=== PATIENT | female | born 1965 | race Caucasian/White ===

== ENCOUNTER 2020-11-23 13:46 | Outpatient (REF) | payer MEDICARE, MEDICAID, SELFPAY ==
--- NOTE | ~2020-11-23 | XR_ITS ---
EXAMINATION: XR CERVICAL SPINE CLINICAL INFORMATION: M54.2 - Cervicalgia COMPARISON: Radiographs cervical spine 03/29/2016 TECHNIQUE: Cervical spine is imaged in 4 views: AP, lateral, odontoid, and Fuchs. FINDINGS: The vertebral bodies are normal in height and there is normal cervical lordosis. There is no cervical vertebral compression, focal disc narrowing, erosive change, destructive process, or prevertebral soft tissue swelling. The odontoid is unremarkable. There is some mild anterior spurring mid and lower cervical vertebral bodies. XR/XR cervical spine 3V IMPRESSION: Mild anterior vertebral body spurring. No disc narrowing, vertebral compression, or spondylolisthesis.
--- NOTE | ~2020-11-23 | XR_ITS ---
EXAMINATION: XR SHOULDER, RIGHT CLINICAL INFORMATION: Right shoulder pain. COMPARISON: None. TECHNIQUE: 3 views of the right shoulder. FINDINGS: There is no evidence of acute fracture or dislocation of the right shoulder. Glenohumeral joint unremarkable. No significant degenerative change of the acromioclavicular joint is seen. No evidence of calcific tendinitis. No widening of the coracoclavicular space. XR/XR shoulder RT min 2V IMPRESSION: No significant right shoulder abnormality appreciated.
== END 2020-11-23 13:47 | disposition home or self-care (01) ==
LOC: HO.XRAY 13:46
PROVIDERS: PCP Internal Medicine; Visit Provider Nurse Practitioner Family
DX: M25.511 Pain in right shoulder (principal); M54.2 Cervicalgia; M79.641 Pain in right hand; M25.521 Pain in right elbow; M53.3 Sacrococcygeal disorders, not elsewhere classified; Z88.6 Allergy status to analgesic agent; Z88.0 Allergy status to penicillin; Z88.2 Allergy status to sulfonamides; Z88.8 Allergy status to other drugs, medicaments and biological substances; Z79.899 Other long term (current) drug therapy
CPT/HCPCS: 72040; 73030; 99212

== ENCOUNTER 2021-01-11 19:47 | Emergency (ER) | payer MEDICARE, MEDICAID, SELFPAY ==
[2021-01-11 20:08] VITALS: BP 183/93; PULSE 73; RESP 18; TEMP 36.7; O2SAT 100; BMI 26.6
--- NOTE | 2021-01-11 20:57 | ED_ITS ---
HPI - Eye Problem General Chief complaint: Eye Problems Stated complaint: eye swelling Time Seen by Provider: 01/11/21 20:50 Source: patient Mode of arrival: ambulatory Limitations: no limitations History of Present Illness HPI Narrative: Patient comes to emergency room complaining of left upper eyelid pain and swelling. Patient states it started today. Patient states she has a weird sensation in her eyelid, consisting of feeling cold air like sensation. Patient initially stated that she has a bit of blurry vision, but once with the patient she. Patient states it is mostly the discomfort of the swelling. patient denies eye discharge, no pain in the eye with eye movements Related Data Home Medications Medication Instructions Recorded Confirmed bupropion HCl 300 mg 24 hr tablet, 300 mg PO QAM 11/23/20 11/23/20 extended release (Wellbutrin XL) clonazepam 2 mg tablet 2 mg PO BID 11/23/20 11/23/20 dextroamphetamine-amphetamine 10 10 mg PO DAILY 11/23/20 11/23/20 mg tablet (Adderall) zolpidem 10 mg tablet (Ambien) 10 mg PO BEDTIME PRN 11/23/20 11/23/20 Previous Rx's Medication Instructions Recorded metoprolol succinate 50 mg capsule 50 mg PO DAILY 90 Days #90 ea 05/09/20 sprinkle, ext. release 24 hr erythromycin 5 mg/gram (0.5 %) eye 0.5 inch OPHTHALMIC (EYE) TID #3.5 01/11/21 ointment g Allergies Allergy/AdvReac Type Severity Reaction Status Date / Time penicillin G [Penicillin G] Allergy Mild RASH Verified 01/11/21 20:07 Sulfa (Sulfonamide Allergy Mild RASH Verified 01/11/21 20:07 Antibiotics) [Sulfa (Sulfonamides)] ciprofloxacin [From CIPRO] Allergy Unknown RASH Verified 01/11/21 20:07 aspirin [Aspirin] AdvReac Mild BLEEDING Verified 01/11/21 20:07 Review of Systems Review of Systems: Constitutional : No Weight loss, No Fever, No Chills, No Night Sweats, No Fatigue, No Malaise ENT/Mouth : No Hearing loss, No Ear Pain, No Nasal Congestion, No Sinus Pain, No Hoarseness, No sore throat, No Rhinorrhea, No Swallowing Difficulty Eyes: No Eye Pain, complaining of swelling and erythema in the upper eyelid on the left side, No Redness, No Foreign Body, No Discharge, No Vision Changes Cardiovascular : No Chest Pain, No SOB, No Dyspnea on Exertion, No Orthopnea, No Edema, No Palpitations Respiratory : No Cough, No Sputum, No Wheezing, No Smoke Exposure, No Dyspnea Gastrointestinal : No Nausea, No Vomiting, No Diarrhea, No Constipation, No abdominal Pain, No Hematochezia, No Melena Genitourinary : no irregular bleeding, No Dysuria, No Urinary Frequency, No Hematuria, No Urinary Incontinence, No Urgency, No Flank Pain, No Urinary Flow Changes, No Hesitancy Musculoskeletal : No joint pain, No Myalgias, No Joint Swelling Skin : No Skin Lesions, No rash Neuro : No Weakness, No Numbness, No Paresthesias, No Loss of Consciousness, No Dizziness, No Headache Psych : No Anxiety/Panic, No Depression, No SI/HI/AH/VH, No Social Issues, Heme/Lymph: No Bruising, No Bleeding,No Lymphadenopathy Endocrine : No Polyuria, No Polydipsia, No Temperature Intolerance PMFSH Past Medical History Medical History Anxiety Attention deficit Cholecystectomy planned Depression Hypertension Insomnia Lupus Surgical History H/O wrist surgery Hx of breast reduction, elective Social History Social History Advance Directives: No Advance Directives Information Provided: Yes Patient : No Physical Exam Vital Signs: Vital Signs: Last Vital Signs Temp 98.0 F 01/11/21 20:08 Pulse 73 01/11/21 20:08 Resp 18 01/11/21 20:08 BP 183/93 H 01/11/21 20:08 Pulse Ox 100 01/11/21 20:08 Body Mass Index 26.6 Course Course Course Narrative: I discussed with the patient she has blepharitis versus a melisa eolum. Patient instructed to use warm compresses and topical erythromycin ointment. Orbital cellulitis is not suspected. Discharge Plan Discharge Clinical Impression: Blepharitis of eyelid of left eye Qualifiers: Eyelid: upper Patient Disposition: Home, Self-Care Instructions: Blepharitis (ED) Prescriptions: New erythromycin 5 mg/gram (0.5 %) ointment 0.5 inch ophthalmic (eye) TID Qty: 3.5 RF: 0 No Action metoprolol succinate 50 mg capsule,sprinkle,ER 24hr 50 mg PO DAILY 90 Days Qty: 90 RF: 3 bupropion HCl [Wellbutrin XL] 300 mg tablet extended release 24 hr 300 mg PO QAM RF: 0 clonazepam 2 mg tablet 2 mg PO BID RF: 0 dextroamphetamine-amphetamine [Adderall] 10 mg tablet 10 mg PO DAILY RF: 0 zolpidem [Ambien] 10 mg tablet 10 mg PO BEDTIME PRNRF: 0
== END 2021-01-11 21:13 | disposition home or self-care (01) ==
PROVIDERS: Emergency Provider Emergency Medicine; PCP Internal Medicine
DX: H01.004 Unspecified blepharitis left upper eyelid (principal); H57.12 Ocular pain, left eye
CPT/HCPCS: 99283; 99284

== ENCOUNTER 2021-10-12 11:53 | Outpatient (REF) | payer MEDICARE, MEDICAID, SELFPAY ==
[2021-10-12 13:25] LABS: MANUAL DIFF FLAG NO
[2021-10-12 13:30] LABS: Basophils Absolute Auto 0.1 X10*3/uL (0.0-0.2); Basophils Percent Auto 1.1 % (0-2); Eosinophils Absolute Auto 0.3 X10*3/uL (0.0-0.4); Eosinophils Percent Auto 4.2 % (0-4); Hematocrit 42.8 % (37.0-47.0); Hemoglobin 13.7 g/dl (12.0-16.0); Imm Gran Abs Auto 0.02 X10*3/uL (0.00-0.03); Imm Gran Pct Auto 0.3 % (0.0-0.4); Lymphocytes Absolute Auto 2.7 X10*3/uL (1.2-4.9); Lymphocytes Percent Auto 42.3 % (20-40); Mean Corpuscular Hemoglobin 27.5 pg (27.0-33.0); Mean Corpuscular Volume 85.9 fL (80.0-98.0); Mean Platelet Volume 11.3 fL (9.4-12.3); Monocytes Absolute Auto 0.5 X10*3/uL (0.1-1.2); Monocytes Percent Auto 8.2 % (2-11); Neutrophils Absolute Auto 2.9 x10*3/uL (2.0-8.3); Neutrophils Percent Auto 43.9 % (45-73); Platelet Count 241 X10*3/uL (160-400); Red Blood Count 4.98 X10*6/uL (4.20-5.50); Red Cell Distribution Width 12.8 % (11.0-16.0); White Blood Count 6.5 X10*3/uL (4.8-10.8)
[2021-10-12 13:50] LABS: Alanine Aminotransferase 23 U/L (0-31); Alkaline Phosphatase 178 U/L (39-117); Anion Gap 12 (12-20); Aspartate Amino Transferase 25 U/L (5-31); Bilirubin Total 0.3 mg/dL (0.0-1.0); Blood Urea Nitrogen 17 mg/dL (9-16); Calcium 9.5 mg/dL (8.4-10.2); Carbon Dioxide 26 mmol/L (22-29); Chloride 108 mmol/L (96-108); Cholesterol 162 mg/dL; Estimated Glomerular Filt Rate 54; Glucose Fasting 95 mg/dL (60-99); HDL Cholesterol 33 mg/dL; LDL Cholesterol Calculated 91 mg/dl; Potassium 4.3 mmol/L (3.3-5.1); Sodium 142 mmol/L (135-145); Total Protein 7.5 g/dL (6.5-8.0); Triglycerides 193 mg/dL
[2021-10-12 14:02] LABS: Rheumatoid Factor < 15.0 IU/mL (<15.0)
[2021-10-14 12:52] LABS: Anti DNA DS Antibody <1 IU/mL; Antibody to SS-A Antigen <1.0 NEG AI (<1.0 NEG); Antibody to SS-B Antigen <1.0 NEG AI (<1.0 NEG)
[2021-10-18 14:31] LABS: Vitamin D 25-OH, D2 <4 ng/mL; Vitamin D 25-OH, D3 28 ng/mL; Vitamin D 25-OH, Total 28 ng/mL (30-100)
[2021-10-18 16:32] LABS: Cyclic Citrullinated Peptide <16 UNITS
[2021-10-19 14:41] LABS: Anti Nuclear Antibody Screen NEGATIVE (NEGATIVE)
== END 2021-10-12 11:54 | disposition home or self-care (01) ==
LOC: HO.10HDL 11:53
PROVIDERS: Visit Provider Internal Medicine
DX: Z00.00 Encounter for general adult medical examination without abnormal findings (principal); M25.50 Pain in unspecified joint; D64.9 Anemia, unspecified; E55.9 Vitamin D deficiency, unspecified; E78.5 Hyperlipidemia, unspecified
CPT/HCPCS: 36415; 80053; 80061; 82306; 85025; 86038; 86039; 86200; 86225; 86235; 86431

== ENCOUNTER → 2021-10-13 09:33 | Outpatient (BNVA) | payer MEDICARE, MEDICAID, SELFPAY | PROVIDERS: PCP Internal Medicine; Visit Provider Internal Medicine | DX: M47.816 Spondylosis without myelopathy or radiculopathy, lumbar region (principal); M54.2 Cervicalgia; M25.519 Pain in unspecified shoulder | CPT/HCPCS: 99212 ==

== ENCOUNTER 2021-11-08 09:31 | Outpatient (REF) | payer MEDICARE, MEDICAID, SELFPAY ==
--- NOTE | ~2021-11-08 | XR_ITS ---
EXAMINATION: XR THORACOLUMBAR SPINE CLINICAL INFORMATION: M54.6 - Pain in thoracic spine COMPARISON: Chest radiographs 02/03/2016, lumbar radiographs 02/12/2019. TECHNIQUE: Thoracic spine is imaged in frontal and 2 lateral views for a total of 3 views. FINDINGS: There is borderline levocurvature thoracolumbar spine with mild thoracic kyphosis. There is no interval thoracic vertebral compression, spondylolisthesis, destructive process, or paraspinal soft tissue swelling. Again, there are multilevel degenerative disc changes with mild thoracic disc narrowing and vertebral spurring. XR/XR thoracic spine 2V IMPRESSION: -Multilevel degenerative disc changes lower mid to lower thoracic spine. -No vertebral compression, spondylolisthesis, or destructive process.
--- NOTE | 2021-11-08 09:38 | ECG_ITS ---
Test Reason : HTN Blood Pressure : / mmHG Vent. Rate : 060 BPM Atrial Rate : 060 BPM P-R Int : 124 ms QRS Dur : 080 ms QT Int : 426 ms P-R-T Axes : 031 026 043 degrees QTc Int : 426 ms Normal sinus rhythm Normal ECG When compared with ECG of 11-DEC-2017 17:35, Minimal criteria for Inferior infarct are no longer Present Referred By: Adela Lopez Electronically Signed By:KESHA GARIBAY MD
[2021-11-08 10:47] LABS: C Reactive Protein 0.26 mg/dL (< or = 0.50)
[2021-11-08 10:58] LABS: Erythrocyte Sedimentation Rate 19 MM/HR (0-20)
== END 2021-11-08 09:32 | disposition home or self-care (01) ==
LOC: HO.LAB 09:31
PROVIDERS: Absent Provider Nurse Practitioner Family; PCP Internal Medicine; Visit Provider Internal Medicine
DX: I10 Essential (primary) hypertension (principal); M25.50 Pain in unspecified joint; M54.6 Pain in thoracic spine; L93.0 Discoid lupus erythematosus; M47.816 Spondylosis without myelopathy or radiculopathy, lumbar region
CPT/HCPCS: 36415; 72070; 85652; 86140; 93005; 99202

== ENCOUNTER 2022-02-08 14:38 | Outpatient (REF) | payer MEDICARE, MEDICAID, SELFPAY ==
[2022-02-08 16:06] LABS: Alanine Aminotransferase 20 U/L (0-31); Albumin Level 4.3 g/dL (3.5-5.0); Alkaline Phosphatase 180 U/L (39-117); Anion Gap 12 (12-20); Aspartate Amino Transferase 23 U/L (5-31); Bilirubin Total 0.7 mg/dL (0.0-1.0); Blood Urea Nitrogen 14 mg/dL (9-16); Calcium 9.6 mg/dL (8.4-10.2); Carbon Dioxide 28 mmol/L (22-29); Chloride 106 mmol/L (96-108); Cholesterol 198 mg/dL; Estimated Glomerular Filt Rate 51; Glucose Random 91 mg/dL (60-115); HDL Cholesterol 47 mg/dL; LDL Cholesterol Calculated 124 mg/dl; Potassium 4.4 mmol/L (3.3-5.1); Sodium 142 mmol/L (135-145); Total Protein 7.5 g/dL (6.5-8.0); Triglycerides 136 mg/dL
[2022-02-08 16:28] LABS: Thyroid Stimulating Hormone 1.22 uIU/mL (0.32-4.0)
== END 2022-02-08 14:39 | disposition home or self-care (01) ==
LOC: HO.LAB 14:38
PROVIDERS: PCP Internal Medicine; Visit Provider Internal Medicine
DX: I10 Essential (primary) hypertension (principal)
CPT/HCPCS: 36415; 80053; 80061; 83735; 84443

== ENCOUNTER 2022-02-22 12:40 | Day surgery (SDC) | payer MEDICARE, MEDICAID, SELFPAY ==
--- NOTE | 2022-02-21 10:32 | P.CONAN_ITS ---
Documented by User: Ivory Flores NP 02/21/22 10:37 HPI - Anesthesia Eval Consult details Narrative: 56yo F for Colonoscopy Von Willebrands requiring DDAVP 20mcg preop per heme PMFSH Active Problems Active Problems: All Active Problems (Updated 02/10/22 @ 17:12 by Jeni Hwang MD) Von Willebrand disease (Chronic) Diarrhea following gastrointestinal surgery (Acute) Discoid lupus (Acute) Foot callus (Acute) Essential hypertension (Acute) Lumbar spondylosis (Acute) Joint pain (Acute) Thoracic spine pain (Acute) Breast pain, left (Acute) Physical exam (Acute) Diarrhea (Acute) Screen for colon cancer (Acute) Mild recurrent major depression (Acute) Insomnia (Acute) DANII (generalized anxiety disorder) (Acute) IBS (irritable bowel syndrome) (Acute) Hordeolum externum left upper eyelid (Acute) Right elbow pain (Acute) Cervicalgia (Acute) Right shoulder pain (Acute) Right hand pain (Acute) Past Medical History Medical History Anxiety Attention deficit Breast pain, left Cholecystectomy planned Depression Diarrhea Diarrhea following gastrointestinal surgery Discoid lupus Essential hypertension Foot callus DANII (generalized anxiety disorder) Hordeolum externum left upper eyelid Hypertension IBS (irritable bowel syndrome) Insomnia Joint pain Mild recurrent major depression Physical exam Right elbow pain Screen for colon cancer Thoracic spine pain Family History Family History Father Depressed Family history of thyroid problem Stroke Mother High blood pressure Kidney problem Arthritis Surgical History Surgical History (Updated 02/08/22 @ 16:48 by Jeni Hwang MD) H/O wrist surgery History of episiotomy History of left salpingo-oophorectomy Hx laparoscopic cholecystectomy Hx of breast reduction, elective Tubal ligation status Social History Social History (Updated 02/08/22 @ 14:14 by Juana Kumar) Household Members: Family Housing: House Alcohol intake: current Alcohol intake frequency: does not drink Alcohol type: wine and hard liquor Patient Tobacco Use Status: Never used Tobacco e-Cigarette/Vaping Use: Never Used Second Hand Smoke Exposure: Yes Are you DNR?: No Advance Directives: No Advance Directives Information Provided: Yes Recently lost weight without trying: No Nutrition Risks: No Nutritional Risk Patient : No service: No Current occupational status: employed Current occupational exposures/hazards: No Cognitive needs: No Hearing needs: No Vision needs: No Meds Allergies Allergy/AdvReac Type Severity Reaction Status Date / Time ciprofloxacin [From CIPRO] Allergy Intermediate RASH Verified 11/08/21 10:38 penicillin G [Penicillin G] Allergy Mild RASH Verified 11/08/21 10:38 Sulfa (Sulfonamide Allergy Mild RASH Verified 11/08/21 10:38 Antibiotics) [Sulfa (Sulfonamides)] aspirin [Aspirin] AdvReac Mild BLEEDING Verified 11/08/21 10:38 Home Medications Medication Instructions Recorded Confirmed Last Taken Type bupropion HCl 300 mg 24 hr tablet, 300 mg PO QAM 11/23/20 02/22/22 02/21/22 History extended release (Wellbutrin XL) clonazepam 2 mg tablet 2 mg PO BID 11/23/20 02/22/22 02/21/22 History dextroamphetamine-amphetamine 10 10 mg PO DAILY 11/23/20 02/22/22 02/21/22 History mg tablet (Adderall) zolpidem 10 mg tablet (Ambien) 10 mg PO BEDTIME PRN Sleep 11/23/20 02/22/22 02/21/22 History duloxetine 30 mg capsule,delayed 30 mg PO DAILY 01/12/21 02/22/22 02/21/22 Histo ry release ascorbic acid (vitamin C) 500 mg 500 mg PO DAILY 02/08/22 02/22/22 02/08/22 History chewable tablet (Vitamin C) cholestyramine (with sugar) 4 gram 4 g PO BID 02/08/22 02/22/22 02/19/22 History powder for susp in a packet (Questran) dicyclomine 20 mg tablet 1 tab PO DAILY 02/08/22 02/22/22 02/19/22 History vitamin D3 250 mcg (10,000 1 tab PO DAILY 02/08/22 02/22/22 02/08/22 History unit)-folic acid 1 mg tablet zinc 50 mg capsule 50 mg PO DAILY 02/08/22 02/22/22 02/21/22 History Exam Exam Date and Time: February 21, 2022 1032 Pertinent Lab Results Pertinent Lab Results: Laboratory Tests 10/12/21 02/08/22 12:01 14:56 WBC 6.5 Hgb 13.7 Hct 42.8 Plt Count 241 Sodium 142 Potassium 4.4 Chloride 106 Carbon Dioxide 28 BUN 14 Creatinine 1.11 Narrative Narrative: EKG 10/2021 Vent. Rate : 060 BPM ? ? Atrial Rate : 060 BPM ?? P-R Int : 124 ms? QRS Dur : 080 ms ? ? QT Int : 426 ms ? ? ? P-R-T Axes : 031 026 043 degrees ?? QTc Int : 426 ms ? Normal sinus rhythm Normal ECG When compared with ECG of 11-DEC-2017 17:35, Minimal criteria for Inferior infarct are no longer Present Assessment and Plan Assessment Anesthesia Assessment: Chart Reviewed Documented by User: Rebecca Galindo MD 02/22/22 13:48 [facility] Past Medical History Medical History Anxiety Attention deficit Breast pain, left Cholecystectomy planned Depression Diarrhea Diarrhea following gastrointestinal surgery Discoid lupus Essential hypertension Foot callus DANII (generalized anxiety disorder) Hordeolum externum left upper eyelid Hypertension IBS (irritable bowel syndrome) Insomnia Joint pain Mild recurrent major depression Physical exam Right elbow pain Screen for colon cancer Thoracic spine pain Family History Family History Father Depressed Family history of thyroid problem Stroke Mother High blood pressure Kidney problem Arthritis Family history of problems with anesthesia: No Surgical History Surgical History (Updated 02/08/22 @ 16:48 by Jeni Hwang MD) H/O wrist surgery History of episiotomy History of left salpingo-oophorectomy Hx laparoscopic cholecystectomy Hx of breast reduction, elective Tubal ligation status History of Problems with Anesthesia: No Social History Social History (Updated 02/08/22 @ 14:14 by Juana Kumar) Household Members: Family Housing: House Alcohol intake: current Alcohol intake frequency: does not drink Alcohol type: wine and hard liquor Patient Tobacco Use Status: Never used Tobacco e-Cigarette/Vaping Use: Never Used Second Hand Smoke Exposure: Yes Are you DNR?: No Advance Directives: No Advance Directives Information Provided: Yes Recently lost weight without trying: No Nutrition Risks: No Nutritional Risk Patient : No service: No Current occupational status: employed Current occupational exposures/hazards: No Cognitive needs: No Hearing needs: No Vision needs: No Meds Allergies Allergy/AdvReac Type Severity Reaction Status Date / Time ciprofloxacin [From CIPRO] Allergy Intermediate RASH Verified 11/08/21 10:38 penicillin G [Penicillin G] Allergy Mild RASH Verified 11/08/21 10:38 Sulfa (Sulfonamide Allergy Mild RASH Verified 11/08/21 10:38 Antibiotics) [Sulfa (Sulfonamides)] aspirin [Aspirin] AdvReac Mild BLEEDING Verified 11/08/21 10:38 Home Medications Medication Instructions Recorded Confirmed Last Taken Type bupropion HCl 300 mg 24 hr tablet, 300 mg PO QAM 11/23/20 02/22/22 02/21/22 History extended release (Wellbutrin XL) clonazepam 2 mg tablet 2 mg PO BID 11/23/20 02/22/22 02/21/22 History dextroamphetamine-amphetamine 10 10 mg PO DAILY 11/23/20 02/22/22 02/21/22 History mg tablet (Adderall) zolpidem 10 mg tablet (Ambien) 10 mg PO BEDTIME PRN Sleep 11/23/20 02/22/22 02/21/22 History duloxetine 30 mg capsule,delayed 30 mg PO DAILY 01/12/21 02/22/22 02/21/22 History release ascorbic acid (vitamin C) 500 mg 500 mg PO DAILY 02/08/22 02/22/22 02/08/22 History chewable tablet (Vitamin C) cholestyramine (with sugar) 4 gram 4 g PO BID 02/08/22 02/22/22 02/19/22 History powder for susp in a packet (Questran) dicyclomine 20 mg tablet 1 tab PO DAILY 02/08/22 02/22/22 02/19/22 History vitamin D3 250 mcg (10,000 1 tab PO DAILY 02/08/22 02/22/22 02/08/22 History unit)-folic acid 1 mg tablet zinc 50 mg capsule 50 mg PO DAILY 02/08/22 02/22/22 02/21/22 History Exam Height,Weight and Vital Signs: Height 5 ft 4 in Weight 75.296 kg Vital Signs Temp Pulse Resp BP Pulse Ox O2 Del Method 02/22/22 13:35 89 18 127/70 97 Room Air 02/22/22 12:44 96.7 F L 93 16 117/76 99 Room Air Airway Mallampati Class: III TM Dist: >3cm Neck ROM: Limited Loose/Missing/Broken Teeth: No Heart: RRR Lungs: CTAB Assessment and Plan Assessment Anesthesia Assessment: Anesthesia Plan Discussed Final Anesthetic Review Family History of Problems with Anesthesia: No History of Problems with Anesthesia: No NPO: Yes ASA Class: III Final Preanesthetic Review: No Changes in Pt Med Stat, Meds/Allgs Chart Reviewed, Consent Obtained/Reviewed and Anes Risks/Benef Reviewed Patient Risk: Intermediate Procedure Risk: Low Assessment/Block/Sedation in SS: Assess/Block/Sedation-SS Anesthetic Plan Anesthetic Plan: MAC: Disposition: Standard PACU
[2022-02-22 08:14] VITALS: BMI 28.5
[2022-02-22] MEDS: Lactated Ringers 1,000 ML 100 ML IVCONT (12:40)
[2022-02-22 12:44] VITALS: BP 117/76; PULSE 93; RESP 16; TEMP 35.9; O2SAT 99
[2022-02-22] MEDS: Desmopressin Acetate 20 MCG in 0.9 % Sodium Chloride 50 ML 100 MCG IV (13:08)
--- NOTE | 2022-02-22 13:28 | PC.NURSE ---
PT STS FEELS ANXIOUS, TINGLING WHEN GETTING DDAVP. NO REDNESS NOTED NO RASH LS CLEAR PWD SPEAKING IN FULL SENTENCES DENIES PAIN ANESTHESIA AWARE
[2022-02-22 13:35] VITALS: BP 127/70; PULSE 89; RESP 18; O2SAT 97
--- NOTE | 2022-02-22 13:46 | MHC.SHP ---
Pre-Procedural Eval Section A Date of Service: 02/22/22 The patient is an INPATIENT: No Changes since office visit: No Cold of Flu in the past 2 weeks, No New Medical Problems, No Changes in Medication and No Patient answered all questions The History & Physical has been completed within 30 days and I have reviewed it.: Yes Section B Chief Complaint: Irritable bowel syndrome with diarrhea Allergies: Allergies Allergy/AdvReac Type Severity Reaction Status Date / Time ciprofloxacin [From CIPRO] Allergy Intermediate RASH Verified 11/08/21 10:38 penicillin G [Penicillin G] Allergy Mild RASH Verified 11/08/21 10:38 Sulfa (Sulfonamide Allergy Mild RASH Verified 11/08/21 10:38 Antibiotics) [Sulfa (Sulfonamides)] aspirin [Aspirin] AdvReac Mild BLEEDING Verified 11/08/21 10:38 Plan I have reviewed the history and physical and performed a pertinent physical examination on my patient. No changes have occurred unless specified.
[2022-02-22 14:13] VITALS: BP 95/57; PULSE 92; RESP 16; TEMP 37.3; O2SAT 98
--- NOTE | 2022-02-22 14:14 | PM.OP ---
Brief Operative Note Date of Service: 02/22/22 Pre-op diagnosis: rectal bleeding Post-op diagnosis: same Procedure: colonosocpy Surgeon: Shine Reveles Anesthesia: MAC Was an Rotary Saw Operator used for this Procedure?: No Estimated blood loss (mL): 0 Pathology: none sent Condition: stable Disposition: PACU
[2022-02-22 14:28] VITALS: BP 117/73; PULSE 83; RESP 18; TEMP 36.1; O2SAT 100
--- NOTE | 2022-02-23 02:10 | OP_ITS ---
SURGEON: Shine Reveles MD PREOPERATIVE DIAGNOSIS: POSTOPERATIVE DIAGNOSIS: PROCEDURE PERFORMED: ESTIMATED BLOOD LOSS: COMPLICATIONS: ANESTHESIA: ASSISTANTS: SPECIMENS: PROCEDURE: Colonoscopy to the terminal ileum. INDICATION: Rectal bleeding. MEDICATIONS: Monitored anesthesia care. PROCEDURE DESCRIPTION: The procedure was performed on 02/22/2022. History and physical were performed. The risks and benefits of the procedure were explained to the patient. Informed consent was obtained. The patient was placed in the left lateral decubitus position. A digital rectal exam was performed and was found to be normal. The Olympus pediatric video colonoscope was introduced into the rectum and advanced to the cecum without difficulty. The cecum was identified by transillumination, palpation, and identification of ileocecal valve. Examination was performed. The scope was removed. She tolerated the procedure well and was taken to recovery area in stable condition. FINDINGS: The terminal ileum was normal. The visualized colonic mucosa was normal. The quality of the prep was good. No polyps were identified. Small internal hemorrhoids were noted on retroflexed examination. IMPRESSION: Rectal bleeding, normal colonoscopy. RECOMMENDATIONS: 1. Follow up as needed. 2. Repeat colonoscopy is recommended in 10 years for average risk individuals. MD HARLAN Williamson/TATIANNA / [phone]
== END 2022-02-22 15:03 | disposition home or self-care (01) ==
PROVIDERS: PCP Internal Medicine; Visit Provider Internal Medicine Gastroenterology
PROC: 0DJD8ZZ Inspection of Lower Intestinal Tract, Via Natural or Artificial Opening Endoscopic (ICD-10-PCS; CPT 45378; principal; 2022-02-22 13:40)
DX: K58.0 Irritable bowel syndrome with diarrhea (principal); K62.5 Hemorrhage of anus and rectum; K64.8 Other hemorrhoids; D68.00 Von Willebrand disease, unspecified; I10 Essential (primary) hypertension; L93.0 Discoid lupus erythematosus; M79.7 Fibromyalgia; G43.909 Migraine, unspecified, not intractable, without status migrainosus; F32.A Depression, unspecified; F41.1 Generalized anxiety disorder; Z90.49 Acquired absence of other specified parts of digestive tract; Z79.899 Other long term (current) drug therapy; Z88.0 Allergy status to penicillin; Z88.2 Allergy status to sulfonamides
CPT/HCPCS: 45378; J2597

== ENCOUNTER 2022-04-11 16:22 | Outpatient (REF) | payer MEDICARE, MEDICAID, SELFPAY ==
--- NOTE | ~2022-04-11 | XR_ITS ---
EXAMINATION: XR LUMBOSACRAL SPINE CLINICAL INFORMATION: Low back pain. COMPARISON: Previous dated 02/12/2019. TECHNIQUE: Three views of the lumbosacral spine. FINDINGS: Degenerative changes are noted here. Loss of disc height and several areas of mild spurring. Degeneration of the posterior elements from L4-L5 and L5-S1 and also degeneration at L3-L4. There is no convincing evidence for an acute compression injury here. There is persistent mild scoliosis convex right apex at L2. Some degeneration of the SI joints is noted. No listhesis XR/XR lumbar spine 2-3V IMPRESSION: Once again degenerative changes are seen. These are mildly ongoing from 2019. These appear moderate. No acute finding. If further evaluation is warranted recommend .
[2022-04-11 17:26] LABS: Vitamin D 25-OH Total 22.8 ng/mL (>30)
[2022-04-11 17:39] LABS: Folate 10.2 ng/mL (> or = 4.0); Vitamin B12 1993 pg/mL (200-900)
== END 2022-04-11 16:23 | disposition home or self-care (01) ==
LOC: HO.LAB 16:22
PROVIDERS: PCP Internal Medicine; Visit Provider Nurse Practitioner Family
DX: R79.89 Other specified abnormal findings of blood chemistry (principal); I10 Essential (primary) hypertension; M54.50 Low back pain, unspecified
CPT/HCPCS: 36415; 72100; 82306; 82607; 82746

== ENCOUNTER 2022-10-30 14:45 | Outpatient (REF) | payer MEDICARE, MEDICAID, SELFPAY ==
--- NOTE | ~2022-10-30 | XR_ITS ---
EXAMINATION: XR ABDOMEN KUB CLINICAL INDICATION: Constipation. COMPARISON: None available. TECHNIQUE: AP view of the abdomen. FINDINGS: There is a large stool burden. There is no evidence of ileus or obstruction. No free intraperitoneal air is seen. No unusual soft tissue calcifications are noted. There are right upper quadrant surgical clips. There is no acute osseous abnormalities. XR/XR KUB IMPRESSION: There is a large stool burden, consistent with the clinical impression of constipation. No obstruction or ileus is seen.
== END 2022-10-30 14:46 | disposition home or self-care (01) ==
LOC: HO.XRAY 14:45
PROVIDERS: PCP Internal Medicine; Visit Provider Nurse Practitioner Family
DX: K59.00 Constipation, unspecified (principal)
CPT/HCPCS: 74018

== ENCOUNTER 2023-01-01 10:39 | Emergency (ER) | payer MEDICARE, MEDICAID, SELFPAY ==
[2023-01-01 10:55] VITALS: BP 152/81; PULSE 73; RESP 18; TEMP 36.7; O2SAT 98; BMI 27.5
--- NOTE | 2023-01-01 12:47 | ED.SKABFB ---
HPI - Skin/Abscess/Foreign Bdy General Chief complaint: Skin/Abscess/Foreign Body Stated complaint: rash Time Seen by Provider: 01/01/23 12:47 Source: patient, RN notes reviewed and old records reviewed Mode of arrival: ambulatory History of Present Illness HPI narrative: 57-year-old female with past medical history of lupus, HTN, Von Willebrand's, IBS, anxiety, presenting to the ED c/o intermittent erythematous patchy rash noted diffusely over body x 3 days. Admits rash is itchy. Admits to taking Benadryl at home with relief, took DISTRIBUTION ASSOCIATE with symptomatic improvement. Denies new exposures including soaps, lotions, detergents, medications, insect bites, throat closing sensation, cough, SOB. MD complaint: rash Related Data Home Medications Medication Instructions Recorded Confirmed bupropion HCl 300 mg 24 hr tablet, 300 mg PO QAM 11/23/20 06/05/22 extended release (Wellbutrin XL) clonazepam 2 mg tablet 2 mg PO BID 11/23/20 06/05/22 dextroamphetamine-amphetamine 10 10 mg PO DAILY 11/23/20 06/05/22 mg tablet (Adderall) zolpidem 10 mg tablet (Ambien) 10 mg PO BEDTIME PRN Sleep 11/23/20 06/05/22 duloxetine 30 mg capsule,delayed 30 mg PO DAILY 01/12/21 06/05/22 release ascorbic acid (vitamin C) 500 mg 500 mg PO DAILY 02/08/22 06/05/22 chewable tablet (Vitamin C) zinc 50 mg capsule 50 mg PO DAILY 02/08/22 06/05/22 betamethasone dipropionate 0.05 % topical 06/05/22 06/05/22 lotion Previous Rx's Medication Instructions Recorded amlodipine 2.5 mg tablet 2.5 mg PO DAILY 90 days #90 tabs 10/20/22 cholecalciferol (vitamin D3) 25 25 mcg PO DAILY #90 tabs 10/21/22 mcg (1,000 unit) tablet cholestyramine (with sugar) 4 gram 4 g PO BID PRN diarrhea 30 days 10/21/22 powder for susp in a packet #60 ea (Questran) metoprolol succinate 50 mg capsule 50 mg PO DAILY 90 days #90 ea 10/24/22 sprinkle, ext. release 24 hr polyethylene glycol 3350 17 17 g PO DAILY #119 grams 11/17/22 gram/dose oral powder (Miralax) cetirizine 10 mg capsule (Zyrtec) 10 mg PO DAILY PRN allergy 01/01/23 symptoms #14 caps diphenhydramine HCl 25 mg capsule 25 mg PO TID PRN allergic reaction 01/01/23 (Benadryl) #14 caps prednisone 20 mg tablet 40 mg PO DAILY 5 days #10 tabs 01/01/23 Allergies Allergy/AdvReac Type Severity Reaction Status Date / Time ciprofloxacin [From CIPRO] Allergy Intermediate RASH Verified 10/30/22 14:10 penicillin G [Penicillin G] Allergy Mild RASH Verified 10/30/22 14:10 Sulfa (Sulfonamide Allergy Mild RASH Verified 10/30/22 14:10 Antibiotics) [Sulfa (Sulfonamides)] aspirin [Aspirin] AdvReac Mild BLEEDING Verified 10/30/22 14:10 Review of Systems Review of Systems: Constitutional: No Fever, No Chills ENT/Mouth: No Ear Pain, No Nasal Congestion, No Sinus Pain, No sore throat, No Rhinorrhea, No Swallowing Difficulty Cardiovascular: No Chest Pain, No SOB Respiratory: No Cough, No Sputum, No Wheezing Gastrointestinal: No Nausea, No Vomiting, No Abdominal pain Genitourinary: No Dysuria,No Hematuria, NNo Flank Pain Musculoskeletal: No joint pain, No Myalgias, No Joint Swelling Skin: No Skin Lesions, +rod Neuro: No Weakness, No Numbness Yes all other systems are reviewed and are negative Constitutional: Constitutional: Reports as per [facility] Past Medical History Attestation statement: The following information was validated with the patient. Source: old records reviewed Medical History Anxiety Attention deficit Breast pain, left Cholecystectomy planned Depression Diarrhea Diarrhea following gastrointestinal surgery Discoid lupus Essential hypertension Foot callus ADNII (generalized anxiety disorder) Hordeolum externum left upper eyelid Hypertension IBS (irritable bowel syndrome) Insomnia Joint pain Mild recurrent major depression Physical exam Right elbow pain Screen for colon cancer Thoracic spine pain Surgical History H/O wrist surgery History of episiotomy History of left salpingo-oophorectomy Hx laparoscopic cholecystectomy Hx of breast reduction, elective Tubal ligation status Family History Family History Father Depressed Family history of thyroid problem Stroke Mother High blood pressure Kidney problem Arthritis Social History Social History Household Members: Family Housing: House Alcohol intake: current Alcohol intake frequency: holidays/special occasions only Alcohol type: wine and hard liquor Patient Tobacco Use Status: Never used Tobacco e-Cigarette/Vaping Use: Never Used Second Hand Smoke Exposure: Yes service: No Current occupational status: employed Current occupational exposures/hazards: No Cognitive needs: No Hearing needs: No Vision needs: Yes Physical Exam Vital Signs: Vital Signs: Last Vital Signs Temp 98.1 F 01/01/23 10:55 Pulse 73 01/01/23 10:55 Resp 18 01/01/23 10:55 BP 152/81 H 01/01/23 10:55 Pulse Ox 98 01/01/23 10:55 O2 Del Method Room Air 01/01/23 10:55 BMI result Body Mass Index 27.5 Const: General: cooperative, healthy appearing and no acute distress Orientation/consciousness: patient oriented x3 Limitations: no limitations HEENT: Head: Yes normal to inspection and Yes atraumatic Ears: hearing grossly normal bilaterally General nose exam: Normal external nose present Face and sinus: Yes normal facial exam Mouth: Normal oral and palatal mucosa present Throat: Yes posterior oropharynx normal, Yes tonsils normal, Yes uvula midline, No peritonsillar mass, No uvula laterally displaced and No uvular edema Eyes: General: appearance normal, both eyes and all related structures EOM: EOMs intact bilaterally Neck: Neck: Yes normal visual inspection and Yes no meningeal signs Resp: Effort & Inspection: normal respiratory effort, no respiratory distress and no stridor Auscultation: clear to auscultation bilaterally and no wheezes Cardio: Rate: regular rate Heart sounds: S1 normal heart sound present and S2 normal heart sound present Skin: Other: no appreciable rash at present. No palm/sole involvement or MM involvement Wounds: no wounds Neuro: General: patient oriented x3, tone normal and no meningeal signs Cranial nerves: Yes CN's II-XII intact bilaterally Gait exam (Neuro): Normal gait present Extrem: General: Yes normal to inspection Medical Decision Making Medical Decision Making MDM Narrative: 57-year-old female with past medical history of lupus, HTN, Von Willebrand's, IBS, anxiety, presenting to the ED c/o intermittent erythematous patchy rash noted diffusely over body x 3 days. On exam VSS, NAD, nontoxic appearing, no appreciable at present, no palm/stool or mucous membrane involvement. Patient admits symptoms resolved after taking Benadryl however recur when Benadryl wears off. Patient showed this senior mortgage underwriter multiple pictures on phone of diffuse patchy urticarial rash over body. No sloughing/satellite lesions Concern for contact dermatitis vs allergic reaction. No evidence of anaphylaxis. No evidence of cellulitis Plan: Benadryl/Zyrtec, p.o. prednisone, family court counsellor follow-up Differential Diagnosis Differential Diagnoses: The differential diagnosis associated with the presentation includes As above External Record Review External record reviewed: Inpatient record, Office record, Outpatient record, Prior outpatient labs, Prior outpatient radiology, Primary care record and Outside ED record Tests considered The following testing was considered but not selected: As above Discharge Plan Discharge Clinical Impression: Rash Patient Disposition: Home, Self-Care Instructions: Acute Rash (ED) Additional Instructions: Continue taking Benadryl as needed. In the mornings take Zyrtec this will not make you drowsy Prednisone as a steroid, take for the next 5 days You may also apply [id number] topical hydrocortisone to rash only when this recurs Follow-up with an family court counsellor If symptoms persist or worsening of shortness of breath, wheezing or throat closing sensation return to the ED Prescriptions: New prednisone 20 mg tablet 40 mg PO DAILY 5 Days Qty: 10 0RF diphenhydramine HCl [Benadryl] 25 mg capsule 25 mg PO TID PRN (Reason: allergic reaction) Qty: 14 0RF Zyrtec 10 mg capsule 10 mg PO DAILY PRN (Reason: allergy symptoms) Qty: 14 0RF No Action amlodipine 2.5 mg tablet 2.5 mg PO DAILY 90 Days Qty: 90 1RF cholecalciferol (vitamin D3) 25 mcg (1,000 unit) tablet 25 mcg PO DAILY Qty: 90 0RF cholestyramine (with sugar) [Questran] 4 gram powder in packet 4 g PO BID PRN (Reason: diarrhea) 30 Days Qty: 60 3RF Rx Instructions: administer w/meal; avoid other meds within 1hr before or 4-6hr after dose metoprolol succinate 50 mg capsule,sprinkle,ER 24hr 50 mg PO DAILY 90 Days Qty: 90 3RF polyethylene glycol 3350 [Miralax] 17 gram/dose powder 17 g PO DAILY Qty: 119 0RF ascorbic acid (vitamin C) [Vitamin C] 500 mg Tablet,Chewable 500 mg PO DAILY zinc 50 mg Capsule 50 mg PO DAILY duloxetine 30 mg capsule,delayed release(DR/EC) 30 mg PO DAILY betamethasone dipropionate 0.05 % lotion topical bupropion HCl [Wellbutrin XL] 300 mg tablet extended release 24 hr 300 mg PO QAM clonazepam 2 mg tablet 2 mg PO BID dextroamphetamine-amphetamine [Adderall] 10 mg tablet 10 mg PO DAILY zolpidem [Ambien] 10 mg tablet 10 mg PO BEDTIME PRN (Reason: Sleep) Referrals: Stewart Ray MD [Physician] - Justen Michel DO [Physician] - Ashlyn Dong MD [Physician] - Steven Escobedo MD [Physician] - Adela Kwan MD [Primary Care Provider] - Interventions: ED Discharge Assessment Last Done: 01/01/23 12:50
--- NOTE | 2023-01-01 12:49 | PC.NURSE ---
eval and dc by pit
== END 2023-01-01 13:12 | disposition home or self-care (01) ==
PROVIDERS: Emergency Provider Emergency Medicine; PCP Internal Medicine
DX: R21 Rash and other nonspecific skin eruption (principal)
CPT/HCPCS: 99282; 99283

== ENCOUNTER 2023-03-06 13:15 | Outpatient (AMB) | payer MEDICARE, MEDICAID, SELFPAY ==
[2023-03-06 13:18] VITALS: BP 140/90; PULSE 63; O2SAT 99; BMI 27.3
--- NOTE | 2023-03-06 13:18 | A.OFFPC_ITS ---
Vital Signs 03/06/23 13:18 Height 5 ft 4 in Weight 159 lb BMI 27.3 BP 140/90 H Blood Pressure Location Lt brachial Position Sitting Pulse 63 Pulse Source Pulse Oximeter Pulse Oximetry (%) 99 Oxygen Delivery Method Room Air Intake Visit Reasons: HTN, Lymbar spodylosis Intake Note: Patient here for a follow up HTN,Lumbar spondylosis Catering Attendant Required: No Accompanied by: Self / Same As Patient Allergies ciprofloxacin [From CIPRO] Allergy (Intermediate, Verified 03/06/23 13:27) RASH penicillin G [Penicillin G] Allergy (Mild, Verified 03/06/23 13:27) RASH Sulfa (Sulfonamide Antibiotics) [Sulfa (Sulfonamides)] Allergy (Mild, Verified 03/06/23 13:27) RASH aspirin [Aspirin] Adverse Reaction (Mild, Verified 03/06/23 13:27) BLEEDING Medication List - Last Reconciled 03/06/23 by Adela Lopez MD amlodipine 2.5 mg PO DAILY 90 days ascorbic acid (vitamin C) (Vitamin C) 500 mg PO DAILY betamethasone dipropionate 0.05% topical bupropion HCl (Wellbutrin XL) 300 mg PO QAM cetirizine (Zyrtec) 10 mg PO DAILY PRN cholecalciferol (vitamin D3) 25 mcg PO DAILY cholestyramine (with sugar) 4 gram (Questran) 4 grams PO BID PRN 30 days clonazepam 2 mg PO BID dextroamphetamine-amphetamine 10 mg (Adderall) 10 mg PO DAILY diphenhydramine HCl (Benadryl) 25 mg PO TID PRN duloxetine 30 mg PO DAILY metoprolol succinate ER 50 mg PO DAILY 90 days polyethylene glycol 3350 (Miralax) 17 grams PO DAILY zinc 50 mg PO DAILY zolpidem (Ambien) 10 mg PO BEDTIME PRN Tobacco use date assessed: 10/30/22 Dental Screening Dental Screen Date: 03/06/23 Did you have a dental visit in the last 12 months?: Yes Did you have a dental problem in the last 6 months where you did not have access to dental care?: No Was dental information given to patient?: Patient has dentist HPI HPI Comments History of Present Illness Details This is a 57-year-old female with hypertension, vonWillebrand's disease, and mild recurrent major depression that complains of right ring finger pain due to crush injury that happened while she was getting out of the shower and the finger got stuck between shower door and metal to days ago. Swelling has improved on its own. Blood pressure borderline normal to elevated and will be recheck in 3 weeks by nurse navigator. Denies any active bleeding and avoids aspirin due to her von Willebrand's disease. Depression stable with bupropion. Still complains of back pain and will be referred to pain management. [facility] Medical History Diarrhea following gastrointestinal surgery Discoid lupus Foot callus Essential hypertension Joint pain Thoracic spine pain Breast pain, left Physical exam Diarrhea Screen for colon cancer Mild recurrent major depression DANII (generalized anxiety disorder) IBS (irritable bowel syndrome) Hordeolum externum left upper eyelid Right elbow pain Cholecystectomy planned Insomnia Depression Attention deficit Anxiety Hypertension Surgical History Tubal ligation status History of left salpingo-oophorectomy History of episiotomy Hx laparoscopic cholecystectomy H/O wrist surgery Hx of breast reduction, elective Family History Father Depressed Family history of thyroid problem Stroke Mother High blood pressure Kidney problem Arthritis Social History Household Members: Family Housing: House Alcohol intake: current Alcohol intake frequency: holidays/special occasions only Alcohol type: wine and hard liquor Patient Tobacco Use Status: Never used Tobacco e-Cigarette/Vaping Use: Never Used Second Hand Smoke Exposure: Yes service: No Current occupational status: employed Current occupational exposures/hazards: No Cognitive needs: No Hearing needs: No Vision needs: Yes Questionnaire Thrive Questionnaire Date Thrive assessed: 06/05/22 DANII-7 AMB Questionnaire DANII-7 Date DANII - 7 assessed: 10/30/22 Source: Developed by Drs. Tray Sood, Safia Sy, Pardeep Egan and colleagues, with an educational elsie from [employer] Review of Systems Const All systems reviewed & are unremarkable except as noted in HPI and below Eyes Reports no additional complaints, Denies change in vision and Denies other visual disturbances Card Denies chest pain at rest, Denies chest pain with activity, Denies edema, Denies irregular heart rhythm, Denies claudication, Denies dyspnea, Denies dyspnea on exertion, Denies orthopnea, Denies paroxysmal nocturnal dyspnea and Denies slow heart rate Resp Denies cough, Denies dyspnea and Denies dyspnea on exertion GI Denies abdominal pain, Denies change in bowel habits, Denies excessive flatus, Denies nausea and Denies vomiting Denies urinary incontinence, Denies urinary hesitancy and Denies urinary urgency Musc Denies abnormal gait, Denies atrophy, Denies deformity and Denies limited range of motion Skin/Breast Denies bleeding lesions, Denies changing lesions and Denies rash Neuro Denies abnormal gait and Denies lack of coordination Physical exam (Primary Care) Vital Signs: Last Vital Signs Pulse 63 03/06/23 13:18 BP 140/90 H 03/06/23 13:18 Pulse Ox 99 03/06/23 13:18 Oxygen Delivery Method Room Air 03/06/23 13:18 BMI result Body Mass Index 27.3 Tobacco/Smoking Status: Tobacco use Status Tobacco use date assessed 10/30/22 03/06/23 13:20 Patient Tobacco Use Status Never used Tobacco 03/06/23 13:20 e-Cigarette/Vaping Use Never Used 03/06/23 13:20 Thrive Assessment: Date of Thrive Assessment Date Thrive assessed 06/05/22 03/06/23 13:20 Eyes General: appearance normal, both eyes and all related structures Eyelids: Yes eyelids normal Conjunctivae: conjunctivae normal Neck Neck: Yes normal visual inspection and Yes supple Resp Effort & Inspection: normal respiratory effort Auscultation: clear to auscultation bilaterally Cardio Jugular venous distension: no JVD Rate: regular rate Rhythm: regular rhythm Heart sounds: S1 normal heart sound present and S2 normal heart sound present Extrem General: Yes full ROM Office Procedures Flu Questionnaire Does the patient have a severe egg allergy?: No Does the patient have severe life threatening allergies?: No Does the patient have a fever or illness today?: No Has the patient ever had Guillain-Sayner Syndrome?: No Has the patient ever had any past reaction to a flu shot?: Yes Immunizations flu vacc [id number] 6mos up(PF) 60 mcg(15 mcgx4)/0.5 mL IM syringe Performing Provider: Adela Lopez MD [facility] [place] [facility] Documented (not given) by: BRITTANY Irving on 03/06/23 13:26 Reason Not Given: Patient Refused Assessment and Plan Assessment & Plan (1) Mild recurrent major depression: Code(s): F33.0 - Major depressive disorder, recurrent, mild Plan: Continue bupropion. (2) Von Willebrand disease: Code(s): D68.0 - Von Willebrand disease Plan: Avoid aspirin. (3) Crushing injury of right ring finger: Code(s): S67.194A - Crushing injury of right ring finger, initial encounter Plan: X-ray ordered. (4) Essential hypertension: Code(s): I10 - Essential (primary) hypertension Plan: Continue amlodipine. Blood pressure goal is equal or less than 130/80. Recheck blood pressure with nurse navigator in 3 weeks. Orders: Orders Influenza [id number] Immunization Today Z23 - Encounter for immunization XR hand RT 2V Today M79.641 - Pain in right hand Referrals Pain Management Referral M54.50 - Low back pain, unspecified Coding Level of Care Code Est Pt Level 4 (94377) Diagnoses Mild recurrent major depression F33.0 Von Willebrand disease D68.0 Crushing injury of right ring finger S67.194A Essential hypertension I10 Time Spent (min) 22
== END 2023-03-06 13:39 | disposition home or self-care (01) ==
PROVIDERS: PCP Internal Medicine; Visit Provider Internal Medicine
DX: F33.0 Major depressive disorder, recurrent, mild (principal); D68.00 Von Willebrand disease, unspecified; S67.194A Crushing injury of right ring finger, initial encounter; I10 Essential (primary) hypertension
CPT/HCPCS: 99214

== ENCOUNTER 2023-03-06 13:47 | Outpatient (REF) | payer MEDICARE, MEDICAID, SELFPAY ==
--- NOTE | ~2023-03-06 | XR_ITS ---
EXAMINATION: XR HAND, RIGHT CLINICAL INFORMATION: Pain in the right hand, attention to fourth finger COMPARISON: None available. TECHNIQUE: PA, lateral, and oblique views of the right hand. FINDINGS: The bones and soft tissues are normal. No fracture. Alignment is anatomic. Joint spaces are maintained. No erosions or soft tissue calcifications. XR/XR hand RT 2V IMPRESSION: Normal right hand.
== END 2023-03-06 13:48 | disposition home or self-care (01) ==
LOC: HO.XRAY 13:47
PROVIDERS: PCP Internal Medicine; Visit Provider Internal Medicine
DX: M79.641 Pain in right hand (principal)
CPT/HCPCS: 73120

== ENCOUNTER 2023-04-16 14:56 | Outpatient (AMB) | payer MEDICARE, MEDICAID, SELFPAY ==
--- NOTE | 2023-04-16 14:58 | MHC.OFFVIS ---
Intake Vital Signs 04/16/23 14:59 Height 5 ft 4 in Weight 161 lb BMI 27.6 Blood Pressure Location Lt brachial Position Sitting Respiration 12 Pulse 73 Pulse Source Pulse Oximeter Pulse Oximetry (%) 99 Oxygen Delivery Method Room Air Intake Visit Reasons: Low Back Pain, Unspecified/Confirmed Allergies ciprofloxacin [From CIPRO] Allergy (Intermediate, Verified 04/16/23 15:01) RASH penicillin G [Penicillin G] Allergy (Mild, Verified 04/16/23 15:01) RASH Sulfa (Sulfonamide Antibiotics) [Sulfa (Sulfonamides)] Allergy (Mild, Verified 04/16/23 15:01) RASH aspirin [Aspirin] Adverse Reaction (Mild, Verified 04/16/23 15:01) BLEEDING Medication List - Last Reconciled 04/16/23 by Carmita Oropeza LPN amlodipine 2.5 mg PO DAILY 90 days ascorbic acid (vitamin C) (Vitamin C) 500 mg PO DAILY betamethasone dipropionate 0.05% topical bupropion HCl (Wellbutrin XL) 300 mg PO QAM cetirizine (Zyrtec) 10 mg PO DAILY PRN cholecalciferol (vitamin D3) 25 mcg PO DAILY cholestyramine (with sugar) 4 gram (Questran) 4 grams PO BID PRN 30 days clonazepam 2 mg PO BID dextroamphetamine-amphetamine 10 mg (Adderall) 10 mg PO DAILY diphenhydramine HCl (Benadryl) 25 mg PO TID PRN duloxetine 30 mg PO DAILY metoprolol succinate ER 50 mg PO DAILY 90 days polyethylene glycol 3350 (Miralax) 17 grams PO DAILY zinc 50 mg PO DAILY zolpidem (Ambien) 10 mg PO BEDTIME PRN HPI Low Back Pain, Unspecified/Confirmed HPI Details 57-year-old female who presents today to the office for an evaluation of low back pain. A certified tour driver was present during the visit. She reports lower back pain that radiates down to the right leg. She has not done any physical therapy in the past for back pain. She denies any recent injury or trauma. She declined going to the physical therapy as it aggravated her pain in the past. She has difficulty getting up from sitting position. She also reports right upper back pain that radiates around her upper torso. She denies any history of a dermatomal rash or eruption. She did have an episode of generalized eruption earlier this year some of which was located on her torso. She visited the ER and the rash resolved after a dose of Benadryl. [facility] Medical History Diarrhea following gastrointestinal surgery Discoid lupus Foot callus Essential hypertension Joint pain Thoracic spine pain Breast pain, left Physical exam Diarrhea Screen for colon cancer Mild recurrent major depression DANII (generalized anxiety disorder) IBS (irritable bowel syndrome) Hordeolum externum left upper eyelid Right elbow pain Cholecystectomy planned Insomnia Depression Attention deficit Anxiety Hypertension Surgical History Tubal ligation status History of left salpingo-oophorectomy History of episiotomy Hx laparoscopic cholecystectomy H/O wrist surgery Hx of breast reduction, elective Family History Father Depressed Family history of thyroid problem Stroke Mother High blood pressure Kidney problem Arthritis Social History Household Members: Family Housing: House Alcohol intake: current Alcohol intake frequency: holidays/special occasions only Alcohol type: wine and hard liquor Patient Tobacco Use Status: Never used Tobacco e-Cigarette/Vaping Use: Never Used Second Hand Smoke Exposure: Yes service: No Current occupational status: employed Current occupational exposures/hazards: No Cognitive needs: No Hearing needs: No Vision needs: Yes Review of Systems Const All systems reviewed & are unremarkable except as noted in HPI and below Physical Exam Vital Signs: Last Vital Signs Pulse 73 04/16/23 14:59 Resp 12 04/16/23 14:59 Pulse Ox 99 04/16/23 14:59 Oxygen Delivery Method Room Air 04/16/23 14:59 BMI result Body Mass Index 27.6 General: Appears afebrile. Alert and oriented. Mood and affect appropriate. Follows and participates in conversation appropriately. Respiratory effort is unlabored. Able to transition from sit to stand unassisted. Ambulates with bilaterally normal heel strike and toe off. Tenderness in the distribution of right T8-9 intercostal nerves. No visible skin lesions or rashes. Results Reviewed Results Reviewed: No imaging is available for review. Assessment & Plan Assessment & Plan (1) Intercostal neuralgia: Code(s): G58.8 - Other specified mononeuropathies (2) Low back pain: Code(s): M54.50 - Low back pain, unspecified Plan Will schedule her for a right T8-T9-T10 intercostal nerve blocks. Discussed the risks and benefits of the procedure with the patient in detail. All questions were answered. The patient is on board with the plan. Justification for interventional therapy: ? Patient with average pain > 6/10 ? Patient has exhausted conservative therapy I ordered an MRI of the lumbar spine for low back pain radiating into the right lower extremity. She has previously done physical therapy without any benefit. She is not interested in physical therapy because it exacerbates her pain. Scribed for Dr. Braxton by Chad Andrade, medical field representative, on 04/16/2023. I, Dr. Braxton, have personally reviewed and agree with the information entered by the scribe. Orders: Orders MR lumbar spine wo con 04/16/23 M54.41 - Lumbago with sciatica, right side Coding Level of Care Code New Pt Level 4 (05269) Diagnoses Intercostal neuralgia G58.8 Low back pain M54.50
[2023-04-16 14:59] VITALS: PULSE 73; RESP 12; O2SAT 99; BMI 27.6
== END 2023-04-16 15:22 | disposition home or self-care (01) ==
PROVIDERS: PCP Internal Medicine; Visit Provider Internal Medicine
DX: G58.8 Other specified mononeuropathies (principal); M54.50 Low back pain, unspecified
CPT/HCPCS: 99214

== ENCOUNTER → 2023-04-16 14:56 | Outpatient (BNVA) | payer MEDICARE, MEDICAID, SELFPAY | PROVIDERS: PCP Internal Medicine; Visit Provider Internal Medicine | DX: M54.41 Lumbago with sciatica, right side (principal); G58.8 Other specified mononeuropathies | CPT/HCPCS: 99212 ==

== ENCOUNTER 2023-04-20 10:35 | Outpatient (AMB) | payer MEDICARE, MEDICAID, SELFPAY ==
[2023-04-20 10:44] VITALS: BP 138/73; PULSE 73; RESP 12; O2SAT 100
--- NOTE | 2023-04-20 10:44 | MHC.OFFVIS ---
Intake Vital Signs 04/20/23 10:44 Height 5 ft 4 in BP 138/73 Blood Pressure Location Lt brachial Position Sitting Respiration 12 Pulse 73 Pulse Source Pulse Oximeter Pulse Oximetry (%) 100 Oxygen Delivery Method Room Air Intake Visit Reasons: Right intercostal nerve block Allergies ciprofloxacin [From CIPRO] Allergy (Intermediate, Verified 04/24/23 12:46) RASH penicillin G [Penicillin G] Allergy (Mild, Verified 04/24/23 12:46) RASH Sulfa (Sulfonamide Antibiotics) [Sulfa (Sulfonamides)] Allergy (Mild, Verified 04/24/23 12:46) RASH aspirin [Aspirin] Adverse Reaction (Mild, Verified 04/24/23 12:46) BLEEDING Medication List - Last Reconciled 04/20/23 by Carmita Oropeza LPN amlodipine 2.5 mg PO DAILY 90 days ascorbic acid (vitamin C) (Vitamin C) 500 mg PO DAILY betamethasone dipropionate 0.05% topical bupropion HCl (Wellbutrin XL) 300 mg PO QAM cetirizine (Zyrtec) 10 mg PO DAILY PRN cholecalciferol (vitamin D3) 25 mcg PO DAILY cholestyramine (with sugar) 4 gram (Questran) 4 grams PO BID PRN 30 days clonazepam 2 mg PO BID dextroamphetamine-amphetamine 10 mg (Adderall) 10 mg PO DAILY diphenhydramine HCl (Benadryl) 25 mg PO TID PRN duloxetine 30 mg PO DAILY metoprolol succinate ER 50 mg PO DAILY 90 days polyethylene glycol 3350 (Miralax) 17 grams PO DAILY zinc 50 mg PO DAILY zolpidem (Ambien) 10 mg PO BEDTIME PRN HPI Right intercostal nerve block HPI Details Patient presents for scheduled procedure. Denies any recent cough, cold, infection, fever or other significant changes in medical history since last office visit. [facility] Medical History (Updated 04/24/23 @ 14:54 by GARCIA Quevedo) Trochanteric bursitis, right hip Elbow pain, left Polyarthralgia Diarrhea following gastrointestinal surgery Discoid lupus Foot callus Essential hypertension Joint pain Thoracic spine pain Breast pain, left Physical exam Diarrhea Screen for colon cancer Mild recurrent major depression DANII (generalized anxiety disorder) IBS (irritable bowel syndrome) Hordeolum externum left upper eyelid Right elbow pain Cholecystectomy planned Insomnia Depression Attention deficit Anxiety Hypertension Surgical History Tubal ligation status History of left salpingo-oophorectomy History of episiotomy Hx laparoscopic cholecystectomy H/O wrist surgery Hx of breast reduction, elective Family History Father Depressed Family history of thyroid problem Stroke Mother High blood pressure Kidney problem Arthritis Social History Household Members: Family Housing: House Alcohol intake: current Alcohol intake frequency: holidays/special occasions only Alcohol type: wine and hard liquor Patient Tobacco Use Status: Never used Tobacco e-Cigarette/Vaping Use: Never Used Second Hand Smoke Exposure: Yes service: No Current occupational status: employed Current occupational exposures/hazards: No Cognitive needs: No Hearing needs: No Vision needs: Yes Review of Systems Const All systems reviewed & are unremarkable except as noted in HPI and below Physical Exam Vital Signs: Last Vital Signs Pulse 73 04/20/23 10:44 Resp 12 04/20/23 10:44 BP 138/73 04/20/23 10:44 Pulse Ox 100 04/20/23 10:44 Oxygen Delivery Method Room Air 04/20/23 10:44 General: Appears afebrile. Alert and oriented. Mood and affect appropriate. Follows and participates in conversation appropriately. Respiratory effort is unlabored. Able to transition from sit to stand unassisted. Ambulates with bilaterally normal heel strike and toe off. Office Procedures Nerve Block Details: Right intercostal nerve block T9-T10, ultrasound guided After obtaining written consent, pre-procedure time-out was completed. The patient was placed in a left lateral position. The relevant levels of the intercostal nerves were physically palpated corresponding to the patient's pain and marked. Using ultrasound, the appropriate landmarks including the rib, intercostal muscles and pleura were identified. The skin was anesthetized with 1% lidocaine. A 21-gauge 80 mm echostim needle was advanced under sonographic guidance in proximity to each of the intercostal nerves. Aspiration was negative for heme and air. 2 cc of ropivacaine 0.5% mixed with 10 mg Kenalog was injected around each of the targeted nerves. The needle was removed, skin cleansed and a sterile bandage was applied. The patient tolerated the procedure well and no complications were encountered. Following the procedure, the patient's vital signs and respiration were stable. The patient was discharged home in good condition with post-procedural instructions. Time Out: Immediately prior to the procedure, the following was verbally confirmed that there is a signed consent form and that the correct patient, planned procedure, site and side are consistent with documentation and that necessary equipment and/or blood products are available prior to the start of the case. Complications: none EBL: <1 cc Note: An ultrasound image of the injection was taken and stored in the permanent record. Procedure code (CPT) selection complete Results Reviewed Results Reviewed: No imaging is available for review. Assessment & Plan Assessment & Plan (1) Intercostal neuralgia: Code(s): G58.8 - Other specified mononeuropathies Plan Patient is status post right intercostal nerve block, ultrasound guided. Patient tolerated procedure well and was discharged home in stable condition with discharge instructions. All questions were answered. We will via telephone or in clinic to assess response to therapy. A follow-up appointment was made during today's visit. Scribed for Dr. Braxton by Chad Andrade, ophthalmic medical assistant, on 04/20/2023. I, Dr. Braxton, have personally reviewed and agree with the information entered by the scribe. Coding Level of Care Code Procedure Only Diagnoses Intercostal neuralgia G58.8
== END 2023-04-20 11:06 | disposition home or self-care (01) ==
PROVIDERS: PCP Internal Medicine; Visit Provider Internal Medicine
DX: G58.8 Other specified mononeuropathies (principal)
CPT/HCPCS: 64420; 76942

== ENCOUNTER → 2023-04-20 10:35 | Outpatient (BNVA) | payer MEDICARE, MEDICAID, SELFPAY | PROVIDERS: PCP Internal Medicine; Visit Provider Internal Medicine | DX: G58.8 Other specified mononeuropathies (principal) | CPT/HCPCS: 64420; J0665; J3301 ==

== ENCOUNTER 2023-04-24 12:23 | Outpatient (AMB) | payer MEDICARE, MEDICAID, SELFPAY ==
--- NOTE | 2023-04-24 12:39 | MHC.OFFVIS ---
Intake Vital Signs 04/24/23 12:42 Height 5 ft 4 in Weight 157 lb 10.088 oz BMI 27.1 BP 120/60 Blood Pressure Location Rt brachial Position Sitting Pulse 66 Pulse Source Pulse Oximeter Temp 97.5 F Temp Source Skin Pulse Oximetry (%) 98 Oxygen Delivery Method Room Air Intake Visit Reasons: Hand pain Intake Note: Patient referred back to us for hand pain. Last seen by Jeis October,. c/o left elbow pain. Seen by Pain Management on Sunday. Event Designer Required: No Accompanied by: Self / Same As Patient Allergies ciprofloxacin [From CIPRO] Allergy (Intermediate, Verified 04/24/23 12:46) RASH penicillin G [Penicillin G] Allergy (Mild, Verified 04/24/23 12:46) RASH Sulfa (Sulfonamide Antibiotics) [Sulfa (Sulfonamides)] Allergy (Mild, Verified 04/24/23 12:46) RASH aspirin [Aspirin] Adverse Reaction (Mild, Verified 04/24/23 12:46) BLEEDING HPI HPI Comments History of Present Illness Details Mrs. Cooney, a 56-year-old female presents for follow-up for polyarthralgia, last seen in October 2021. The patient has discoid lupus erythematous, followed by [facility] dermatology and receives (Intralesional Kenalog) ILK injection as recent as 1 month ago. Today she has complaints of right hand pain, right hip/buttockc pain and left elbow tenderness. She reports that the right hand has been hurting since she reached for a cup, jammed the finger on the cup and and hyperflexed the right index finger finger backwards. She states that the swelling has since gone down but it bothers her to grasp and hold items. The hip pain starts at her right SI joint and radiates across and down the right buttocks to the proximal quadriceps. She has had injections to her right SI joint some years ago. She also recently developed pain to her right flank area that radiates across her right abdomen down to the groin. Pain management administered a steroid injection to the right flank midthoracic region. The left elbow pain is about 2 months and she uses topical Aspercreme without half-way effectiveness. She states she cannot use NSAIDs and aspirin because she has a history of von Willebrand's. Prior Visit Patient follows with [facility] dermatology (last visit 10/03/2021) for discoid lupus erythematous, biopsy proven in 2016,now with reported progressing arthralgias. She is prescribed betamethasone lotion to use on areas of itch on her scalp twice a day. She also receives ILK injections of the scalp. Consult was made to rheumatology given patient's worsening arthralgias. Dermatology has discussed option of oral medication Plaquenil, patient remains uninterested in trying systemic treatments. She reports itching over the left and right auricular scalp and occipital scalp with some hair loss in these areas. Patient reports that she has fibromyalgia. She feels that her depression is not well controlled on her current medications. She reports that her sleep is disrupted and that she takes her daily medications at 2am. She states that she tries to exercise but has difficulty due to her pain. Pain is head to toe, she has skin sensitivity as well. She admits to swelling and stiffness in her hands. She reports that stiffness is worse in the morning and lasts about an hour. Swelling is worse in the morning and resolves throughout the day. Her pain is worse with use. She admits to swelling in her lower extremities and feet. She follows with Pain Management for low back and right buttock pain. Per pain management notes the plan is to start the process of diagnostic injections to identify her pain source better with most likely source being lumbar spondylosis on the right, they will start with lumbar L3, L4, L5 medial branch blocks. Patient reports she plans on moving forward with this procedure. She admits to blurred vision and follows with the shuttle hand, she states she was diagnosed with cataracts. She admits to dryness of her eyes for which she uses [id number] drops, and eye itching due to seasonal allergies. She admits to nosebleeds, bleeding gums, and easy bruising due to von Willebrand's hemophilia. She admits to intermittent headaches and balance issues. She reports being able to feel a rapid heartbeat usually accompanied by anxiety. She has an EKG she will complete today ordered by her PCP. She also states that her blood pressure has been elevated recently. She is taking her beta-joselyn as prescribed. BP stable in clinic today. She follows with GI for irritable bowel syndrome, consisting of persistent diarrhea and constipation. She denies skin sensitivity other then getting burn like rash on her arms and neck in strong sun. She admits to excessive worries, anxiety, easily losing temper, depression, anxiety, agitation, sleep disruption and trouble falling asleep. 10/2021 Visit: Assessment: Patient with history of discoid lupus lesions on her scalp followed by Dermatology, referred to rheumatology for increasing polyarthralgia. Recent serology with negative LUIS DANIEL, rheumatoid factor, CCP, anti DNA, anti LEENA. No oral ulcers noted. No inflammatory skin lesions noted. Afebrile. Patient with increased depression that she does not feel is well controlled with her duloxetine and bupropion. Also with sleep disturbance. Based on patient's history/ physical and negative serology, it appears that patient's fibromyalgia and possibly osteoarthritis are likely contributing to her pain symptoms. No signs of systemic involvement of lupus other than skin disease on her scalp at this time. Overall her discoid lupus on her scalp appears to be well controlled. Her graphic arts instructor had talked to her about starting Plaquenil, this was reviewed again in the visit today. Patient expressed that she is not interested in oral medication treat her symptoms. Will check inflammatory markers, as no recent values are available. Recommend patient follow-up with rheumatology as needed. Continue follow-up with Dermatology, and with PCP and mental health team to address depression and further management of fibromyalgia. Note:Most recent serology for immunology 09/2021 [facility] Medical History (Updated 04/24/23 @ 14:54 by ALLEGRA Quevedo) Trochanteric bursitis, right hip Elbow pain, left Polyarthralgia Diarrhea following gastrointestinal surgery Discoid lupus Foot callus Essential hypertension Joint pain Thoracic spine pain Breast pain, left Physical exam Diarrhea Screen for colon cancer Mild recurrent major depression DANII (generalized anxiety disorder) IBS (irritable bowel syndrome) Hordeolum externum left upper eyelid Right elbow pain Cholecystectomy planned Insomnia Depression Attention deficit Anxiety Hypertension Surgical History Tubal ligation status History of left salpingo-oophorectomy History of episiotomy Hx laparoscopic cholecystectomy H/O wrist surgery Hx of breast reduction, elective Family History Father Depressed Family history of thyroid problem Stroke Mother High blood pressure Kidney problem Arthritis Social History Household Members: Family Housing: House Alcohol intake: current Alcohol intake frequency: holidays/special occasions only Alcohol type: wine and hard liquor Patient Tobacco Use Status: Never used Tobacco e-Cigarette/Vaping Use: Never Used Second Hand Smoke Exposure: Yes service: No Current occupational status: employed Current occupational exposures/hazards: No Cognitive needs: No Hearing needs: No Vision needs: Yes Physical Exam Vital Signs: Last Vital Signs Temp 97.5 F 04/24/23 12:42 Pulse 66 04/24/23 12:42 BP 120/60 04/24/23 12:42 Pulse Ox 98 04/24/23 12:42 Oxygen Delivery Method Room Air 04/24/23 12:42 BMI result Body Mass Index 27.1 APPEARANCE: Patient in no acute distress EYES no redness, pupils equal and reactive to light, eyelids normal EARS:? External ear normal, canal clear and tympanic membrane normal. NOSE/SINUS:? Airflow through both nares, no nasal discharge, no bleeding THROAT:? Oral mucosa moist, no ulcerations NECK:? No thyromegaly or masses, no adenopathy, trachea midline. HEART:? Regulrar rhythm, S1-S2 heard, no murmurs, rubs or gallops. LUNG:? Clear to percussion and auscultation ABD:? Normal bowel sounds, no organomegaly, masses or tenderness. EXTREMITIES:? No edema, no calf tenderness, normal peripheral pulses. NEURO:? Oriented and alert x3.? No focal weakness.? Reflexes symmetric.? Walks with a mild limp SKIN:? There are no skin lesions evident. No objective signs of Raynaud's phenomenon. JOINT EXAM: Cervical Spine:.? Full range of motion without pain; no tenderness. Thoracic Spine:.? levocurvature per 03/2022 x-ray.? Mild paraspinal tenderness on palpation more to right flank region /injection site. Lumbar Spine/SI:.?Per 03/2022 Xray mild scoliosis convex right apex at L2.? Decreased range of motion with pain, marked tenderness right SI joint, buttocks Hands:.? Normal pain-free range of motion without tenderness, swelling, increased warmth or erythema. Able to make a full fist and has a good signs and displays salesperson strength with mild discomfort to right hand Wrists:.? Normal pain-free range of motion without tenderness, swelling, increased warmth or erythema. Elbows:. Normal range of motion with pain to left. No increased warmth or erythema. Mild swelling and tenderness to left lateral elbow. Shoulders:.?? Full range of motion without pain. No tenderness, weakness, swelling, increased warmth or erythema. Hips:.? Full range of motion without pain. Hip bursa:.? Right tenderness. Knees:.?? Normal pain-free range of motion without tenderness, swelling, increased warmth or erythema.? There is no effusion or crepitation Ankles:.? Normal pain-free range of motion without tenderness, swelling, increased warmth or erythema. Feet:.? Normal pain-free range of motion without tenderness, swelling, increased warmth or erythema. Tender points:? No tenderness to digital palpation at the occiput, trapezius, second rib, right lateral epicondyle, knees, and left gluteal area. ? Office Procedures Joint Injection/Drain Joint Injection/Drain Primary Site: other Prep: site was prepped using aseptic technique and injection warnings given Injected: 80 mg of, Kenalog, with 1 mL of and 1% plain lidocaine Approach Used: posterolateral Procedure: The patient tolerated the procedure well Coding - Glenohumeral/Tronchanteric Bursa/Intraarticular Procedure code (CPT) selection complete Results Reviewed Results Reviewed: 03/06/2023 right hand x-ray FINDINGS: The bones and soft tissues are normal. No fracture. Alignment is anatomic. Joint spaces are maintained. No erosions or soft tissue calcifications. XR/XR hand RT 2V IMPRESSION: Normal right hand. 04/11/2022 lumbar x-ray FINDINGS: Degenerative changes are noted here. Loss of disc height and several areas of mild spurring. Degeneration of the posterior elements from L4-L5 and L5-S1 and also degeneration at L3-L4. There is no convincing evidence for an acute compression injury here. There is persistent mild scoliosis convex right apex at L2. Some degeneration of the SI joints is noted. No listhesis XR/XR lumbar spine 2-3V IMPRESSION: Once again degenerative changes are seen. These are mildly ongoing from 2019. These appear moderate. No acute finding. If further evaluation is warranted recommend MR. 11/08/2021 thoracic spine x-ray FINDINGS: There is borderline levocurvature thoracolumbar spine with mild thoracic kyphosis. There is no interval thoracic vertebral compression, spondylolisthesis, destructive process, or paraspinal soft tissue swelling. Again, there are multilevel degenerative disc changes with mild thoracic disc narrowing and vertebral spurring. XR/XR thoracic spine 2V IMPRESSION: -Multilevel degenerative disc changes lower mid to lower thoracic spine. -No vertebral compression, spondylolisthesis, or destructive process. Laboratory Tests 10/12/21 12:01 Rheumatoid Factor < 15.0 Cycl Citrul Peptide IgG <16 LUIS DANIEL Screen NEGATIVE SS-A/Ro Antibody <1.0 NEG SS-B/La Antibody <1.0 NEG Double Strand DNA Ab <1 Assessment & Plan Assessment & Plan (1) Trochanteric bursitis, right hip: Code(s): M70.61 - Trochanteric bursitis, right hip (2) Elbow pain, left: Code(s): M25.522 - Pain in left elbow (3) Lumbar spondylosis: Code(s): M47.816 - Spondylosis without myelopathy or radiculopathy, lumbar region (4) Elevated alkaline phosphatase level: Code(s): R74.8 - Abnormal levels of other serum enzymes Plan Miss Cooney returned for evaluation of polyarthralgia. She was first seen in October 2021 and recommended to follow-up as needed. Today she presents with: #Right trochanteric bursitis: There is tenderness to palpation of right SI joint, right hip, right glute. The right hip area seem to be more impacting so I think it is reasonable to give her a cortisone injection for the bursitis. #Left elbow pain/Tendinitis: There is to her left lateral elbow with mild swelling. She is able to move it with full range of motion, except to fully extend her hands over her head. That is more a restriction related to right thoracic/flank pain for which she received an intercostal injection from pain management. Patient denies overuse and cannot relate any event that may account for her elbow pain. This seemed to me as elbow tendinitis. I will obtain x-ray to rule out fractures. I recommend patient continue to use Aspercreme and I also demonstrated elbow exercises that may help. She refused physical therapy stating that it will make it worse and physical therapy never helped before whenever she has done it in the past. I recommend to patient that if it is not improved at next visit, we can consider steroid injection. 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 Patient has received right SI joint injections a few years ago. She said that was therapeutic for few months. She should continue to follow-up with pain management. Tendinitis, lumbar/lower back pain and sacroiliitis can be features of spondyloarthropathy. She denies other features of AxSpA to include but not limited to uveitis, dactylitis, Achilles tendonitis and plantar fasciitis. The patient has a diagnosis of IBS. I will obtain updated ESR, CRP, and continue to monitor #elevated alkaline phosphatase: I reviewed available lab results dating back to 2019. The alk-phos has been trending upwards with earliest value 163 in 2019 to 180 in 2021. I will obtain updated CMP (last 03/2022). If it continues to trend up or remains elevated, I will do additional workup for bone alkaline phosphatase. I suspect bone metabolism may be the underlying cause given that her liver enzymes has been routinely within normal limits. Return to clinic 2 months Orders: Orders Erythrocyte Sedimentation Rate Today M25.50 - Pain in unspecified joint C Reactive Protein Today M25.50 - Pain in unspecified joint Complete Blood Count Auto Diff Today M25.50 - Pain in unspecified joint XR elbow LT min 3V Today M25.522 - Pain in left elbow Comprehensive Met. Panel Today M25.50 - Pain in unspecified joint HLA B27 Today M25.50 - Pain in unspecified joint AMB Joint Injection/Aspiration Today M70.61 - Trochanteric bursitis, right hip Coding Level of Care Code Est Pt Level 4 (08816) Diagnoses Trochanteric bursitis, right hip M70.61 Elbow pain, left M25.522 Lumbar spondylosis M47.816 Elevated alkaline phosphatase level R74.8 CPT Codes Coding - Joint 7: 12526 - Glenohumeral/Tronchanteric Bursa/Intraarticular ([id number])
[2023-04-24 12:42] VITALS: BP 120/60; PULSE 66; TEMP 36.4; O2SAT 98; BMI 27.1
== END 2023-04-24 13:52 | disposition home or self-care (01) ==
PROVIDERS: PCP Internal Medicine; Visit Provider Nurse Practitioner Family
DX: M70.61 Trochanteric bursitis, right hip (principal); M25.522 Pain in left elbow; M47.816 Spondylosis without myelopathy or radiculopathy, lumbar region; R74.8 Abnormal levels of other serum enzymes
CPT/HCPCS: 20610; 99214

== ENCOUNTER → 2023-04-24 12:23 | Outpatient (BNVA) | payer MEDICARE, MEDICAID, SELFPAY | PROVIDERS: PCP Internal Medicine; Visit Provider Nurse Practitioner Family | DX: M70.61 Trochanteric bursitis, right hip (principal); M25.522 Pain in left elbow; M47.816 Spondylosis without myelopathy or radiculopathy, lumbar region; R74.8 Abnormal levels of other serum enzymes | CPT/HCPCS: 20610; 99212 ==

== ENCOUNTER → 2023-05-04 10:52 | Outpatient (BNVA) | payer MEDICARE, MEDICAID, SELFPAY | PROVIDERS: PCP Internal Medicine; Visit Provider Internal Medicine | DX: M70.61 Trochanteric bursitis, right hip (principal); M54.16 Radiculopathy, lumbar region; M53.3 Sacrococcygeal disorders, not elsewhere classified; G58.8 Other specified mononeuropathies | CPT/HCPCS: 99212 ==

== ENCOUNTER 2023-05-04 10:53 | Outpatient (AMB) | payer MEDICARE, MEDICAID, SELFPAY ==
[2023-05-04 10:56] VITALS: BP 128/63; PULSE 69; RESP 12; O2SAT 99; BMI 26.9
--- NOTE | 2023-05-04 10:56 | A.OFFVIS_ITS ---
Intake Vital Signs 05/04/23 10:56 Height 5 ft 4 in Weight 157 lb BMI 26.9 BP 128/63 Blood Pressure Location Lt brachial Position Sitting Respiration 12 Pulse 69 Pulse Source Pulse Oximeter Pulse Oximetry (%) 99 Oxygen Delivery Method Room Air Intake Visit Reasons: FOLLOW UP AFTER INJ/SIJ DISCUSSION/LVM Allergies ciprofloxacin [From CIPRO] Allergy (Intermediate, Verified 05/04/23 10:57) RASH penicillin G [Penicillin G] Allergy (Mild, Verified 05/04/23 10:57) RASH Sulfa (Sulfonamide Antibiotics) [Sulfa (Sulfonamides)] Allergy (Mild, Verified 05/04/23 10:57) RASH aspirin [Aspirin] Adverse Reaction (Mild, Verified 05/04/23 10:57) BLEEDING Medication List - Last Reconciled 05/04/23 by Carmita Oropeza LPN aluminum chloride 20% (Drysol) topical BEDTIME amlodipine 2.5 mg PO DAILY 90 days ascorbic acid (vitamin C) (Vitamin C) 500 mg PO DAILY betamethasone dipropionate 0.05% topical bupropion HCl 150 mg PO QAM 90 days bupropion HCl (Wellbutrin XL) 300 mg PO QAM cetirizine (Zyrtec) 10 mg PO DAILY PRN cholecalciferol (vitamin D3) 25 mcg PO DAILY cholestyramine (with sugar) 4 gram (Questran) 4 grams PO BID PRN 30 days clonazepam 2 mg PO BID dextroamphetamine-amphetamine 10 mg (Adderall) 10 mg PO DAILY dicyclomine 20 mg PO QID diphenhydramine HCl (Benadryl) 25 mg PO TID PRN duloxetine 60 mg PO DAILY metoprolol succinate ER 50 mg PO DAILY 90 days polyethylene glycol 3350 (Miralax) 17 grams PO DAILY zinc 50 mg PO DAILY zolpidem (Ambien) 10 mg PO BEDTIME PRN HPI FOLLOW UP AFTER INJ/SIJ DISCUSSION/LVM HPI Details 57-year-old female who presents today to the office for a follow-up after injection. The patient reports 50% relief following the procedure. The patient currently reports worsening of the lower back pain radiating down her right leg as compared to the upper right back pain that she had prior to the injection. She still experiences right upper back pain when she lies down, and the area is tender when it is in touch with her bed, but otherwise she is able to do more, bend down, and raise her arm without many symptoms. She reports pain and burning sensations in her buttock region. She was previously diagnosed with bursitis. She has had sciatica-related pain for many years. She has tried physical therapy multiple times in the past, with minimal to no benefit. Past Procedures: 04/20/23: Right intercostal nerve block T9-T10, ultrasound guided: 50% relief. [facility] Medical History (Updated 05/08/23 @ 08:20 by Roman Braxton MD) Trochanteric bursitis, right hip Elbow pain, left Polyarthralgia Diarrhea following gastrointestinal surgery Discoid lupus Foot callus Essential hypertension Joint pain Thoracic spine pain Breast pain, left Physical exam Diarrhea Screen for colon cancer Mild recurrent major depression DANII (generalized anxiety disorder) IBS (irritable bowel syndrome) Hordeolum externum left upper eyelid Right elbow pain Cholecystectomy planned Insomnia Depression Attention deficit Anxiety Hypertension Surgical History Tubal ligation status History of left salpingo-oophorectomy History of episiotomy Hx laparoscopic cholecystectomy H/O wrist surgery Hx of breast reduction, elective Family History Father Depressed Family history of thyroid problem Stroke Mother High blood pressure Kidney problem Arthritis Social History Household Members: Family Housing: House Alcohol intake: current Alcohol intake frequency: holidays/special occasions only Alcohol type: wine and hard liquor Patient Tobacco Use Status: Never used Tobacco e-Cigarette/Vaping Use: Never Used Second Hand Smoke Exposure: Yes service: No Current occupational status: employed Current occupational exposures/hazards: No Cognitive needs: No Hearing needs: No Vision needs: Yes Review of Systems Const All systems reviewed & are unremarkable except as noted in HPI and below Physical Exam Vital Signs: Last Vital Signs Pulse 69 05/04/23 10:56 Resp 12 05/04/23 10:56 BP 128/63 05/04/23 10:56 Pulse Ox 99 05/04/23 10:56 Oxygen Delivery Method Room Air 05/04/23 10:56 BMI result Body Mass Index 26.9 General: Appears afebrile. Alert and oriented. Mood and affect appropriate. Follows and participates in conversation appropriately. Respiratory effort is unlabored. Able to transition from sit to stand unassisted. Ambulates with bilaterally normal heel strike and toe off. Straight leg raise is positive on the right. MICHAEL test is positive on right side. Thigh thrust is positive on the right. SIJ compression on the right is positive. Results Reviewed Results Reviewed: No imaging is available for review. Assessment & Plan Assessment & Plan (1) Trochanteric bursitis, right hip: Code(s): M70.61 - Trochanteric bursitis, right hip (2) Intercostal neuralgia: Code(s): G58.8 - Other specified mononeuropathies (3) Lumbar radiculopathy: Code(s): M54.16 - Radiculopathy, lumbar region (4) Sacroiliac joint dysfunction: Code(s): M53.3 - Sacrococcygeal disorders, not elsewhere classified Plan I ordered an MRI scan of the lumbar spine for further evaluation. The patient will follow up one week after the completion of the MRI scan for review. Once I have reviewed the MRI images and report, we can plan for potential interventional therapy in combination with physical therapy for longer-term relief. Her symptoms may be secondary to either lumbar radiculopathy or sacroiliac joint dysfunction. We will choose for further course of action following review of the MRI. Scribed for Dr. Braxton by Chad Andrade, clinical specialist medical device, on 05/04/2023. I, Dr. Braxton, have personally reviewed and agree with the information entered by the scribe. Coding Level of Care Code Est Pt Level 4 (40937) Diagnoses Trochanteric bursitis, right hip M70.61 Intercostal neuralgia G58.8 Lumbar radiculopathy M54.16 Sacroiliac joint dysfunction M53.3
== END 2023-05-04 11:09 | disposition home or self-care (01) ==
PROVIDERS: PCP Internal Medicine; Visit Provider Internal Medicine
DX: M70.61 Trochanteric bursitis, right hip (principal); M54.16 Radiculopathy, lumbar region; M53.3 Sacrococcygeal disorders, not elsewhere classified
CPT/HCPCS: 99213

== ENCOUNTER 2023-07-10 10:53 | Outpatient (REF) | payer MEDICARE, MEDICAID, SELFPAY ==
[2023-07-10 11:14] LABS: MANUAL DIFF FLAG NO
[2023-07-10 11:45] LABS: Basophils Absolute Auto 0.1 X10*3/uL (0.0-0.2); Basophils Percent Auto 1.4 % (0-2); Eosinophils Absolute Auto 0.2 X10*3/uL (0.0-0.4); Eosinophils Percent Auto 2.8 % (0-4); Hematocrit 44.1 % (37.0-47.0); Hemoglobin 14.2 g/dl (12.0-16.0); Imm Gran Abs Auto 0.04 X10*3/uL (0.00-0.03); Imm Gran Pct Auto 0.5 % (0.0-0.4); Lymphocytes Absolute Auto 2.9 X10*3/uL (1.2-4.9); Lymphocytes Percent Auto 33.1 % (20-40); Mean Corpuscular HGB Conc 32.2 g/dl (31.0-35.0); Mean Corpuscular Hemoglobin 28.1 pg (27.0-33.0); Mean Corpuscular Volume 87.2 fL (80.0-98.0); Mean Platelet Volume 11.7 fL (9.4-12.3); Monocytes Absolute Auto 0.7 X10*3/uL (0.1-1.2); Monocytes Percent Auto 7.6 % (2-11); Neutrophils Absolute Auto 4.8 x10*3/uL (2.0-8.3); Neutrophils Percent Auto 54.6 % (45-73); Platelet Count 256 X10*3/uL (160-400); Red Blood Count 5.06 X10*6/uL (4.20-5.50); Red Cell Distribution Width 13.4 % (11.0-16.0); White Blood Count 8.7 X10*3/uL (4.8-10.8)
[2023-07-10 12:14] LABS: Alanine Aminotransferase 12 U/L (0-31); Albumin Level 4.1 g/dL (3.5-5.0); Alkaline Phosphatase 133 U/L (39-117); Anion Gap 11 (12-20); Aspartate Amino Transferase 16 U/L (5-31); Bilirubin Total 0.3 mg/dL (0.0-1.0); Blood Urea Nitrogen 18 mg/dL (9-16); C Reactive Protein 0.43 mg/dL (< or = 0.50); Calcium 9.6 mg/dL (8.4-10.2); Carbon Dioxide 29 mmol/L (22-29); Chloride 108 mmol/L (96-108); Estimated Glomerular Filt Rate 60; Glucose Random 94 mg/dL (60-115); Potassium 4.7 mmol/L (3.3-5.1); Sodium 143 mmol/L (135-145); Total Protein 7.7 g/dL (6.5-8.0)
[2023-07-10 13:23] LABS: Erythrocyte Sedimentation Rate 31 MM/HR (0-20)
[2023-07-13 23:39] LABS: HLA B27 Negative (Negative)
== END 2023-07-10 10:54 | disposition home or self-care (01) ==
LOC: HO.LAB 10:53
PROVIDERS: Visit Provider Nurse Practitioner Family
DX: M25.50 Pain in unspecified joint (principal)
CPT/HCPCS: 36415; 80053; 85025; 85652; 86140; 86812

== ENCOUNTER 2023-07-24 14:17 | Outpatient (AMB) | payer MEDICARE, MEDICAID, SELFPAY ==
[2023-07-24 14:28] VITALS: BP 150/82; BMI 27.6
--- NOTE | 2023-07-24 14:28 | A.OFFPC_ITS ---
Vital Signs 07/24/23 14:28 Height 5 ft 4 in Weight 161 lb BMI 27.6 BP 150/82 H Blood Pressure Location Lt brachial Position Sitting Intake Visit Reasons: pe Intake Note: Patient here for a physical exam, c/o blood in stool Police Artist Required: No Accompanied by: Self / Same As Patient Allergies ciprofloxacin [From CIPRO] Allergy (Intermediate, Verified 07/24/23 14:45) RASH penicillin G [Penicillin G] Allergy (Mild, Verified 07/24/23 14:45) RASH Sulfa (Sulfonamide Antibiotics) [Sulfa (Sulfonamides)] Allergy (Mild, Verified 07/24/23 14:45) RASH aspirin [Aspirin] Adverse Reaction (Mild, Verified 07/24/23 14:45) BLEEDING Medication List - Last Reconciled 07/24/23 by Adela Lopez MD aluminum chloride 20% (Drysol) topical BEDTIME amlodipine 2.5 mg PO DAILY 90 days ascorbic acid (vitamin C) (Vitamin C) 500 mg PO DAILY betamethasone dipropionate 0.05% topical bupropion HCl (Wellbutrin XL) 300 mg PO QAM cetirizine (Zyrtec) 10 mg PO DAILY PRN cholecalciferol (vitamin D3) 25 mcg PO DAILY cholestyramine (with sugar) 4 gram (Questran) 4 grams PO BID PRN 30 days clonazepam 2 mg PO BID dextroamphetamine-amphetamine 10 mg (Adderall) 10 mg PO DAILY dicyclomine 20 mg PO QID duloxetine 60 mg PO DAILY metoprolol succinate ER 50 mg PO DAILY 90 days polyethylene glycol 3350 (Miralax) 17 grams PO DAILY zinc 50 mg PO DAILY zolpidem (Ambien) 10 mg PO BEDTIME PRN Tobacco use date assessed: 07/24/23 Dental Screening Dental Screen Date: 07/24/23 Did you have a dental visit in the last 12 months?: No Did you have a dental problem in the last 6 months where you did not have access to dental care?: No Was dental information given to patient?: Patient has dentist HPI HPI Comments History of Present Illness Details This is a 57-year-old female with mild recurrent major depression that comes for her physical exam. She follows with counseling and psychiatry. Last colonoscopy was 2021 and she complains fresh blood in stools. Her hemoglobin is normal. Labs were discussed. Last mammogram was 2021. Blood pressure elevated today and will be recheck in 3 weeks by nurse navigator. [facility] Medical History (Updated 07/24/23 @ 15:04 by Adela Lopez MD) Von Willebrand disease Trochanteric bursitis, right hip Elbow pain, left Polyarthralgia Diarrhea following gastrointestinal surgery Discoid lupus Foot callus Essential hypertension Joint pain Thoracic spine pain Breast pain, left Physical exam Diarrhea Screen for colon cancer Mild recurrent major depression DANII (generalized anxiety disorder) IBS (irritable bowel syndrome) Hordeolum externum left upper eyelid Right elbow pain Cholecystectomy planned Insomnia Depression Attention deficit Anxiety Hypertension Surgical History Tubal ligation status History of left salpingo-oophorectomy History of episiotomy Hx laparoscopic cholecystectomy H/O wrist surgery Hx of breast reduction, elective Family History Father Depressed Family history of thyroid problem Stroke Mother High blood pressure Kidney problem Arthritis Social History Household Members: Family Housing: House Alcohol intake: current Alcohol intake frequency: holidays/special occasions only Alcohol type: wine and hard liquor Patient Tobacco Use Status: Never used Tobacco e-Cigarette/Vaping Use: Never Used Second Hand Smoke Exposure: Yes service: No Current occupational status: employed Current occupational exposures/hazards: No Cognitive needs: No Hearing needs: No Vision needs: Yes Questionnaire PHQ-9 Over the last 2 weeks, how often have you been bothered by any of the following problems? 1. Little interest or pleasure in doing things: more than half the days 2. Feeling down, depressed, or hopeless: nearly every day 3. Trouble falling or staying asleep, or sleeping too much: nearly every day 4. Feeling tired or having little energy: nearly every day 5. Poor appetite or overeating: several days 6. Feeling bad about yourself - or that you are a failure or have let yourself or your family down: more than half the days 7. Trouble concentrating on things, such as reading the newspaper or watching television: several days 8. Moving or speaking so slowly that other people could have noticed. Or the opposite - being so fidgety or restless that you have been moving around a lot more than usual: several days 9. Thoughts that you would be better off or of hurting yourself in some way : not at all Total score: 16 Depression Screening Interpretation: Positive (no suicidal thoughts) Depression Screening Follow-up: Existing condition, In treatment and Community Mental Health Worker F/U Depression Screening Done: Yes 28466 - PHQ-9 Billing: Yes Source: Developed by Drs. Tray Sood, Safia Sy, Pardeep Egan and colleagues, with an educational elsie from [employer]. Thrive Questionnaire Date Thrive assessed: 07/24/23 I am a: Patient What is your living situation today?: I have a steady place to live Within the past 12 months, did the food you bought not last and you didn't have the money to get more?: Never true Within the past 12 months, did you worry whether your food would run out before you got money to buy more?: Never true Do you have trouble paying for medicines?: No Do you have trouble getting transportation to medical appointments?: No Do you have trouble paying your heating and electricity bill?: No Do you have trouble taking care of your child, family member or friend?: No Do you have trouble with day-to-day activities such as bathing, preparing meals, shopping, managing finances, etc.?: No Are you currently unemployed and looking for a job?: No Are you interested in more education?: No Please select the resources that you would like help with: None Currently or been in a relationship where the following occur: no concerns reported THRIVE Score: 0 AUDIT C Alcohol Use Questionnaire (AUDIT-C) 1. How often do you have a drink containing alcohol?: Monthly or less 2. How many drinks containing alcohol do you have on a typical day when you are drinking?: 1 or 2 3. How often do you have six or more drinks on one occasion?: Never Total Score: 1 Score Reviewed/Action Taken: No DANII-7 AMB Questionnaire DANII-7 Date DANII - 7 assessed: 07/24/23 Feeling nervous, anxious, or on edge: 3 = Nearly every day Not being able to stop or control worryin = Several days Worrying too much about different things: 3 = Nearly every day Trouble relaxin = Several days Being so restless that it is hard to sit still: 0 = Not at all Becoming easily annoyed or irritable: 3 = Nearly every day Feeling afraid as if something awful might happen: 1 = Several days Total DANII-7 score (0-4 normal; 5-9 mild; 10-14 moderate; 15-21 severe): 12 Source: Developed by Drs. Tray Sood, Safia Sy, Pardeep Egan and colleagues, with an educational elsie from [employer]. DANII-7 Assessment Billing DANII-7 Assessment Tool: DANII-7 Assessment 91597 Review of Systems Const All systems reviewed & are unremarkable except as noted in HPI and below Eyes Reports no additional complaints, Denies change in vision and Denies other visual disturbances Card Denies chest pain at rest, Denies chest pain with activity, Denies edema, Denies irregular heart rhythm, Denies claudication, Denies dyspnea, Denies dyspnea on exertion, Denies orthopnea, Denies paroxysmal nocturnal dyspnea and Denies slow heart rate Resp Denies cough, Denies dyspnea and Denies dyspnea on exertion GI Denies abdominal pain, Denies change in bowel habits, Denies excessive flatus, Denies nausea and Denies vomiting Denies urinary incontinence, Denies urinary hesitancy and Denies urinary urgency Musc Denies abnormal gait, Denies atrophy, Denies deformity and Denies limited range of motion Skin/Breast Denies bleeding lesions, Denies changing lesions and Denies rash Neuro Denies abnormal gait, Denies behavioral changes, Denies confusion and Denies lack of coordination Psych Denies behavioral changes, Denies confusion and Reports depression Physical exam (Primary Care) Vital Signs: Last Vital Signs BP 150/82 H 07/24/23 14:28 BMI result Body Mass Index 27.6 Tobacco/Smoking Status: Tobacco use Status Tobacco use date assessed 07/24/23 07/24/23 14:42 Patient Tobacco Use Status Never used Tobacco 07/24/23 14:42 e-Cigarette/Vaping Use Never Used 07/24/23 14:42 PHQ-9: PHQ-9 Score PHQ-9: Total score 16 07/24/23 14:42 Depression Screening Interpretation: Positive (no suicidal thoughts) Depression Screening Follow-up: Existing condition, In treatment and Community Mental Health Worker F/U Thrive Assessment: Date of Thrive Assessment Date Thrive assessed 07/24/23 07/24/23 14:42 Currently or been in a relationship where the following occur: no concerns reported Const General: No confusion Orientation/consciousness: patient oriented x3 and No confusion HENMT Head: Yes normal to inspection, Yes normocephalic and Yes atraumatic Ears: external ears normal General nose exam: Normal external nose present and No nasal discharge present Face and sinus: Yes sinuses nontender Mouth: lip normal Eyes General: appearance normal, both eyes and all related structures Eyelids: Yes eyelids normal Conjunctivae: conjunctivae normal Neck Neck: Yes normal visual inspection and Yes supple Resp Effort & Inspection: normal respiratory effort Auscultation: clear to auscultation bilaterally Cardio Jugular venous distension: no JVD Rate: regular rate Rhythm: regular rhythm Heart sounds: S1 normal heart sound present and S2 normal heart sound present GI Inspection: Yes normal to inspection Palpation (GI): Soft to palpation and nontender Auscultation: normal bowel sounds Skin General skin exam: no rashes or lesions noted Neuro General: patient oriented x3, no focal motor deficits and No confusion Extrem General: Yes full ROM Psych Affect: Sad affect present Assessment and Plan Assessment & Plan (1) Physical exam: Code(s): Z00.00 - Encounter for general adult medical examination without abnormal findings Plan: Repeat in a year. (2) Mild recurrent major depression: Code(s): F33.0 - Major depressive disorder, recurrent, mild Plan: Continue bupropion. Follow-up with psychiatry. Orders: Orders MM screening mammo BI Today Z12.31 - Encounter for screening mammogram for malignant neoplasm of breast Referrals Gastroenterology Referral K92.1 - Melena Coding Level of Care Code Est Pt Prev Care 40-64y(38600) Diagnoses Physical exam Z00.00 Mild recurrent major depression F33.0 Additional Codes DANII-7 Assessment Billing - DANII-7 Assessment Tool: DANII-7 Assessment 49535 ([id number]) Time Spent (min) 31
== END 2023-07-24 15:00 | disposition home or self-care (01) ==
PROVIDERS: PCP Internal Medicine; Visit Provider Internal Medicine
DX: Z00.00 Encounter for general adult medical examination without abnormal findings (principal); F33.0 Major depressive disorder, recurrent, mild
CPT/HCPCS: 99396

== ENCOUNTER 2023-08-27 12:53 | Outpatient (REF) | payer MEDICARE, MEDICAID, SELFPAY ==
--- NOTE | ~2023-08-27 | MM_ITS ---
EXAMINATION: MM SCREENING DIGITAL BREAST TOMOSYNTHESIS, BILATERAL CLINICAL INFORMATION: Screening. Asymptomatic. COMPARISON: Mammography: This study is compared with prior outside exams dating back to 2019. TECHNIQUE: Digital breast tomosynthesis is performed in both the craniocaudal and mediolateral oblique views along with computer-aided detection (CAD). Synthesized 2D images are generated from the tomosynthesis. FINDINGS: There are scattered areas of fibroglandular density (ACR BI-RADS breast composition Category b). There are no significant masses, abnormal calcifications, or other abnormalities. MM/MM tomosynthesis screening BI IMPRESSION: No mammographic evidence of malignancy. ASSESSMENT: BI-RADS BI-RADS 1 - Negative RECOMMENDATION: Routine annual mammography screening. 1 year F/U This examination should not preclude the clinical evaluation of a suspicious palpable abnormality. This patient's information was entered into a reminder system with a target due date for their next mammogram.
== END 2023-08-27 12:54 | disposition home or self-care (01) ==
LOC: HO.MAMMO 12:53
PROVIDERS: PCP Internal Medicine; Visit Provider Internal Medicine
DX: Z12.31 Encounter for screening mammogram for malignant neoplasm of breast (principal)
CPT/HCPCS: 77063; 77067

== ENCOUNTER → 2023-08-27 13:15 | Outpatient (BNV) | payer MEDICARE, MEDICAID, SELFPAY | PROVIDERS: PCP Internal Medicine; Visit Provider Radiology Diagnostic Radiology | DX: Z12.31 Encounter for screening mammogram for malignant neoplasm of breast (principal) | CPT/HCPCS: 77063; 77067 ==

== ENCOUNTER 2023-08-27 13:57 | Outpatient (AMB) | payer MEDICARE, MEDICAID, SELFPAY ==
--- NOTE | 2023-08-27 14:09 | MHC.OFFWIV ---
Intake Vital Signs 08/27/23 14:10 Height 5 ft 4 in Weight 164 lb 6 oz BMI 28.2 BP 130/72 Blood Pressure Location Rt brachial Position Sitting Pulse 89 Pulse Source Pulse Oximeter Temp 99 F Temp Source Oral Pulse Oximetry (%) 98 Oxygen Delivery Method Room Air Intake Visit Reasons: EP cough sinus congestion (lobby) Intake Note: Pt presents to the office today for c/o cough and sinus congestion that started about 5 days ago and she states it is getting worse. Patient Tobacco Use Status: Never used Tobacco Allergies ciprofloxacin [From CIPRO] Allergy (Intermediate, Verified 09/02/23 12:01) RASH penicillin G [Penicillin G] Allergy (Mild, Verified 09/02/23 12:01) RASH Sulfa (Sulfonamide Antibiotics) [Sulfa (Sulfonamides)] Allergy (Mild, Verified 09/02/23 12:01) RASH aspirin [Aspirin] Adverse Reaction (Mild, Verified 09/02/23 12:01) BLEEDING Medication List - Last Reconciled 09/02/23 by New Ramos MD albuterol sulfate 90 mcg/actuation (Ventolin HFA) 1 inh inhalation QID PRN aluminum chloride 20% (Drysol) topical BEDTIME amlodipine 2.5 mg PO DAILY 90 days ascorbic acid (vitamin C) (Vitamin C) 500 mg PO DAILY azithromycin (Zithromax) take 500 mg today (day 1), then 250 mg for 4 days (days 2-5) PO betamethasone dipropionate 0.05% topical bupropion HCl XL (Wellbutrin XL) 300 mg PO QAM cetirizine (Zyrtec) 10 mg PO DAILY PRN cholecalciferol (vitamin D3) 25 mcg PO DAILY cholestyramine (with sugar) 4 gram (Questran) 4 grams PO BID PRN 30 days clonazepam 2 mg PO BID dextroamphetamine-amphetamine 10 mg (Adderall) 10 mg PO DAILY dicyclomine 20 mg PO QID duloxetine 60 mg PO DAILY metoprolol succinate ER 50 mg PO DAILY 90 days polyethylene glycol 3350 (Miralax) 17 grams PO DAILY zinc 50 mg PO DAILY zolpidem (Ambien) 10 mg PO BEDTIME PRN HPI EP cough sinus congestion (lobby) HPI Details Patient presents for a sick visit. Reporting symptoms of sinus congestion, sore throat and difficulty swallowing. Low-grade fever. No family member is sick. No recent travel. Patient reports symptoms of malaise and fatigue. [facility] Medical History Von Willebrand disease Trochanteric bursitis, right hip Elbow pain, left Polyarthralgia Diarrhea following gastrointestinal surgery Discoid lupus Foot callus Essential hypertension Joint pain Thoracic spine pain Breast pain, left Physical exam Diarrhea Screen for colon cancer Mild recurrent major depression DANII (generalized anxiety disorder) IBS (irritable bowel syndrome) Hordeolum externum left upper eyelid Right elbow pain Cholecystectomy planned Insomnia Depression Attention deficit Anxiety Hypertension Surgical History Tubal ligation status History of left salpingo-oophorectomy History of episiotomy Hx laparoscopic cholecystectomy H/O wrist surgery Hx of breast reduction, elective Family History Father Depressed Family history of thyroid problem Stroke Mother High blood pressure Kidney problem Arthritis Social History Household Members: Family Housing: House Alcohol intake: current Alcohol intake frequency: holidays/special occasions only Alcohol type: wine and hard liquor Patient Tobacco Use Status: Never used Tobacco e-Cigarette/Vaping Use: Never Used Second Hand Smoke Exposure: Yes service: No Current occupational status: employed Current occupational exposures/hazards: No Cognitive needs: No Hearing needs: No Vision needs: Yes Physical Exam Vital Signs: Last Vital Signs Temp 99 F 08/27/23 14:10 Pulse 89 08/27/23 14:10 BP 130/72 08/27/23 14:10 Pulse Ox 98 08/27/23 14:10 Oxygen Delivery Method Room Air 08/27/23 14:10 BMI result Body Mass Index 28.2 Const General: cooperative and healthy appearing Nutritional Appearance: well nourished Orientation/consciousness: patient oriented x3 Limitations: no limitations HEENT Head: Yes normal to inspection Eyes General: appearance normal, both eyes and all related structures Neck Neck: Yes normal visual inspection Chest Chest palpation & inspection: normal palpation of entire chest wall Resp Effort & Inspection: normal respiratory effort Neuro General: patient oriented x3 Assessment & Plan Assessment & Plan (1) Upper respiratory tract infection: Code(s): J06.9 - Acute upper respiratory infection, unspecified Plan: Antibiotics ordered. Increase fluid intake. Tylenol for aches and pains. If symptoms worsen, follow-up here for a recheck. Medications: New azithromycin (Zithromax) take 500 mg today (day 1), then 250 mg for 4 days (days 2-5) PO 6 tabs 0RF albuterol sulfate 90 mcg/actuation (Ventolin HFA) 1 inh inhalation QID PRN 8.5 grams 1RF shortness of breath or wheezing Coding Level of Care Code Est Pt Level 3 (18562) Diagnoses Upper respiratory tract infection J06.9
[2023-08-27 14:10] VITALS: BP 130/72; PULSE 89; TEMP 37.2; O2SAT 98; BMI 28.2
== END 2023-08-27 14:29 | disposition home or self-care (01) ==
PROVIDERS: PCP Internal Medicine; Visit Provider Internal Medicine
DX: J06.9 Acute upper respiratory infection, unspecified (principal)
CPT/HCPCS: 99213

== ENCOUNTER 2024-01-22 14:18 | Outpatient (AMB) | payer MEDICARE, MEDICAID, SELFPAY ==
[2024-01-22 14:21] VITALS: BP 140/80; BMI 28.0
--- NOTE | 2024-01-22 14:21 | MHC.PC.OV ---
Vital Signs 01/22/24 14:21 01/22/24 16:43 Height 5 ft 4 in Weight 163 lb BMI 28.0 BP 140/80 H 138/80 Blood Pressure Location Lt brachial Lt brachial Position Sitting Sitting Intake Visit Reasons: 6 Month F/U Intake Note: Patient here for a 6 month follow up Donkey Doctor Required: No Accompanied by: Self / Same As Patient Allergies ciprofloxacin [From CIPRO] Allergy (Intermediate, Verified 01/22/24 14:40) RASH penicillin G [Penicillin G] Allergy (Mild, Verified 01/22/24 14:40) RASH Sulfa (Sulfonamide Antibiotics) [Sulfa (Sulfonamides)] Allergy (Mild, Verified 01/22/24 14:40) RASH aspirin [Aspirin] Adverse Reaction (Mild, Verified 01/22/24 14:40) BLEEDING Medication List - Last Reconciled 01/22/24 by Adela Lopez MD albuterol sulfate 90 mcg/actuation (Ventolin HFA) 1 inh inhalation QID PRN amlodipine 2.5 mg PO DAILY 90 days ascorbic acid (vitamin C) (Vitamin C) 500 mg PO DAILY betamethasone dipropionate 0.05% 1 appl topical DAILY 30 days bupropion HCl XL (Wellbutrin XL) 300 mg PO QAM cetirizine (Zyrtec) 10 mg PO DAILY PRN cholecalciferol (vitamin D3) 25 mcg PO DAILY cholestyramine (with sugar) 4 gram (Questran) 4 grams PO BID PRN 30 days clonazepam 2 mg PO BID dextroamphetamine-amphetamine 10 mg (Adderall) 10 mg PO DAILY dicyclomine 20 mg PO QID duloxetine 60 mg PO DAILY metoprolol succinate ER 50 mg PO DAILY polyethylene glycol 3350 (Miralax) 17 grams PO DAILY zinc 50 mg PO DAILY zolpidem (Ambien) 10 mg PO BEDTIME PRN Tobacco use date assessed: 07/24/23 Dental Screening Dental Screen Date: 07/24/23 HPI HPI Comments History of Present Illness Details This is a 58-year-old female with hypertension, mild recurrent major depression, anxiety and low back pain that comes today for follow-up on her conditions. Blood pressure borderline normal to elevated. She takes her amlodipine at bedtime. She still has depression with anxiety and was crying in the office visit today intermittently. She does follows with counseling and psychiatry. She complains of low back pain that has been present for years and was seen pain management who order an MRI but she is claustrophobic and needs an open MRI. I recommend to contact them for this matter. She denies any fever, bowel or bladder incontinence. She does admits that the pain is relieved by smoking marijuana and she is looking to get a medical marijuana card which I told her I could not offer. [facility] Medical History (Updated 01/22/24 @ 16:47 by Adela Lopez MD) Von Willebrand disease Trochanteric bursitis, right hip Elbow pain, left Polyarthralgia Diarrhea following gastrointestinal surgery Discoid lupus Foot callus Essential hypertension Joint pain Thoracic spine pain Breast pain, left Physical exam Diarrhea Screen for colon cancer Mild recurrent major depression DANII (generalized anxiety disorder) IBS (irritable bowel syndrome) Hordeolum externum left upper eyelid Right elbow pain Cholecystectomy planned Insomnia Depression Attention deficit Anxiety Hypertension Surgical History Tubal ligation status History of left salpingo-oophorectomy History of episiotomy Hx laparoscopic cholecystectomy H/O wrist surgery Hx of breast reduction, elective Family History Father Depressed Family history of thyroid problem Stroke Mother High blood pressure Kidney problem Arthritis Social History Household Members: Family Housing: House Alcohol intake: current Alcohol intake frequency: holidays/special occasions only Alcohol type: wine and hard liquor Patient Tobacco Use Status: Never used Tobacco e-Cigarette/Vaping Use: Never Used Second Hand Smoke Exposure: Yes service: No Current occupational status: employed Current occupational exposures/hazards: No Cognitive needs: No Hearing needs: No Vision needs: Yes Questionnaire Thrive Questionnaire Date Thrive assessed: 07/24/23 DANII-7 AMB Questionnaire DANII-7 Date DANII - 7 assessed: 07/24/23 Source: Developed by Drs. Tray Sood, Safia Sy, Pardeep Egan and colleagues, with an educational elsie from [employer] Review of Systems Const All systems reviewed & are unremarkable except as noted in HPI and below Card Denies chest pain at rest, Denies chest pain with activity, Denies edema, Denies irregular heart rhythm, Denies claudication, Denies dyspnea, Denies dyspnea on exertion, Denies orthopnea, Denies paroxysmal nocturnal dyspnea and Denies slow heart rate Resp Denies cough, Denies dyspnea and Denies dyspnea on exertion GI Denies abdominal pain, Denies change in bowel habits, Denies excessive flatus, Denies nausea and Denies vomiting Denies urinary incontinence, Denies urinary hesitancy and Denies urinary urgency Musc Reports back pain, Denies atrophy, Denies deformity and Denies limited range of motion Skin/Breast Denies bleeding lesions, Denies changing lesions and Denies rash Psych Reports abnormal sleep pattern, Reports anxiety and Reports depression Physical exam (Primary Care) Vital Signs: Last Vital Signs BP 140/80 H 01/22/24 14:21 BMI result Body Mass Index 28.0 Tobacco/Smoking Status: Tobacco use Status Tobacco use date assessed 07/24/23 01/22/24 14:25 Patient Tobacco Use Status Never used Tobacco 01/22/24 14:25 e-Cigarette/Vaping Use Never Used 01/22/24 14:25 Thrive Assessment: Date of Thrive Assessment Date Thrive assessed 07/24/23 01/22/24 14:25 Resp Effort & Inspection: normal respiratory effort Auscultation: clear to auscultation bilaterally Cardio Jugular venous distension: no JVD Rate: regular rate Rhythm: regular rhythm Heart sounds: S1 normal heart sound present and S2 normal heart sound present Back/Spine/Pelvis Thoracic/Lumbar Spine: straight leg raise positive bilateral Extrem General: Yes full ROM Assessment and Plan Assessment & Plan (1) Low back pain: Code(s): M54.50 - Low back pain, unspecified Qualifiers: Chronicity: chronic Back pain laterality: bilateral Sciatica presence: with sciatica Sciatica laterality: bilateral sciatica Qualified Code(s): M54.42 - Lumbago with sciatica, left side; M54.41 - Lumbago with sciatica, right side; G89.29 - Other chronic pain Plan: Follow-up with pain management. (2) Essential hypertension: Code(s): I10 - Essential (primary) hypertension Plan: Continue amlodipine. Blood pressure goal is equal or less than 130/80. (3) Mild recurrent major depression: Code(s): F33.0 - Major depressive disorder, recurrent, mild Plan: Follow-up with psychiatry. (4) DANII (generalized anxiety disorder): Code(s): F41.1 - Generalized anxiety disorder Plan: Follow-up with psychiatry. Coding Level of Care Code Est Pt Level 4 (58652) Complex EM visit Add On G2211 Diagnoses Chronic bilateral low back pain with bilateral sciatica M54.42; M54.41; G89.29 Chronicity: chronic Back pain laterality: bilateral Sciatica presence: with sciatica Sciatica laterality: bilateral sciatica Essential hypertension I10 Mild recurrent major depression F33.0 DANII (generalized anxiety disorder) F41.1 Time Spent (min) 23
[2024-01-22 16:43] VITALS: BP 138/80
== END 2024-01-22 15:07 | disposition home or self-care (01) ==
PROVIDERS: PCP Internal Medicine; Visit Provider Internal Medicine
DX: M54.42 Lumbago with sciatica, left side (principal); M54.41 Lumbago with sciatica, right side; G89.29 Other chronic pain; F33.0 Major depressive disorder, recurrent, mild; I10 Essential (primary) hypertension; F41.1 Generalized anxiety disorder
CPT/HCPCS: 99214; G2211

== ENCOUNTER 2024-02-18 11:29 | Outpatient (AMB) | payer MEDICARE, MEDICAID, SELFPAY ==
--- NOTE | 2024-02-18 11:31 | A.OFFVIS_ITS ---
Vital Signs 3 02/18/24 11:32 Height 5 ft 4 in Weight 163 lb BMI 28.0 BP 140/72 H Blood Pressure Location Lt brachial Position Sitting Respiration 14 Pulse 66 Pulse Source Pulse Oximeter Pulse Oximetry (%) 98 Oxygen Delivery Method Room Air Intake Visit Reasons: Discuss MRI Results Allergies ciprofloxacin [From CIPRO] Allergy (Intermediate, Verified 03/12/24 12:42) RASH penicillin G [Penicillin G] Allergy (Mild, Verified 03/12/24 12:42) RASH Sulfa (Sulfonamide Antibiotics) [Sulfa (Sulfonamides)] Allergy (Mild, Verified 03/12/24 12:42) RASH aspirin [Aspirin] Adverse Reaction (Mild, Verified 03/12/24 12:42) BLEEDING Medication List - Last Reconciled 02/18/24 by Carmita Oropeza LPN albuterol sulfate 90 mcg/actuation (Ventolin HFA) 1 inh inhalation QID PRN amlodipine 2.5 mg PO DAILY 90 days ascorbic acid (vitamin C) (Vitamin C) 500 mg PO DAILY betamethasone dipropionate 0.05% 1 appl topical DAILY 30 days bupropion HCl XL (Wellbutrin XL) 300 mg PO QAM cetirizine (Zyrtec) 10 mg PO DAILY PRN cholecalciferol (vitamin D3) 25 mcg PO DAILY cholestyramine (with sugar) 4 gram (Questran) 4 grams PO BID PRN 30 days clonazepam 2 mg PO BID dextroamphetamine-amphetamine 10 mg (Adderall) 10 mg PO DAILY dicyclomine 20 mg PO QID duloxetine 60 mg PO DAILY metoprolol succinate ER 50 mg PO DAILY polyethylene glycol 3350 (Miralax) 17 grams PO DAILY zinc 50 mg PO DAILY zolpidem (Ambien) 10 mg PO BEDTIME PRN HPI HPI Discuss MRI Results: Details: 58-year-old female who presents today to the office for a review of MRI scan result. She reports pain in her lower back that radiates down to the right leg. She reports severe pain in her SIJ region since two years. She had received SIJ injections in the past with no significant relief. She has not done physical therapy since her last visit. Her last physical therapy was about two years ago. Past Procedures: 04/20/23: Right intercostal nerve block T9-T10, ultrasound guided: 50% relief. [facility] Medical History (Updated 03/12/24 @ 13:18 by Leana Hill MD) Osteoarthritis involving multiple joints on both sides of body Fibromyalgia Von Willebrand disease Trochanteric bursitis, right hip Elbow pain, left Polyarthralgia Diarrhea following gastrointestinal surgery Discoid lupus Foot callus Essential hypertension Joint pain Thoracic spine pain Breast pain, left Physical exam Diarrhea Screen for colon cancer Mild recurrent major depression DANII (generalized anxiety disorder) IBS (irritable bowel syndrome) Hordeolum externum left upper eyelid Right elbow pain Cholecystectomy planned Insomnia Depression Attention deficit Anxiety Hypertension Surgical History Tubal ligation status History of left salpingo-oophorectomy History of episiotomy Hx laparoscopic cholecystectomy H/O wrist surgery Hx of breast reduction, elective Family History Father Depressed Family history of thyroid problem Stroke Mother High blood pressure Kidney problem Arthritis Social History Household Members: Family Housing: House Alcohol intake: current Alcohol intake frequency: holidays/special occasions only Alcohol type: wine and hard liquor Patient Tobacco Use Status: Never used Tobacco e-Cigarette/Vaping Use: Never Used Second Hand Smoke Exposure: Yes service: No Current occupational status: employed Current occupational exposures/hazards: No Cognitive needs: No Hearing needs: No Vision needs: Yes Review of Systems Const All systems reviewed & are unremarkable except as noted in HPI and below Physical Exam Vital Signs: Last Vital Signs Pulse 66 02/18/24 11:32 Resp 14 02/18/24 11:32 BP 140/72 H 02/18/24 11:32 Pulse Ox 98 02/18/24 11:32 Oxygen Delivery Method Room Air 02/18/24 11:32 BMI result Body Mass Index 28.0 General: Appears afebrile. Alert and oriented. Mood and affect appropriate. Follows and participates in conversation appropriately. Respiratory effort is unlabored. Able to transition from sit to stand unassisted. Ambulates with bilaterally normal heel strike and toe off. Results Reviewed Results Reviewed: 01/28/2024: MR lumbar spine Assessment & Plan Assessment & Plan (1) Lumbar spondylosis: Code(s): M47.816 - Spondylosis without myelopathy or radiculopathy, lumbar region Category: Medical (2) Thoracic spondylosis: Code(s): M47.814 - Spondylosis without myelopathy or radiculopathy, thoracic region Category: Medical Plan Discussed temporary peripheral nerve stimulator and stretching and strengthening exercises at home as possible treatment options. She will initiate formal physical therapy and continue that for six weeks, after which we will plan on doing a right L3 medial branch nerve stimulator placement for intractable low back pain. Given her history of VWF, she will arrange for a DDAVP injection with hematology on the day of the procedure. So, we will schedule her procedure in the early afternoon to allow her time to accomplish that prior to the procedure. Discussed the risks and benefits of the procedure with the patient in detail. All questions were answered. The patient is on board with the plan. Justification for interventional therapy: ? Patient with average pain > 6/10 ? Patient has exhausted conservative therapy ? Actively performing physical therapy . Patient has a good understanding of their pain condition and has appropriate mental and social support Scribed for Dr. Braxton by Chad Andrade, medical assistant internal medicine, on 02/18/2024. I, Dr. Braxton, have personally reviewed and agree with the information entered by the scribe. Orders: Orders 2 PT Evaluation and Treatment 02/18/24 M47.814 - Spondylosis without myelopathy or radiculopathy, thoracic region, M47.816 - Spondylosis without myelopathy or radiculopathy, lumbar region Coding Level of Care Code Est Pt Level 4 (94530) Diagnoses Lumbar spondylosis M47.816 Thoracic spondylosis M47.814
[2024-02-18 11:32] VITALS: BP 140/72; PULSE 66; RESP 14; O2SAT 98; BMI 28.0
== END 2024-02-18 12:15 | disposition home or self-care (01) ==
LOC: HO.PMC 11:29
PROVIDERS: PCP Internal Medicine; Visit Provider Internal Medicine
DX: M47.816 Spondylosis without myelopathy or radiculopathy, lumbar region (principal); M47.814 Spondylosis without myelopathy or radiculopathy, thoracic region
CPT/HCPCS: 99214

== ENCOUNTER → 2024-02-18 11:29 | Outpatient (BNVA) | payer MEDICARE, MEDICAID, SELFPAY | PROVIDERS: PCP Internal Medicine; Visit Provider Internal Medicine | DX: M47.816 Spondylosis without myelopathy or radiculopathy, lumbar region (principal); M47.814 Spondylosis without myelopathy or radiculopathy, thoracic region; Z71.2 Person consulting for explanation of examination or test findings | CPT/HCPCS: 99212 ==

== ENCOUNTER 2024-02-21 13:04 | Outpatient (AMB) | payer MEDICARE, SELFPAY ==
[2024-02-21 13:06] VITALS: BP 132/82; PULSE 78; O2SAT 96; BMI 27.3
--- NOTE | 2024-02-21 13:06 | A.OFFVIS_ITS ---
Vital Signs 02/21/24 13:06 Height 5 ft 4 in Weight 159 lb BMI 27.3 BP 132/82 Blood Pressure Location Lt brachial Position Sitting Pulse 78 Pulse Source Pulse Oximeter Pulse Oximetry (%) 96 Oxygen Delivery Method Room Air Intake Visit Reasons: Right Hip Bursitis, Left Elbow Bursitis. Intake Note: Patient is a new patient, internally referred by her PCP for right hip bursitis, and left elbow bursitis. Allergies ciprofloxacin [From CIPRO] Allergy (Intermediate, Verified 02/21/24 13:10) RASH penicillin G [Penicillin G] Allergy (Mild, Verified 02/21/24 13:10) RASH Sulfa (Sulfonamide Antibiotics) [Sulfa (Sulfonamides)] Allergy (Mild, Verified 02/21/24 13:10) RASH aspirin [Aspirin] Adverse Reaction (Mild, Verified 02/21/24 13:10) BLEEDING Medication List - Last Reconciled 02/21/24 by Leana Hill MD albuterol sulfate 90 mcg/actuation (Ventolin HFA) 1 inh inhalation QID PRN amlodipine 2.5 mg PO DAILY 90 days ascorbic acid (vitamin C) (Vitamin C) 500 mg PO DAILY betamethasone dipropionate 0.05% 1 appl topical DAILY 30 days bupropion HCl XL (Wellbutrin XL) 300 mg PO QAM cetirizine (Zyrtec) 10 mg PO DAILY PRN cholecalciferol (vitamin D3) 25 mcg PO DAILY cholestyramine (with sugar) 4 gram (Questran) 4 grams PO BID PRN 30 days clonazepam 2 mg PO BID dextroamphetamine-amphetamine 10 mg (Adderall) 10 mg PO DAILY dicyclomine 20 mg PO QID duloxetine 60 mg PO DAILY metoprolol succinate ER 50 mg PO DAILY polyethylene glycol 3350 (Miralax) 17 grams PO DAILY zinc 50 mg PO DAILY zolpidem (Ambien) 10 mg PO BEDTIME PRN HPI Comments Details: Patient is a 58-year-old female with hypertension, biopsy-proven discoid lupus (2016) and fibromyalgia Interval History: Patient last seen 04/24/2023. During that time she was complaining of multiple issues. Right elbow pain which was managed conservatively, right trochanteric bursitis which was managed with a steroid injection, and hand pain which was managed conservatively. Today she states that the injection helped her right hip but that it wore off and that she continues to have pain. States she can not sleep on that side. She also notes pain in her sacrum. With respect to her discoid she denies any new lesions, prolonged morning stiffness, alopecia, oral/nasal ulcers. Rheumatologic History: Patient initially presented for evaluation 11/08/2021 with Jerrica Dennison. At that time she was referred for worsening polyarthralgia. Serologies done showed negative ADELA, rheumatoid factor, CCP, anti DNA and anti LEENA. She had widespread tenderness and multiple fibromyalgia tender points. There was no active synovitis noted. She then followed up 04/24/2023 with Lizzie Vaca complaining of hand pain, elbow pain, and right hip pain. She was given a right trochanteric bursa injection for right trochanteric bursitis. She was also found to have elbow tendonitis which was managed conservatively. With respect to her discoid lupus she was diagnosed 2016 after biopsy. Currently follows with dermatology and uses topical medications. No evidence of systemic involvement. ADELA negative. [facility] Medical History Von Willebrand disease Trochanteric bursitis, right hip Elbow pain, left Polyarthralgia Diarrhea following gastrointestinal surgery Discoid lupus Foot callus Essential hypertension Joint pain Thoracic spine pain Breast pain, left Physical exam Diarrhea Screen for colon cancer Mild recurrent major depression DANII (generalized anxiety disorder) IBS (irritable bowel syndrome) Hordeolum externum left upper eyelid Right elbow pain Cholecystectomy planned Insomnia Depression Attention deficit Anxiety Hypertension Surgical History Tubal ligation status History of left salpingo-oophorectomy History of episiotomy Hx laparoscopic cholecystectomy H/O wrist surgery Hx of breast reduction, elective Family History Father Depressed Family history of thyroid problem Stroke Mother High blood pressure Kidney problem Arthritis Social History Household Members: Family Housing: House Alcohol intake: current Alcohol intake frequency: holidays/special occasions only Alcohol type: wine and hard liquor Patient Tobacco Use Status: Never used Tobacco e-Cigarette/Vaping Use: Never Used Second Hand Smoke Exposure: Yes service: No Current occupational status: employed Current occupational exposures/hazards: No Cognitive needs: No Hearing needs: No Vision needs: Yes Review of Systems Const Details: Review of Systems Constitutional: Denies fever, chills, weight loss ENT: Denies vision changes, eye pain or eye redness, dental caries, dry mouth GI: Denies nausea, vomiting, diarrhea, abdominal pain, change in BM Pulm: Denies SOB, KIRBY, hemoptysis, wheezing Cards: Denies chest pain, palpitations Skin: Denies Raynaud's, rash, nail changes, photosensitivity, VACATION SALES ADVISOR: 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 Denies joint swelling, muscle weakness, bone pain All other systems reviewed and are unremarkable except noted above Physical Exam Vital Signs: Last Vital Signs Pulse 78 02/21/24 13:06 BP 132/82 02/21/24 13:06 Pulse Ox 96 02/21/24 13:06 Oxygen Delivery Method Room Air 02/21/24 13:06 BMI result Body Mass Index 27.3 Office Procedures Joint Injection/Aspiration Joint Injection/Aspiration Details: Procedure was explained to the patient and consent was obtained. The area of interest was identified and confirmed with patient. This was subsequently cleaned with chlorhexidine x3. The area was then anesthetized using ethyl chloride spray. 40 mg Kenalog with 1 cc 1% lidocaine was injected without issue. Minimal to no bleeding. Patient tolerated procedure. Primary Site: other (Right greater trochanter bursa) Prep: site was prepped using aseptic technique and ethochloride spray was applied Injected: 40 mg of, Kenalog, with 1 mL of and 1% plain lidocaine Approach Used: other (Lateral approach) Procedure: The patient tolerated the procedure well Coding 91916 - Glenohumeral/Tronchanteric Bursa/Intraarticular Procedure code (CPT) selection complete Results Reviewed Results Reviewed: Results reviewed Laboratory Tests 07/05/18 10/12/21 11/08/21 16:07 12:01 09:40 WBC 7.2 6.5 RBC 4.75 4.98 Hgb 13.3 13.7 Hct 41.2 42.8 Plt Count 227 241 ESR 19 Sodium Potassium Chloride Carbon Dioxide BUN Creatinine Total Bilirubin AST ALT Alkaline Phosphatase C-Reactive Protein 0.26 Total Protein Albumin 25-OH Vitamin D Total 28 L 02/08/22 04/11/22 07/10/23 14:56 16:33 11:11 WBC 8.7 RBC Hgb 14.2 Hct 44.1 Plt Count 256 ESR 31 H Sodium 142 143 Potassium 4.4 4.7 Chloride 106 108 Carbon Dioxide 28 29 BUN 14 18 H Creatinine 1.11 0.96 Total Bilirubin 0.7 0.3 AST 23 16 ALT 20 12 Alkaline Phosphatase 180 H 133 H C-Reactive Protein 0.43 Total Protein 7.5 7.7 Albumin 4.3 4.1 25-OH Vitamin D Total 22.8 Assessment & Plan Assessment & Plan (1) Discoid lupus: Comment: scalp involvement Code(s): L93.0 - Discoid lupus erythematosus Category: Medical Plan: #Discoid Lupus Patient with discoid lupus without evidence of systemic involvement. ADELA negative. Currently in remission. (2) Fibromyalgia: Code(s): M79.7 - Fibromyalgia Category: Medical Plan: #Fibromyalgia Patient having a mild flare of her fibromyalgia. We will prescribe 14 day course of Flexeril. To see if this will help (3) Trochanteric bursitis, right hip: Code(s): M70.61 - Trochanteric bursitis, right hip Category: Medical Plan: #Right greater trochanteric bursitis Status post steroid injection today. We will review in 2 weeks if there is any improvement. Plan I spent [45] minutes reviewing the record and labs, seeing the patient, performing procedures, discussing the treatment plan and documenting in the medical record Orders: Orders XR hip LT min 2V Today L93.0 - Discoid lupus erythematosus, M25.50 - Pain in unspecified joint, M53.3 - Sacrococcygeal disorders, not elsewhere classified, M79.7 - Fibromyalgia Erythrocyte Sedimentation Rate Today L93.0 - Discoid lupus erythematosus, M25.50 - Pain in unspecified joint, M53.3 - Sacrococcygeal disorders, not elsewhere classified, M79.7 - Fibromyalgia Complete Blood Count Auto Diff Today L93.0 - Discoid lupus erythematosus, M25.50 - Pain in unspecified joint, M53.3 - Sacrococcygeal disorders, not elsewhere classified, M79.7 - Fibromyalgia Comprehensive Met. Panel Today L93.0 - Discoid lupus erythematosus, M25.50 - Pain in unspecified joint, M53.3 - Sacrococcygeal disorders, not elsewhere classified, M79.7 - Fibromyalgia Complement C3 Today L93.0 - Discoid lupus erythematosus Complement C4 Today L93.0 - Discoid lupus erythematosus UA w Microscopic Today L93.0 - Discoid lupus erythematosus Protein Creatinine Ratio, Ur Today L93.0 - Discoid lupus erythematosus XR hip RT min 2V Today L93.0 - Discoid lupus erythematosus, M25.50 - Pain in unspecified joint, M53.3 - Sacrococcygeal disorders, not elsewhere classified, M79.7 - Fibromyalgia XR sacroiliac joint min 3V Today L93.0 - Discoid lupus erythematosus, M25.50 - Pain in unspecified joint, M53.3 - Sacrococcygeal disorders, not elsewhere classified, M79.7 - Fibromyalgia C Reactive Protein Today L93.0 - Discoid lupus erythematosus, M25.50 - Pain in unspecified joint, M53.3 - Sacrococcygeal disorders, not elsewhere classified, M79.7 - Fibromyalgia Anti DNA DS Antibody Today L93.0 - Discoid lupus erythematosus AMB Joint Injection/Aspiration Today M70.61 - Trochanteric bursitis, right hip Medications: New cyclobenzaprine 5 mg PO BEDTIME 14 tabs 0RF M70.61 - Trochanteric bursitis, right hip, M79.7 - Fibromyalgia Coding Level of Care Code Est Pt Level 3 (03678) Diagnoses Discoid lupus L93.0 Fibromyalgia M79.7 Trochanteric bursitis, right hip M70.61 CPT Codes Coding - Joint 7: - Glenohumeral/Tronchanteric Bursa/Intraarticular ([id number])
== END 2024-02-21 14:20 | disposition home or self-care (01) ==
PROVIDERS: PCP Internal Medicine; Visit Provider Student in an Organized Health Care Education/Training Program
DX: L93.0 Discoid lupus erythematosus (principal); M79.7 Fibromyalgia; M70.61 Trochanteric bursitis, right hip; M70.32 Other bursitis of elbow, left elbow
CPT/HCPCS: 20610; 99215

== ENCOUNTER 2024-02-21 13:04 | Outpatient (REF) | payer OTHER, SELFPAY ==
--- NOTE | ~2024-02-21 | XR_ITS ---
EXAMINATION: XR HIP LEFT 2 VIEWS CLINICAL INFORMATION: Sacrococcygeal disorders, not elsewhere classified M53.3. COMPARISON: Pelvis radiograph 01/13/2019 TECHNIQUE: Two views of the left hip. FINDINGS: No fracture. Alignment is anatomic. Hip joint space is maintained. Soft tissues are unremarkable. XR/XR hip LT min 2V IMPRESSION: Normal left hip. Electronically signed by: Eliel Rashid MD 04/30/2024 12:06 PM BARBY TRIANA
[2024-02-21 14:48] LABS: MANUAL DIFF FLAG NO
[2024-02-21 15:09] LABS: Basophils Absolute Auto 0.1 X10*3/uL (0.0-0.2); Basophils Percent Auto 1.5 % (0-2); Eosinophils Absolute Auto 0.2 X10*3/uL (0.0-0.4); Eosinophils Percent Auto 2.9 % (0-4); Hematocrit 43.5 % (37.0-47.0); Imm Gran Abs Auto 0.02 X10*3/uL (0.00-0.03); Imm Gran Pct Auto 0.3 % (0.0-0.4); Lymphocytes Absolute Auto 2.1 X10*3/uL (1.2-4.9); Lymphocytes Percent Auto 29.4 % (20-40); Mean Corpuscular HGB Conc 32.2 g/dl (31.0-35.0); Mean Corpuscular Hemoglobin 27.6 pg (27.0-33.0); Mean Corpuscular Volume 85.8 fL (80.0-98.0); Mean Platelet Volume 11.4 fL (9.4-12.3); Monocytes Absolute Auto 0.4 X10*3/uL (0.1-1.2); Monocytes Percent Auto 5.8 % (2-11); Neutrophils Absolute Auto 4.3 x10*3/uL (2.0-8.3); Neutrophils Percent Auto 60.1 % (45-73); Platelet Count 279 X10*3/uL (160-400); Red Blood Count 5.07 X10*6/uL (4.20-5.50); Red Cell Distribution Width 13.1 % (11.0-16.0); White Blood Count 7.2 X10*3/uL (4.8-10.8)
[2024-02-21 15:31] LABS: Appearance Urine Clear; Color Urine Yellow; Glucose Urine UA Negative (Negative); Leukocyte Esterase Urine Negative (Negative); Nitrite Urine Negative (Negative); PH 5.5 (5.0-9.0); Urine Blood Negative (Negative); Urine Ketones Negative (Negative); Urine Protein Negative (Neg-Trace)
[2024-02-21 15:42] LABS: Bacteria Urine None Seen (None Seen); Hyaline Casts Urine 0-2 /LPF (0-2); Other Crystals Urine Present; RBC Urine 0-2 /HPF (0-2); Squamous Epithelial Cell Urine 0-2 /HPF (0-2); WBC Urine 0-5 /HPF (0-5)
[2024-02-21 15:43] LABS: Alanine Aminotransferase 15 U/L (0-31); Albumin Level 4.2 g/dL (3.5-5.0); Alkaline Phosphatase 177 U/L (39-117); Anion Gap 11 (12-20); Aspartate Amino Transferase 19 U/L (5-31); Bilirubin Total 0.4 mg/dL (0.0-1.0); Blood Urea Nitrogen 16 mg/dL (9-16); C Reactive Protein 0.41 mg/dL (< or = 0.50); Calcium 10.5 mg/dL (8.4-10.2); Carbon Dioxide 28 mmol/L (22-29); Chloride 108 mmol/L (96-108); Estimated Glomerular Filt Rate 58; Glucose Random 103 mg/dL (60-115); Potassium 4.8 mmol/L (3.3-5.1); Sodium 142 mmol/L (135-145); Total Protein 7.9 g/dL (6.5-8.0)
[2024-02-21 15:52] LABS: Erythrocyte Sedimentation Rate 19 MM/HR (0-20)
[2024-02-21 16:22] LABS: Creatinine Urine 68.23 mg/dL; Total Protein Urine Random < 7 mg/dL (<12)
[2024-02-21 16:58] LABS: Vitamin D 25-OH Total 42.7 ng/mL (>30)
[2024-02-22 11:24] LABS: Complement C3 157 mg/dL (83-193)
[2024-02-26 07:14] LABS: Anti DNA DS Antibody 1 IU/mL
== END 2024-02-21 13:05 | disposition home or self-care (01) ==
LOC: HO.LAB 13:04
PROVIDERS: PCP Internal Medicine; Visit Provider Student in an Organized Health Care Education/Training Program
DX: M53.3 Sacrococcygeal disorders, not elsewhere classified (principal); M25.50 Pain in unspecified joint; M79.7 Fibromyalgia; L93.0 Discoid lupus erythematosus; M70.61 Trochanteric bursitis, right hip
CPT/HCPCS: 20610; 36415; 72202; 73502; 80053; 81001; 82306; 82570; 84156; 85025; 85652; 86140; 86160; 86225; 99212; J2003; J3301

== ENCOUNTER 2024-03-12 12:37 | Outpatient (AMB) | payer MEDICARE, SELFPAY ==
[2024-03-12 12:40] VITALS: BP 134/74; PULSE 67; O2SAT 99; BMI 27.3
--- NOTE | 2024-03-12 12:40 | A.OFFVIS_ITS ---
Vital Signs 03/12/24 12:40 Height 5 ft 4 in Weight 159 lb BMI 27.3 BP 134/74 Blood Pressure Location Lt brachial Position Sitting Pulse 67 Pulse Source Pulse Oximeter Pulse Oximetry (%) 99 Oxygen Delivery Method Room Air Intake Visit Reasons: follow up Intake Note: Patient presents today for follow up on discoid lupus and lab review. She was last seen in the office on 02/21/[address] Hill. Patient is in sciatica pain today in right side for 2 days. Allergies ciprofloxacin [From CIPRO] Allergy (Intermediate, Verified 03/12/24 12:42) RASH penicillin G [Penicillin G] Allergy (Mild, Verified 03/12/24 12:42) RASH Sulfa (Sulfonamide Antibiotics) [Sulfa (Sulfonamides)] Allergy (Mild, Verified 03/12/24 12:42) RASH aspirin [Aspirin] Adverse Reaction (Mild, Verified 03/12/24 12:42) BLEEDING Medication List - Last Reconciled 03/12/24 by Leana Hill MD albuterol sulfate 90 mcg/actuation (Ventolin HFA) 1 inh inhalation QID PRN amlodipine 2.5 mg PO DAILY 90 days ascorbic acid (vitamin C) (Vitamin C) 500 mg PO DAILY betamethasone dipropionate 0.05% 1 appl topical DAILY 30 days bupropion HCl XL (Wellbutrin XL) 300 mg PO QAM cetirizine (Zyrtec) 10 mg PO DAILY PRN cholecalciferol (vitamin D3) 25 mcg PO DAILY cholestyramine (with sugar) 4 gram (Questran) 4 grams PO BID PRN 30 days clonazepam 2 mg PO BID cyclobenzaprine 5 mg PO BEDTIME dextroamphetamine-amphetamine 10 mg (Adderall) 10 mg PO DAILY dicyclomine 20 mg PO QID duloxetine 60 mg PO DAILY gabapentin 100 mg PO BEDTIME 90 days metoprolol succinate ER 50 mg PO DAILY polyethylene glycol 3350 (Miralax) 17 grams PO DAILY zinc 50 mg PO DAILY zolpidem (Ambien) 10 mg PO BEDTIME PRN HPI Comments Details: Patient is a 58-year-old female with hypertension, biopsy-proven discoid lupus (2015), polyarticular OA and fibromyalgia presents today for follow up Interval History: Patient last seen 02/21/2024. At that time patient was complaining of right trochanteric bursitis as well as back pain extending from her mid back all the way down to her sacrum. She was given a right trochanteric bursal injection. And sent to do x-rays and lab work. Today patient states that she has improvement in her right hip however still has pain in her low back and the base of the thumb. Rheumatologic History: Patient initially presented for evaluation 11/08/2021 with Jerrica Dennison. At that time she was referred for worsening polyarthralgia. Serologies done showed negative ADELA, rheumatoid factor, CCP, anti DNA and anti LEENA. She had widespread tenderness and multiple fibromyalgia tender points. There was no active synovitis noted. She then followed up 04/24/2023 with Lizzie Vaca complaining of hand pain, elbow pain, and right hip pain. She was given a right trochanteric bursa injection for right trochanteric bursitis. She was also found to have elbow tendonitis which was managed conservatively. With respect to her discoid lupus she was diagnosed 2015 after biopsy. Currently follows with dermatology and uses topical medications. No evidence of systemic involvement. ADELA negative. [facility] Medical History (Updated 03/12/24 @ 13:18 by Leana Hill MD) Osteoarthritis involving multiple joints on both sides of body Fibromyalgia Von Willebrand disease Trochanteric bursitis, right hip Elbow pain, left Polyarthralgia Diarrhea following gastrointestinal surgery Discoid lupus Foot callus Essential hypertension Joint pain Thoracic spine pain Breast pain, left Physical exam Diarrhea Screen for colon cancer Mild recurrent major depression DANII (generalized anxiety disorder) IBS (irritable bowel syndrome) Hordeolum externum left upper eyelid Right elbow pain Cholecystectomy planned Insomnia Depression Attention deficit Anxiety Hypertension Surgical History Tubal ligation status History of left salpingo-oophorectomy History of episiotomy Hx laparoscopic cholecystectomy H/O wrist surgery Hx of breast reduction, elective Family History Father Depressed Family history of thyroid problem Stroke Mother High blood pressure Kidney problem Arthritis Social History Household Members: Family Housing: House Alcohol intake: current Alcohol intake frequency: holidays/special occasions only Alcohol type: wine and hard liquor Patient Tobacco Use Status: Never used Tobacco e-Cigarette/Vaping Use: Never Used Second Hand Smoke Exposure: Yes service: No Current occupational status: employed Current occupational exposures/hazards: No Cognitive needs: No Hearing needs: No Vision needs: Yes Review of Systems Const Details: Review of Systems Constitutional: Denies fever, chills, weight loss ENT: Denies vision changes, eye pain or eye redness, dental caries, dry mouth GI: Denies nausea, vomiting, diarrhea, abdominal pain, change in BM Pulm: Denies SOB, KIRBY, hemoptysis, wheezing Cards: Denies chest pain, palpitations Skin: Denies Raynaud's, rash, nail changes, photosensitivity, 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 Denies joint swelling, muscle weakness, bone pain All other systems reviewed and are unremarkable except noted above Physical Exam Vital Signs: Last Vital Signs Pulse 67 03/12/24 12:40 BP 134/74 03/12/24 12:40 Pulse Ox 99 03/12/24 12:40 Oxygen Delivery Method Room Air 03/12/24 12:40 BMI result Body Mass Index 27.3 Physical Examination Patient well appearing and in no apparent painful distress Able to rise from chair without support. ?Gait normal. Constitutional Mucous membranes pink and moist patient alert and cooperative HEENT Conjunctiva and sclera clear. ?Pupils equal round and reactive to light. ?No lymphadenopathy. ?Normal dentition. Respiratory System Normal respiratory effort and able to speak in complete sentences. ?Clear to auscultation bilaterally. ?No crackles, rales, rhonchi, wheezes heard. Cardiac System Regular rate and rhythm. ?S1 and S2 heard no murmurs. ?Radial pulses intact bilaterally MSK Hands:.??Normal pain-free range of motion without tenderness, swelling, incre ased warmth or erythema. 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 Heberden's nodes noted. Tenderness to palpation at the base of the thumb in bilateral hands. Positive CMC grind test. Wrists: Normal pain-free range of motion without tenderness, swelling, increased warmth or erythema. Elbows: Full range of motion without pain. No tenderness, weakness, swelling, increased warmth or erythema. Shoulders: Full range of motion without pain. No tenderness, weakness, swelling, increased warmth or erythema. Hips: Full range of motion without pain. Hip bursa:.??No tenderness. Knees:.???Normal pain-free range of motion without tenderness, swelling, increased warmth or erythema.? Crepitance is noted bilaterally Ankles:.??Normal pain-free range of motion without tenderness, swelling, increased warmth or erythema. Feet:.??Normal pain-free range of motion without tenderness, swelling, increased warmth or erythema. Tender points:??Tenderness to digital palpation of the occiput and trapezius. Results Reviewed Results Reviewed: XR Bilateral Hips 02/2024 Increase sclerotic margin of the upper pole of the acetabulum consistent with osteoarthritis bilateral hips. Osteophytes also seen. No erosions noted. (my read) XR SI joints 02/2024 SI joints patent. (My read) Laboratory Tests 02/21/24 14:46 WBC 7.2 RBC 5.07 Hgb 14.0 Hct 43.5 Plt Count 279 ESR 19 Sodium 142 Potassium 4.8 Chloride 108 Carbon Dioxide 28 BUN 16 Creatinine 0.98 C-Reactive Protein 0.41 25-OH Vitamin D Total 42.7 Assessment & Plan Assessment & Plan (1) Osteoarthritis involving multiple joints on both sides of body: Code(s): M15.9 - Polyosteoarthritis, unspecified Category: Medical Plan: #Polyarticular OA Patient with polyarticular OA involving the hips, back unlikely knees as well as 1st CMC joint. Discussed the diagnosis of osteoarthritis and that this is not curable. Gave patient prescription for gabapentin 100 mg at night as well as stretching exe rcises for her to do in the morning and in the evening. No suspicion for autoimmune disease such as rheumatoid arthritis, lupus or ankylosing spondylitis at this time. Normal ESR/CRP. Negative autoimmune serologies. (2) Fibromyalgia: Code(s): M79.7 - Fibromyalgia Category: Medical Plan: #Fibromyalgia Patient having a mild flare of her fibromyalgia. We will prescribe 14 day course of Flexeril. To see if this will help (3) Discoid lupus: Comment: scalp involvement Code(s): L93.0 - Discoid lupus erythematosus Category: Medical Plan: #Discoid Lupus Patient with discoid lupus without evidence of systemic involvement. ADELA negative. Currently in remission. (4) Trochanteric bursitis, right hip: Code(s): M70.61 - Trochanteric bursitis, right hip Category: Medical Plan: #Right greater trochanteric bursitis Improved status post injection. Plan I spent 20 minutes reviewing the record and labs, seeing the patient, discussing the treatment plan and documenting in the medical record ? For next visit: * Consider DEXA scan Medications: New gabapentin 100 mg PO BEDTIME 90 caps 1RF 90 days M79.7 - Fibromyalgia Coding Level of Care Code Est Pt Level 3 (16135) Diagnoses Osteoarthritis involving multiple joints on both sides of body M15.9 Fibromyalgia M79.7 Discoid lupus L93.0 Trochanteric bursitis, right hip M70.61
== END 2024-03-12 13:02 | disposition home or self-care (01) ==
PROVIDERS: PCP Internal Medicine; Visit Provider Student in an Organized Health Care Education/Training Program
DX: M15.9 Polyosteoarthritis, unspecified (principal); M79.7 Fibromyalgia; L93.0 Discoid lupus erythematosus; M70.61 Trochanteric bursitis, right hip
CPT/HCPCS: 99213

== ENCOUNTER → 2024-03-12 12:37 | Outpatient (BNVA) | payer MEDICARE, SELFPAY | PROVIDERS: PCP Internal Medicine; Visit Provider Student in an Organized Health Care Education/Training Program | DX: M15.9 Polyosteoarthritis, unspecified (principal); M79.7 Fibromyalgia; M70.61 Trochanteric bursitis, right hip; L93.0 Discoid lupus erythematosus | CPT/HCPCS: 99212 ==

== ENCOUNTER 2024-07-15 12:38 | Outpatient (AMB) | payer MEDICARE, SELFPAY ==
--- NOTE | 2024-07-15 12:41 | A.OFFVIS_ITS ---
Vital Signs 07/15/24 12:47 Height 5 ft 4 in Weight 150 lb 2.157 oz BMI 25.8 BP 130/74 Blood Pressure Location Lt brachial Position Sitting Pulse 68 Pulse Source Pulse Oximeter Pulse Oximetry (%) 99 Oxygen Delivery Method Room Air Intake Visit Reasons: follow up Intake Note: Patient presents for follow up. Allergies ciprofloxacin [From CIPRO] Allergy (Intermediate, Verified 07/15/24 12:43) RASH penicillin G [Penicillin G] Allergy (Mild, Verified 07/15/24 12:43) RASH Sulfa (Sulfonamide Antibiotics) [Sulfa (Sulfonamides)] Allergy (Mild, Verified 07/15/24 12:43) RASH aspirin [Aspirin] Adverse Reaction (Mild, Verified 07/15/24 12:43) BLEEDING Medication List - Last Reconciled 07/15/24 by Leana Hill MD albuterol sulfate 90 mcg/actuation (Ventolin HFA) 1 inh inhalation QID PRN amlodipine 2.5 mg PO DAILY 90 days ascorbic acid (vitamin C) (Vitamin C) 500 mg PO DAILY betamethasone dipropionate 0.05% 1 appl topical DAILY 30 days cetirizine (Zyrtec) 10 mg PO DAILY PRN cholecalciferol (vitamin D3) 25 mcg PO DAILY cholestyramine (with sugar) 4 gram (Questran) 4 grams PO BID PRN 30 days clonazepam 2 mg PO BID cyclobenzaprine 5 mg PO BEDTIME dextroamphetamine-amphetamine 10 mg (Adderall) 10 mg PO DAILY dicyclomine 20 mg PO QID duloxetine 60 mg PO DAILY gabapentin 100 mg PO BEDTIME 90 days incontinence pad, liner, disp Use 3 pads per day metoprolol succinate ER 50 mg PO DAILY polyethylene glycol 3350 (Miralax) 17 grams PO DAILY [wipes As directed] zinc 50 mg PO DAILY HPI Comments Details: Patient is a 58-year-old female with hypertension, biopsy-proven discoid lupus (2016), polyarticular OA and fibromyalgia presents today for follow up Interval History: Patient last seen 03/12/24. At that time patient was following up XR results. She had improvement in her trochanteric bursitis s/p steroid injection 02/21/24 Today, Trochanteric bursitis improved post injection. But starting to have return of pain Still complaining of whole body pain Gabapentin does not help and makes her sleepy Rheumatologic History: Patient initially presented for evaluation 11/08/2021 with Jerrica Dennison. At that time she was referred for worsening polyarthralgia in the setting of biopsy proven discoid lupus. Serologies done showed negative ADELA, rheumatoid factor, CCP, anti DNA and anti LEENA. She had widespread tenderness and multiple fibromyalgia tender points. There was no active synovitis noted. She then followed up 04/24/2023 with Lizzie Vaca complaining of hand pain, elbow pain, and right hip pain. She was given a right trochanteric bursa injection for right trochanteric bursitis. She was also found to have elbow tendonitis which was managed conservatively. With respect to her discoid lupus she was diagnosed 2016 after biopsy. Currently follows with dermatology and uses topical medications. No evidence of systemic involvement. ADELA negative. Current Rheumatology Meds: Gabapentin 100mg at night [facility] Medical History (Updated 03/25/24 @ 20:32 by Adela Lopez MD) Osteoarthritis involving multiple joints on both sides of body Fibromyalgia Von Willebrand disease Trochanteric bursitis, right hip Elbow pain, left Polyarthralgia Diarrhea following gastrointestinal surgery Discoid lupus Foot callus Essential hypertension Joint pain Thoracic spine pain Breast pain, left Physical exam Diarrhea Screen for colon cancer Mild recurrent major depression DANII (generalized anxiety disorder) IBS (irritable bowel syndrome) Hordeolum externum left upper eyelid Right elbow pain Cholecystectomy planned Insomnia Depression Attention deficit Anxiety Hypertension Surgical History Tubal ligation status History of left salpingo-oophorectomy History of episiotomy Hx laparoscopic cholecystectomy H/O wrist surgery Hx of breast reduction, elective Family History Father Depressed Family history of thyroid problem Stroke Mother High blood pressure Kidney problem Arthritis Social History Household Members: Family Housing: House Alcohol intake: current Alcohol intake frequency: holidays/special occasions only Alcohol type: wine and hard liquor Patient Tobacco Use Status: Never used Tobacco e-Cigarette/Vaping Use: Never Used Second Hand Smoke Exposure: Yes service: No Current occupational status: employed Current occupational exposures/hazards: No Cognitive needs: No Hearing needs: No Vision needs: Yes Review of Systems Const Details: Review of Systems Constitutional: Denies fever, chills, weight loss ENT: Denies vision changes, eye pain or eye redness, dental caries, dry mouth GI: Denies nausea, vomiting, diarrhea, abdominal pain, change in BM Pulm: Denies SOB, KIRBY, hemoptysis, wheezing Cards: Denies chest pain, palpitations Skin: Denies Raynaud's, rash, nail changes, photosensitivity, 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 Denies joint swelling, muscle weakness, bone pain All other systems reviewed and are unremarkable except noted above Physical Exam Vital signs reviewed Physical Examination Patient well appearing and in no apparent painful distress Able to rise from chair without support. ?Gait normal. Constitutional Mucous membranes pink and moist patient alert and cooperative HEENT Conjunctiva and sclera clear. ?Pupils equal round and reactive to light. ?No lymphadenopathy. ?Normal dentition. Respiratory System Normal respiratory effort and able to speak in complete sentences. ?Clear to auscultation bilaterally. ?No crackles, rales, rhonchi, wheezes heard. Cardiac System Regular rate and rhythm. ?S1 and S2 heard no murmurs. ?Radial pulses intact bilaterally MSK Hands:.??Normal pain-free range of motion without tenderness, swelling, increased warmth or erythema. 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 Heberden's nodes noted. Tenderness to palpation at the base of the thumb in bilateral hands. Positive CMC grind test. Wrists: Normal pain-free range of motion without tenderness, swelling, increased warmth or erythema. Elbows: Full range of motion without pain. No tenderness, weakness, swelling, increased warmth or erythema. Shoulders: Full range of motion without pain. No tenderness, weakness, swelling, increased warmth or erythema. Hips: Full range of motion without pain. Hip bursa:.??Bilateral TTP Knees:.???Normal pain-free range of motion without tenderness, swelling, increased warmth or erythema.? Crepitance is noted bilaterally Ankles:.??Normal pain-free range of motion without tenderness, swelling, increased warmth or erythema. Feet:.??Normal pain-free range of motion without tenderness, swelling, increased warmth or erythema. Tender points:??Tenderness to digital palpation of the occiput and trapezius. Results Reviewed Results Reviewed: XR Bilateral Hips 02/2024 FINDINGS: No fracture identified. Alignment is anatomic. Hip joint space appears maintained. Soft tissues appear unremarkable. FINDINGS: No fracture. Alignment is anatomic. Hip joint space is maintained. Soft tissues are unremarkable. Increase sclerotic margin of the upper pole of the acetabulum consistent with osteoarthritis bilateral hips. Osteophytes also seen. No erosions noted. (my read) XR SI joints 02/2024 FINDINGS: Bones and soft tissues appear unremarkable. No fracture identified. Alignment is anatomic. Sacroiliac joint spaces appear well-maintained, without erosions or surrounding sclerosis. Laboratory Tests 02/21/24 14:46 WBC 7.2 RBC 5.07 Hgb 14.0 Hct 43.5 Plt Count 279 ESR 19 Sodium 142 Potassium 4.8 Chloride 108 Carbon Dioxide 28 BUN 16 Creatinine 0.98 C-Reactive Protein 0.41 25-OH Vitamin D Total 42.7 Laboratory Tests 10/12/21 07/10/23 02/21/24 12:01 11:11 14:46 Rheumatoid Factor < 15.0 Cycl Citrul Peptide IgG <16 ADELA Screen NEGATIVE SS-A/Ro Antibody <1.0 NEG SS-B/La Antibody <1.0 NEG Double Strand DNA Ab <1 1 Complement C3 157 Complement C4 29 HLA-B27 Negative Assessment & Plan Assessment & Plan (1) Osteoarthritis involving multiple joints on both sides of body: Code(s): M15.9 - Polyosteoarthritis, unspecified Category: Medical Plan: #Polyarticular OA Patient with polyarticular OA involving the hips, back unlikely knees as well as 1st CMC joint. Discussed the diagnosis of osteoarthritis and that this is not curable. No suspicion for autoimmune disease such as rheumatoid arthritis, lupus or ankylosing spondylitis at this time. Normal ESR/CRP. Negative autoimmune serologies. Stop gabapentin as this has not been helpful Plan - Stop gabapentin - Continue flexeril 5mg at night - RTC 6 months or sooner (2) Fibromyalgia: Code(s): M79.7 - Fibromyalgia Category: Medical Plan: #Fibromyalgia Patient with fibromyalgia Pamphlet given Unable to take NSAIDs due to history of vWD Encourage light exercise as tolerated (3) Discoid lupus: Comment: scalp involvement Code(s): L93.0 - Discoid lupus erythematosus Category: Medical Plan: #Discoid Lupus Patient with discoid lupus without evidence of systemic involvement. ADELA negative. Currently in remission. (4) Trochanteric bursitis, right hip: Code(s): M70.61 - Trochanteric bursitis, right hip Category: Medical Plan: #Right greater trochanteric bursitis Improved status post injection. Stretches given Plan I spent 20 minutes reviewing the record and labs, seeing the patient, discussing the treatment plan and documenting in the medical record Coding Level of Care Code Est Pt Level 3 (23207) Diagnoses Osteoarthritis involving multiple joints on both sides of body M15.9 Fibromyalgia M79.7 Discoid lupus L93.0 Trochanteric bursitis, right hip M70.61
[2024-07-15 12:47] VITALS: BP 130/74; PULSE 68; O2SAT 99; BMI 25.8
--- OUTSIDE RECORDS SUMMARY | 2024-07-15 15:19 | XMS_ITS | Clinical Summary ---
Author Organization [facility] Address [address] [place] [address] Care Team Providers Care Liquor Blender Name Role Phone Adela Kwan Primary Care Provider [phone] Allergies Active Allergy Reactions Criticality Noted Date Comments Aspirin Unknown Ciprofloxacin Rash Penicillins Rash Sulfa (Sulfonamide Antibiotics) Rash Medications tretinoin (RETIN-A) 0.025 % cream APPLY SPARINGLY TO AFFECTED AREA(S) ONCE DAILY AT BEDTIME. 6 Active eletriptan (RELPAX) 40 mg tablet Relpax 40 MG Oral Tablet Refills: 0 Active Active acetaminophen 325 mg capsule Tylenol CAPS Refills: 0 Active Active buPROPion SR (WELLBUTRIN SR) 150 mg tablet Wellbutrin SR 150 MG Oral Tablet Extended Release 12 Hour Refills: 0 Active Active clonazePAM (KlonoPIN) 2 mg tablet KlonoPIN TABS Refills: 0 Active Active metoprolol succinate XL (TOPROL XL) 50 mg tablet Metoprolol Succinate ER 50 MG Oral Tablet Extended Release 24 Hour Refills: 0 Active Active dextroamphetamin e-amphetamine 20 mg tablet Take 20 mg by mouth daily. Active clindamycin (CLEOCIN T) 1 % lotionIndication s:Folliculitis Apply topically to the affected area daily. 60 mL 2 0 Active hydrocortisone 2.5% creamIndications :Discoid lupus Apply up to twice daily as needed for rash/itch on face or skin folds for up to two weeks. 30 g 2 1 Active lidocaine-priloc nilda (EMLA) creamIndications :Discoid lupus 1-2 hours before dermatology appointment apply a thick layer to patches on scalp and surrounding area. 30 g 1 1 Active ketoconazole (NIZORAL) 2% shampooIndicatio ns:Hair thinning APPLY TO SCALP 2-3 TIMES PER WEEK. LET SIT 3-5 MINUTES, THEN RINSE OFF. 120 mL 11 1 Active amLODIPine (NORVASC) 2.5 mg tablet 3 Active dicyclomine (BENTYL) 20 mg tablet 3 Active cholestyramine-s ucrose (QUESTRAN) 4 gram packet [address] (CYMBALTA) 60 mg capsule SMARTSI Capsule(s) By Mouth Every Morning 3 Active predniSONE (DELTASONE) 20 mg tablet 3 Active aluminum chloride (DRYSOL) 20 % external solutionIndicati ons:Bromhidrosis Apply topically to the affected area nightly. 37.5 mL 1 3 Active chlorhexidine (HIBICLENS) 4% external liquidIndication s:Bromhidrosis Apply daily in shower to armpits 960 mL 11 3 Active betamethasone dipropionate 0.05 % lotionIndication s:Discoid lupus Apply up to twice daily as needed for rash/itch on scalp. Do not apply to face/groin/skin folds. 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 Family History Medical History Relation Name Comments Other Brother 1 Family history of Anxiety and depression Other Brother 2 Family History of skin cancer Other Daughter Family history of Anxiety and depression Other Father Family History of thyroid disease Other Mother Family History of hypertension /Family history of Anxiety and depression /Family History of skin cancer Relation Name Status Comments Brother 1 Brother 2 Daughter Father Mother Social History Tobacco Use Types Packs/Day Years Used Date Smoking Tobacco: Never Smokeless Tobacco: Never Tobacco Cessation:Counseling Given: Not Answered Comments:: Alcohol Use Standard Drinks/Week Comments No 0 (1 standard drink = 0.6 oz pur e alcohol) Comments Unknown Sex and Gender Information Value Date Recorded Sex Assigned at Not on file Legal Sex Female 7:01 PM EDT Gender Identity Female Sexual Orientation Not on file Last Filed Vital Signs Vital Sign Reading Time Taken Comments Blood Pressure 117/82 06/26/2018 1:08 PM EST Pulse 64 05/31/2016 2:27 PM EST Temperature - - Respiratory Rate - - Oxygen Saturation - - Inhaled Oxygen Concentration - - Weight 72.6 kg (160 lb) 10/03/2021 2:28 PM EDT Height 162.6 cm (5' 4 ) 10/03/2021 2:28 PM EDT Body Mass Index 27.46 10/03/2021 2:28 PM EDT Plan of Treatment Health Maintenance Due Date Last Done Comments Cologuard 1965 FOBT / Fit Test 1965 HIV Screening 1965 HPV and Pap Smear 1965 Sigmoidoscopy 1965 Hepatitis B Vaccines (1 of 3 - 19+ 3-dose series) 1984 Pneumococcal Vaccine: 50+ Ye ars (1 of 1 - PCV) 09/09/2015 Zoster Vaccines (1 of 2) 09/09/2015 Mammogram 09/14/2018 09/14/2016, 08/19, 08/28/2014, Additional history exists Cervical Cancer Screening 09/30/2019 Pap Smear 09/30/2019 09/29/2016 DTaP,Tdap,and Td Vaccines (2 - Td or Tdap) 06/19/2021 06/19/2011 COVID-19 Vaccine (2 - 2023-2 5 season) 2024 12/29/2020 Influenza Vaccine (#1) 2024 Alcohol/Substance Use Screening 05/21/2024 Depression Screening and Follow-Up 05/21/2024 Social Drivers of Health Joann ual Screening 05/21/2024 Colon Cancer Screening 01/13/2026 Colonoscopy 01/13/2026 01/14/2016, 01/14/2016 RSV Vaccine (60+ years old a nd patients) (1 - 1-dose 75+ series) 2040 Hepatitis C Screening Completed 07/31/2016 Procedures * Due to [place] state law, this organization might not be sharing negative HIV tests. Procedure Name Priority Date/Time Associated Diagnosis Comments HEPATITIS PANEL, ACUTE Routine 07/31/2016 3:25 PM EDT from Last 3 Months or Most Recently Relevant to Health Maintenance Results * Due to [place] law, this organization might not be sharing negative HIV tests. * (ABNORMAL) Hepatitis Panel, Acute (07/31/2016 3:25 PM EDT) Hepatitis A IgM NON-REACT MARLEN NON-REACT MARLEN [facility] [place] Hepatitis B Surface Antigen NON-REACT MARLEN NON-REACT MAR[facility] [place] Hepatitis B Core Antibody NON-REACT MARLEN NON-REACT [facility] [place] Hepatitis C Antibody REACTIVE( H) NON-REACT MARLEN [facility] [place] Signal To Cut-Off 2.08(H) <1.00 QU EST [place] Comment: Following CDC recommendations (MMWR No. 62, 2013), this patient's HCV Antibody Reactive sample will be tested for the presence of HCV RNA by a Nucleic Acid Amplification Test (NAAT) to determine if the patient has an active HCV infection. 07/31/2016 3:25 PM EDT 07/31/2016 5:12 PM EDT Kelli Rojas MD LAB BLOOD ORDERABLES Final Re sult [facility] [address] [facility] [address] Floor, [place] [address], [place] [phone] from Last 3 Months or Most Recently Relevant to Health Maintenance [facility] Care Teams Liquor Blender Relationship Specialty Start Date End Date Adela Kwan [address] [place] [address] PCP - General 12/07/16
--- OUTSIDE RECORDS SUMMARY | 2024-07-15 15:19 | XMS_ITS | Referral Summary ---
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 Procedure Name Priority Date/Time Associated Diagnosis Comments HEPATITIS PANEL, ACUTE Routine 07/31/2016 3:25 PM EDT from Last 3 Months or Most Recently Relevant to Health Maintenance Results * Due to [place] [employer] law, this organization might not be sharing negative HIV tests. * (ABNORMAL) Hepatitis Panel, Acute (07/31/2016 3:25 PM EDT) Hepatitis A IgM NON-REACT MARLEN NON-REACT MARLEN [facility] [place] Hepatitis B Surface Antigen NON-REACT MARLEN NON-REACT MARLEN [facility] [place] Hepatitis B Core Antibody NON-REACT MARLEN NON-REACT MARLEN [facility] [place] Hepatitis C Antibody REACTIVE( H) NON-REACT MARLEN [facility] [place] Signal To Cut-Off 2.08(H) <1.00 QU EST [place] Comment: Following CDC recommendations (MMWR No. 62, 2013), this patient's HCV Antibody Reactive sample will be tested for the presence of HCV RNA by a Nucleic Acid Amplification Test (NAAT) to determine if the patient has an active HCV infection. 07/31/2016 3:25 PM EDT 07/31/2016 5:12 PM EDT Kelli Rojas MD LAB BLOOD ORDERABLES Final Re sult [facility] [address] [place] [address] [address] Floor, [place] [address], [place] [phone] from Last 3 Months or Most Recently Relevant to Health Maintenance Insurance MEDICARE [facility] Care Teams Liner Roll Changer Relationship Specialty Start Date End Date Adela Kwan [address] [place] [address] [place] [address] PCP - General 12/07/16
== END 2024-07-15 13:07 | disposition home or self-care (01) ==
LOC: HO.RHE 12:38
PROVIDERS: PCP Internal Medicine; Visit Provider Student in an Organized Health Care Education/Training Program
DX: M15.9 Polyosteoarthritis, unspecified (principal); M79.7 Fibromyalgia; L93.0 Discoid lupus erythematosus; M70.61 Trochanteric bursitis, right hip
CPT/HCPCS: 99213

== ENCOUNTER → 2024-07-15 12:38 | Outpatient (BNVA) | payer OTHER, SELFPAY | PROVIDERS: PCP Internal Medicine; Visit Provider Student in an Organized Health Care Education/Training Program | DX: M70.61 Trochanteric bursitis, right hip (principal); M15.9 Polyosteoarthritis, unspecified; M79.7 Fibromyalgia; I10 Essential (primary) hypertension; L93.0 Discoid lupus erythematosus | CPT/HCPCS: 99212 ==

== ENCOUNTER 2024-07-25 11:44 | Outpatient (AMB) | payer MEDICARE, SELFPAY ==
[2024-07-25 11:45] VITALS: BP 174/74; PULSE 71; RESP 16; O2SAT 99; BMI 25.8
--- NOTE | 2024-07-25 11:45 | MHC.OFFVIS ---
Vital Signs 07/25/24 11:45 Height 5 ft 4 in Weight 150 lb 6 oz BMI 25.8 BP 174/74 H Blood Pressure Location Lt brachial Position Sitting Respiration 16 Pulse 71 Pulse Source Pulse Oximeter Pulse Oximetry (%) 99 Oxygen Delivery Method Room Air Intake Visit Reasons: Follow Up After PT Spindle Carver Required: Yes Spindle Carver Services: Spindle Carver Offered & Declined Spindle Carver Name: Cousin Allergies ciprofloxacin [From CIPRO] Allergy (Intermediate, Verified 07/25/24 11:49) RASH penicillin G [Penicillin G] Allergy (Mild, Verified 07/25/24 11:49) RASH Sulfa (Sulfonamide Antibiotics) [Sulfa (Sulfonamides)] Allergy (Mild, Verified 07/25/24 11:49) RASH aspirin [Aspirin] Adverse Reaction (Mild, Verified 07/25/24 11:49) BLEEDING HPI HPI Follow Up After PT: Details: History of Present Illness The patient is a 58-year-old female presenting with low back pain. She has lumbar facet hypertrophy with associated arthritis, primarily affecting the right side at L4-5, leading to axial low back pain. Her previous trial of physical therapy provided limited relief. The patient continues to have significant pain, particularly affecting her mobility, especially in bed. Lidocaine patches provide some relief. Oral medications were largely ineffective in alleviating her symptoms. A potential temporary nerve stimulation procedure has been discussed to address her ongoing pain concerns. Pain Description - Onset and Timing: Chronic low back pain - Quality and Character: Localized pain near the lower back, especially pronounced when in bed - Primary Location: Right side of the lumbar spine, L4-5 level - Areas of Radiation: None specifically mentioned - Exacerbating Factors: Movement, particularly in bed - Relieving Factors: Lidocaine patches, limited relief - Interference with Activities: Difficulty with mobility, requires assistance for certain movements Physical Exam Results - Imaging: Significant lumbar facet hypertrophy and arthritis, more pronounced on the right side at L4-5. Pain Management - Affect: The pain significantly impacts her ability to perform daily activities, especially concerning mobility in bed. - Analgesia: Current use of lidocaine patches with partial relief. Oral medications (acetaminophen and NSAIDs) have been tried without significant relief. - Adverse Effects: None reported from current pain management strategies. - Activities of Daily Living: The pain limits her mobility, particularly in bed. - Aberrant Drug-Related Behaviors: None reported or observed. P [facility] Medical History (Updated 07/28/24 @ 12:28 by Roman Braxton MD) Osteoarthritis involving multiple joints on both sides of body Fibromyalgia Von Willebrand disease Trochanteric bursitis, right hip Elbow pain, left Polyarthralgia Diarrhea following gastrointestinal surgery Discoid lupus Foot callus Essential hypertension Joint pain Thoracic spine pain Breast pain, left Physical exam Diarrhea Screen for colon cancer Mild recurrent major depression DANII (generalized anxiety disorder) IBS (irritable bowel syndrome) Hordeolum externum left upper eyelid Right elbow pain Cholecystectomy planned Insomnia Depression Attention deficit Anxiety Hypertension Surgical History Tubal ligation status History of left salpingo-oophorectomy History of episiotomy Hx laparoscopic cholecystectomy H/O wrist surgery Hx of breast reduction, elective Family History Father Depressed Family history of thyroid problem Stroke Mother High blood pressure Kidney problem Arthritis Social History Household Members: Family Housing: House Alcohol intake: current Alcohol intake frequency: holidays/special occasions only Alcohol type: wine and hard liquor Patient Tobacco Use Status: Never used Tobacco e-Cigarette/Vaping Use: Never Used Second Hand Smoke Exposure: Yes service: No Current occupational status: employed Current occupational exposures/hazards: No Cognitive needs: No Hearing needs: No Vision needs: Yes Physical Exam Vital Signs: Last Vital Signs Pulse 71 07/25/24 11:45 Resp 16 07/25/24 11:45 BP 174/74 H 07/25/24 11:45 Pulse Ox 99 07/25/24 11:45 Oxygen Delivery Method Room Air 07/25/24 11:45 BMI result Body Mass Index 25.8 Assessment & Plan Assessment & Plan (1) Lumbar spondylosis: Code(s): M47.816 - Spondylosis without myelopathy or radiculopathy, lumbar region Category: Medical (2) Dysfunction of the multifidus muscle of lumbar region: Code(s): M62.85 - Dysfunction of the multifidus muscles, lumbar region Category: Medical Plan natacha To address lumbar facet hypertrophy with its resulting axial low back pain, we plan to perform a temporary nerve stimulation procedure targeting the L3 medial branch supplying the L4-5 facet joint. This was discussed with the patient as a therapeutic option following inadequate relief from physical therapy and topical/oral medications. The patient will receive DDAVP from her customer service professional before the procedure due to her hematological needs. We will secure insurance authorization and coordinate scheduling. Patient was informed and verbally consented to the use of an ambient scribe for clinic note documentation during this visit. Discussion Notes During this visit, I revisited the patient's lumbar facet hypertrophy with associated arthritis and axial low back pain, highlighting the significant pain she is experiencing. We explored a temporary nerve stimulation procedure that could potentially provide relief for 6 to 10 months. I assured the patient there are minimal risks concerning the procedure, emphasizing that it is a safe, non-permanent intervention with no reported adverse effects. The patient consented to proceed, and I outlined the necessity of receiving DDAVP due to her specific hematological requirements before the procedure. We discussed scheduling and agreed to coordinate with her customer service professional for the necessary pre-procedure medication. Patient Instructions - Coordinate with your customer service professional to receive DDAVP prior to the nerve stimulation procedure. - Continue using lidocaine patches as needed for pain relief. - We will contact you with the date for the procedure after obtaining insurance authorization. - Refrain from using a pool or bathtub while using the device once placed. Coding Level of Care Code Est Pt Level 4 (07824) Diagnoses Lumbar spondylosis M47.816 Dysfunction of the multifidus muscle of lumbar region M62.85
--- OUTSIDE RECORDS SUMMARY | 2024-07-25 13:39 | XMS_ITS | Referral Summary ---
Author Organization [facility] Address [address] [place] [address] Care Team Providers Care Scoop Operator Name Role Phone Adela Kwan Primary Care Provider [phone] Allergies Active Allergy Reactions Criticality Noted Date [...] Not on file Procedures * Due to [place] [employer] law, this organization might not be sharing negative HIV tests. Procedure Name Priority Date/Time Associated Diagnosis Comments HEPATITIS PANEL, ACUTE Routine 07/31/2016 3:25 PM EDT from Last 3 Months or Most Recently Relevant to Health Maintenance Results * Due to [place] [employer] law, this organization might not be sharing negative HIV tests. * (ABNORMAL) Hepatitis Panel, Acute (07/31/2016 3:25 PM EDT) Hepatitis A IgM NON-REACT MARLEN NON-REACT MARLEN [facility] Hepatitis B Surface Antigen NON-REACT MARLEN NON-REACT MARLEN [facility] Hepatitis B Core Antibody NON-REACT MARLEN NON-REACT MARLEN [facility] Hepatitis C Antibody REACTIVE( H) NON-REACT MARLEN [facility] Signal To Cut-Off 2.08(H) <1.00 QU EST [facility] Comment: Following CDC recommendations (MMWR No. 62, 2013), this patient's HCV Antibody Reactive sample will be tested for the presence of HCV RNA by a Nucleic Acid Amplification Test (NAAT) to determine if the patient has an active HCV infection. 07/31/2016 3:25 PM EDT 07/31/2016 5:12 PM EDT Kelli Rojas MD LAB BLOOD ORDERABLES Final Re sult [facility] [address] [place] [address] [address], [place] [address], [place] [phone] from Last 3 Months or Most Recently Relevant to Health Maintenance Insurance MEDICARE [facility] Care Teams Scoop Operator Relationship Specialty Start Date End Date Adela Kwan [address] [place] [address] [place] [address] PCP - General 12/07/16
--- OUTSIDE RECORDS SUMMARY | 2024-07-25 13:39 | XMS_ITS | Clinical Summary ---
Author Organization [facility] Address [address] [place] [address] Care Team Providers Care Fitting Room Supervisor Name Role Phone Adela Kwan Primary Care Provider [phone] Allergies Active Allergy Reactions Criticality Noted Date [...] HPV and Pap Smear 1965 Sigmoidoscopy 1965 Medicare AWV 1966 Hepatitis B Vaccines (1 of 3 - [...] Health Maintenance Results * Due to [place] [employer] law, this organization might not be sharing negative HIV tests. * (ABNORMAL) Hepatitis Panel, Acute (07/31/2016 3:25 PM EDT) Hepatitis A IgM NON-REACT MARLEN NON-REACT MARLEN [facility] [place] Hepatitis B Surface Antigen NON-REACT MARLEN NON-REACT [facility]LEN [facility] [place] Hepatitis B Core Antibody NON-REACT MARLEN NON-REACT MARLEN [facility] [place] Hepatitis C Antibody REACTIVE( H) NON-REACT MARLEN [facility] [place] Signal To Cut-Off 2.08(H) <1.00 QU EST [place] Comment: Following CDC recommendations (MMWR No. 62, 2013), this patient's HCV Antibody Reactive sample will be tested for the presence of HCV RNA by a Nucleic Acid Amplification Test (NAAT) to determine if the patient has an active HCV infection. 07/31/2016 3:25 PM EDT 07/31/2016 5:12 PM EDT Kelli Rojas MD LAB BLOOD ORDERABLES Final Re sult [facility] [address] [facility] [address]rd Floor, [place] [address], [place] [phone] from Last 3 Months or Most Recently Relevant to Health Maintenance [facility] Care Teams Fitting Room Supervisor Relationship Specialty Start Date End Date Adela Kwan [address] [facility] [place] [address] PCP - General 12/07/16
== END 2024-07-25 12:17 | disposition home or self-care (01) ==
PROVIDERS: PCP Internal Medicine; Visit Provider Internal Medicine
DX: M47.816 Spondylosis without myelopathy or radiculopathy, lumbar region (principal); M62.85 Dysfunction of the multifidus muscles, lumbar region
CPT/HCPCS: 99214

== ENCOUNTER → 2024-07-25 11:44 | Outpatient (BNVA) | payer MEDICARE, SELFPAY | PROVIDERS: PCP Internal Medicine; Visit Provider Internal Medicine | DX: M47.816 Spondylosis without myelopathy or radiculopathy, lumbar region (principal); M62.85 Dysfunction of the multifidus muscles, lumbar region | CPT/HCPCS: 99212 ==

== ENCOUNTER 2024-08-26 15:09 | Outpatient (AMB) | payer MEDICARE, SELFPAY ==
[2024-08-26 15:16] VITALS: BP 148/90; BMI 25.2
--- NOTE | 2024-08-26 15:16 | MHC.PC.OV ---
Vital Signs 08/26/24 15:16 Height 5 ft 4 in Weight 147 lb BMI 25.2 BP 148/90 H Blood Pressure Location Lt brachial Position Sitting Intake Visit Reasons: Annual Exam Intake Note: Patient here for an annual physical exam, c/o left foot toe pain, frequent headaches Bell Staff Required: No Accompanied by: Self / Same As Patient Allergies ciprofloxacin [From CIPRO] Allergy (Intermediate, Verified 08/26/24 15:48) RASH penicillin G [Penicillin G] Allergy (Mild, Verified 08/26/24 15:48) RASH Sulfa (Sulfonamide Antibiotics) [Sulfa (Sulfonamides)] Allergy (Mild, Verified 08/26/24 15:48) RASH aspirin [Aspirin] Adverse Reaction (Mild, Verified 08/26/24 15:48) BLEEDING Medication List - Last Reconciled 08/26/24 by Adela Lopez MD albuterol sulfate 90 mcg/actuation (Ventolin HFA) 1 inh inhalation QID PRN amlodipine 2.5 mg PO DAILY 90 days ascorbic acid (vitamin C) (Vitamin C) 500 mg PO DAILY betamethasone dipropionate 0.05% 1 appl topical DAILY 30 days cetirizine (Zyrtec) 10 mg PO DAILY PRN cholecalciferol (vitamin D3) 25 mcg PO DAILY cholestyramine (with sugar) 4 gram (Questran) 4 grams PO BID PRN 30 days clonazepam 2 mg PO BID cyclobenzaprine 5 mg PO BEDTIME dextroamphetamine-amphetamine 10 mg (Adderall) 10 mg PO DAILY dicyclomine 20 mg PO QID duloxetine 60 mg PO DAILY incontinence pad, liner, disp Use 3 pads per day metoprolol succinate ER 50 mg PO DAILY polyethylene glycol 3350 (Miralax) 17 grams PO DAILY vilazodone 10 mg PO DAILY [wipes As directed] zinc 50 mg PO DAILY Tobacco use date assessed: 08/26/24 Dental Screening Dental Screen Date: 08/26/24 Did you have a dental visit in the last 12 months?: No Did you have a dental problem in the last 6 months where you did not have access to dental care?: No Was dental information given to patient?: Patient has dentist HPI HPI Comments History of Present Illness Details The patient is a 58-year-old female presenting for a physical examination and vaccine check. She reports a history of essential hypertension controlled with medications, though today's reading was 142 mmHg. She experiences frequent headaches, possibly related to persisting back pain. She attributes part of her symptoms to her history of discoid lupus and is receiving rheumatological care. She has undergone a right oophorectomy and breast reduction. The patient uses cannabis to aid sleep and alleviate pain but notes dehydration and lethargy as side effects. She is allergic to penicillin, aspirin, and cephalosporins and follows a comprehensive medication regimen including amlodipine and clonazepam. Her recent colonoscopy was clear, and she plans a mammogram for later this month. - Tetanus vaccine is due and offered today. - Recent colonoscopy in 2021, with the next screening due in 2031. - Mammography scheduled for the of this month. - Advised on monitoring blood pressure given slight elevation today. - Discussed side effects of cannabis and cautioned on its use. [facility] Medical History Osteoarthritis involving multiple joints on both sides of body Fibromyalgia Von Willebrand disease Trochanteric bursitis, right hip Elbow pain, left Polyarthralgia Diarrhea following gastrointestinal surgery Discoid lupus Foot callus Essential hypertension Joint pain Thoracic spine pain Breast pain, left Physical exam Diarrhea Screen for colon cancer Mild recurrent major depression DANII (generalized anxiety disorder) IBS (irritable bowel syndrome) Hordeolum externum left upper eyelid Right elbow pain Cholecystectomy planned Insomnia Depression Attention deficit Anxiety Hypertension Surgical History Tubal ligation status History of left salpingo-oophorectomy History of episiotomy Hx laparoscopic cholecystectomy H/O wrist surgery Hx of breast reduction, elective Family History Father Depressed Family history of thyroid problem Stroke Mother High blood pressure Kidney problem Arthritis Social History Household Members: Family Housing: House Alcohol intake: current Alcohol intake frequency: holidays/special occasions only Alcohol type: wine and hard liquor Patient Tobacco Use Status: Never used Tobacco e-Cigarette/Vaping Use: Never Used Second Hand Smoke Exposure: Yes service: No Current occupational status: employed Current occupational exposures/hazards: No Cognitive needs: No Hearing needs: No Vision needs: Yes Questionnaire PHQ-9 Over the last 2 weeks, how often have you been bothered by any of the following problems? 1. Little interest or pleasure in doing things: several days 2. Feeling down, depressed, or hopeless: more than half the days 3. Trouble falling or staying asleep, or sleeping too much: not at all 4. Feeling tired or having little energy: several days 5. Poor appetite or overeating: several days 6. Feeling bad about yourself - or that you are a failure or have let yourself or your family down: several days 7. Trouble concentrating on things, such as reading the newspaper or watching television: several days 8. Moving or speaking so slowly that other people could have noticed. Or the opposite - being so fidgety or restless that you have been moving around a lot more than usual: several days 9. Thoughts that you would be better off or of hurting yourself in some way: not at all Total score: 8 Depression Screening Interpretation: Positive (no suicidal thoughts) Depression Screening Follow-up: Existing condition, In treatment, Community Mental Health Worker F/U and Follow-up Visit Requested Depression Screening Done: Yes 22603 - PHQ-9 Billing: Yes Source: Developed by Drs. Tray Sood, Safia Sy, Pardeep Egan and colleagues, with an educational elsie from [email or web address]. Thrive Questionnaire Date Thrive assessed: 08/26/24 I am a: Patient What is your living situation today?: I have a steady place to live Within the past 12 months, did the food you bought not last and you didn't have the money to get more?: Never true Within the past 12 months, did you worry whether your food would run out before you got money to buy more?: Never true Do you have trouble paying for medicines?: No Do you have trouble getting transportation to medical appointments?: No Do you have trouble paying your heating and electricity bill?: No Do you have trouble taking care of your child, family member or friend?: No Do you have trouble with day-to-day activities such as bathing, preparing meals, shopping, managing finances, etc.?: No Are you currently unemployed and looking for a job?: No Are you interested in more education?: No Please select the resources that you would like help with: None Currently or been in a relationship where the following occur: No concerns reported THRIVE Score: 0 DANII-7 AMB Questionnaire DANII-7 Date DANII - 7 assessed: 08/26/24 Feeling nervous, anxious, or on edge: 1 = Several days Not being able to stop or control worryin = Not at all Worrying too much about different things: 1 = Several days Trouble relaxin = Several days Being so restless that it is hard to sit still: 0 = Not at all Becoming easily annoyed or irritable: 0 = Not at all Feeling afraid as if something awful might happen: 0 = Not at all Total DANII-7 score (0-4 normal; 5-9 mild; 10-14 moderate; 15-21 severe): 3 Source: Developed by Drs. Tray Sood, Safia Sy, Pardeep Egan and colleagues, with an educational elsie from [email or web address]. Review of Systems Const All systems reviewed & are unremarkable except as noted in HPI and below Card Denies chest pain at rest, Denies chest pain with activity, Denies edema, Denies irregular heart rhythm, Denies claudication, Denies dyspnea, Denies dyspnea on exertion, Denies orthopnea, Denies paroxysmal nocturnal dyspnea and Denies slow heart rate Resp Denies cough, Denies dyspnea and Denies dyspnea on exertion GI Denies abdominal pain, Denies change in bowel habits, Denies excessive flatus, Denies nausea and Denies vomiting Denies urinary incontinence, Denies urinary hesitancy and Denies urinary urgency Musc Denies abnormal gait, Denies atrophy, Denies deformity and Denies limited range of motion Skin/Breast Denies bleeding lesions, Denies changing lesions and Denies rash Neuro Denies abnormal gait and Denies lack of coordination Physical exam (Primary Care) Vital Signs: Last Vital Signs BP 148/90 H 08/26/24 15:16 BMI result Body Mass Index 25.2 Tobacco/Smoking Status: Tobacco use Status Tobacco use date assessed 08/26/24 08/26/24 15:23 Patient Tobacco Use Status Never used Tobacco 08/26/24 15:23 e-Cigarette/Vaping Use Never Used 08/26/24 15:23 PHQ-9: PHQ-9 Score PHQ-9: Total score 8 08/26/24 15:59 Depression Screening Interpretation: Positive (no suicidal thoughts) Depression Screening Follow-up: Existing condition, In treatment, Community Mental Health Worker F/U and Follow-up Visit Requested Thrive Assessment: Date of Thrive Assessment Date Thrive assessed 08/26/24 08/26/24 15:23 Currently or been in a relationship where the following occur: No concerns reported HENMT Head: Yes normal to inspection, Yes normocephalic and Yes atraumatic Ears: external ears normal Eyes General: appearance normal, both eyes and all related structures Eyelids: Yes eyelids normal Conjunctivae: conjunctivae normal Neck Neck: Yes normal visual inspection and Yes supple Resp Effort & Inspection: normal respiratory effort Auscultation: clear to auscultation bilaterally Cardio Jugular venous distension: no JVD Rate: regular rate Rhythm: regular rhythm Heart sounds: S1 normal heart sound present and S2 normal heart sound present GI Inspection: Yes normal to inspection Palpation (GI): Soft to palpation and nontender Auscultation: normal bowel sounds Skin General skin exam: no rashes or lesions noted Neuro General: no focal motor deficits Extrem General: Yes full ROM Psych Appearance: grossly normal Immunizations Boostrix Tdap 2.5 Lf unit-8 mcg-5 Lf/0.5 mL intramuscular syringe Performing Provider: Adela Lopez MD [facility] Administered by: BRITTANY Irving on 08/26/24 16:06 Dose Route Admin Location Dispensed Lot Number Expiration Date NDC Customer Experience Analyst 0.5 mL IM Left Deltoid 0.5 mL [id number] 11/28/26 [id number] [facility] VIS Given Date VIS Provided VIS Publication Date 08/26/24 Single Vaccine 24 Eligibility Eligibility Date Funding Source Not [facility] Eligible 08/26/24 Private Coding Level of Care Code Est Pt Prev Care 40-64y(41408) Diagnoses Physical exam Z00.00 Mild recurrent major depression F33.0 Additional Codes PHQ-9 - 42122 - PHQ-9 Billing: Yes ([id number]) Time Spent (min) 33 Assessment & Plan Assessment & Plan (1) Physical exam: Code(s): Z00.00 - Encounter for general adult medical examination without abnormal findings Category: Medical (2) Mild recurrent major depression: Code(s): F33.0 - Major depressive disorder, recurrent, mild Category: Medical Plan I administered the tetanus vaccine to bring her up to date on immunizations. Her hypertension is managed with amlodipine, and current medication adherence is encouraged. The ingrown toenail requires antibiotics for which a prescription is given. She is aware of her cannabis-associated symptoms and is advised on limiting use during daytime. Scheduled fasting labs will contribute to monitoring her cholesterol and overall health status. She is advised to continue rheumatology follow-ups for lupus management. Patient was informed and verbally consented to the use of an ambient scribe for clinic note documentation during this visit. We discussed her current health status, including the necessity of a tetanus booster today. I emphasized the importance of blood pressure control and guided her on managing her cannabis use for pain and sleep issues. I advised the patient on the need for antibiotic treatment for her ingrown toenail. Reassured about the normal colonoscopy and anticipated her mammogram appointment. We talked about the side effects of cannabis and reinforced medication compliance for hypertension and rheumatology care. She acknowledged understanding and agreed to the plans we discussed for her ongoing care. Orders: Orders TDaP Immunization Today Z23 - Encounter for immunization Vitamin D 25-OH Total Today E55.9 - Vitamin D deficiency, unspecified Lipid Panel Today E78.5 - Hyperlipidemia, unspecified Comprehensive [place]. Panel Fast Today Z00.00 - Encounter for general adult medical examination without abnormal findings Medications: New doxycycline hyclate 100 mg PO BID 7 days 14 tabs 0RF Patient Instructions: - Receive the tetanus vaccine today. - Continue taking prescribed blood pressure medication as directed. - Follow the antibiotic regimen for the ingrown toenail. - Utilize cannabis cautiously and avoid using it during the daytime to prevent lethargy. - Attend the mammogram appointment on the . - Complete fasting laboratory tests as discussed. - Follow up with rheumatology as scheduled for lupus management.
--- OUTSIDE RECORDS SUMMARY | 2024-08-26 18:11 | XMS_ITS | Patient Health Record ---
Author Organization [facility] Address [address] [place] [address] Care Team Providers Care Post Manager Name Role Phone Adela Kwan Primary Care Provider Shine Abbott Jr Unavailable Allergies Allergen (clinical drug ingredient) Drug/Non Drug Allergy documented on EMR Reaction Allergy Type Onset Date Status Sulfa Unknown Drug Allergy Active Penicillin Unknown Drug Allergy Active ciprofloxacin Cipro Unknown Drug Allergy Act oleksandr aspirin Aspirin Unknown Drug Allergy Active Reason For Referral No Information Medications Medication SIG (Take, Route, Frequency, Duration) Notes Start Date End Date Status Vitamin C 500 MG as directed Orally Active Fluocinolone Oint & Emollient 0.025 % as directed Externally Active Adderall 10 MG 1 tablet in the morning Orally Once a day/as needed Active Zinc 50 MG 1 tablet Orally Once a day for 30 day(s) Active Wellbutrin SR 200 MG 1 tablet Orally Twice a day Active Ambien 10 MG 1 tablet at bedtime as needed Orally Once a day Active Golytely 236 GM as directed before colonoscopy Orally every 15 minutes for 1 day(s) 04/09/2019 Active Cymbalta 30 MG 1 capsule Orally Once a day for 30 day(s) Active Dicyclomine HCl 20 MG TAKE 1 TABLET BY MOUTH 2-4 TIMES DAILY for 90 Ivet needs to call and schedule a followup office visit. Active Betamethasone Dipropionate 0.05 % 1 application Externally Once a day Active Tranexamic Acid 650 MG 2 tablets Orally Three times a day/ as needed Active amLODIPine Besy-Benazepril HCl 2.5-10 MG as directed Orally Active Cholestyramine Activ e ZzzQuil 25 MG 1 capsule at bedtime as needed Orally Once a day for 30 day(s) Active Albuterol Sulfate (2.5 MG/3ML) 0.083% 3 ml Inhalation Three times a day/as needed Active tylenol 1 tab Oral for 14 days Active Stimate 1.5 MG/ML as directed Nasally as needed Active Vitamin D-3 125 MCG (5000 UT) as directed Orally Active clonazePAM 2 MG 1 tablet Orally Twice a day Active Vitamin B-1 250 MG as directed Orally Active Relpax 40 MG 1 tablet as needed one time Orally Once a day Active Metoprolol Succinate ER 50 MG 1 tablet Orally Once a day Active Immunizations Vaccine Route Administration Date Status Comme nts Influenza Unknown 02/02/2022 Refused Problems Problem Type SNOMED Code ICD Code Onset Dates Problem Status W/U Status Risk Notes Problem 103875261 Colon cancer screening (Z12.11) Active confirmed Problem 61065701 Rectal bleeding (K62.5) Active confirmed Problem 237883678 Irritable bowel syndrome with diarrhea (K58.0) Active confirmed Problem 06696879 Irritable bowel syndrome with both constipation and diarrhea (K58.2) Active confirmed Problem 569042154 Von Willebrands disease (D68.0) Active confirmed Plan Of Treatment Future Test Test Name Order Date COLONOSCOPY 10/07/2015 COLONOSCOPY 04/09/2019 Insurance Providers Payer Name Payer Address Payer Phone Subscriber Number Group Number Insured Name Patient Relationship to Insured Coverage Start Date Coverage End Date MEDICARE OF [place] [address] [place] [id number] [id number] IVET LAUREANO Self - patient is the insured MEDICAID OF [facility] [address] [place] [address] [id number] IVET LAUREANO Self - patient is the insured Medical (General) History Medical History History ICD Code allergic disease (SCIT) hypertension Anxiety/depression lupus von willebrands disease IBS, diarrhea predominant Fibromyalgia migraines Surgical History Surgery Date(Month/Year) breast reduction 2000 gallbladder right hand/ Two places cyst 2007 right ovary 2010
--- OUTSIDE RECORDS SUMMARY | 2024-08-26 18:11 | XMS_ITS ---
Author Organization [facility] Address [address] [place] [address] Care Team Providers Care Manager Of Application Development Name Role Phone Adela Kwan Primary Care Provider Unavailab Shine Villarreal Jr Encounters Encounter Location Date Provider Diagnosis [facility] [address] [place] [address] 08/09/2023 Shine Reveles Jr Plan Of Treatment No Information Progress Notes * ABIMAEL LAUREANO JDOB: (57 yo F)Acc No.[id number]:08/09/2023 Patient:?JOSUÉ LAUREANO :1965???Age:57 Y???Sex:Female Address:[address] [place] [address] * true * Date:? Generated for Printi ng/Fatayeg/eTransmitting on:?08/26/2024 06:10 PM EDT
--- OUTSIDE RECORDS SUMMARY | 2024-08-26 18:11 | XMS_ITS | Referral Summary ---
Author Organization [facility] Address [address] [place] [address] Care Team Providers Care Clay Miller Name Role Phone Adela Kwan Primary Care Provider Allergies Active Allergy Reactions Criticality Noted Date [...] Not on file Procedures * Due to [employer] law, this organization might not be sharing negative HIV tests. Procedure Name Priority Date/Time Associated Diagnosis Comments HEPATITIS PANEL, ACUTE Routine 07/31/2016 3:25 PM EDT from Last 3 Months or Most Recently Relevant to Health Maintenance Results * Due to [employer] law, this organization might not be sharing negative HIV tests. * (ABNORMAL) Hepatitis Panel, Acute (07/31/2016 3:25 PM EDT) Hepatitis A IgM NON-REACT MARELN NON-REACT MARLEN [facility] [place] Hepatitis B Surface Antigen NON-REACT MARLEN NON-REACT MARLEN [facility] [place] Hepatitis B Core Antibody NON-REACT MARLEN NON-REACT MARLEN [facility] [place] Hepatitis C Antibody REACTIVE( H) NON-REACT MARLEN [facility] [place] Signal To Cut-Off 2.08(H) <1.00 QU [facility] [place] Comment: Following CDC recommendations (MMWR No. 62, 2013), this patient's HCV Antibody Reactive sample will be tested for the presence of HCV RNA by a Nucleic Acid Amplification Test (NAAT) to determine if the patient has an active HCV infection. 07/31/2016 3:25 PM EDT 07/31/2016 5:12 PM EDT Kelli Rojas MD LAB BLOOD ORDERABLES Final Re sult [facility]ODRIG[facility] [address] [place] [address] [address] Floor, [place] [address], [place] [phone] from Last 3 Months or Most Recently Relevant to Health Maintenance Insurance MEDICARE [facility] Care Teams Clay Miller Relationship Specialty Start Date End Date Adela Kwan [address] [place] [address] [place] [address] PCP - General 12/07/16
--- OUTSIDE RECORDS SUMMARY | 2024-08-26 18:11 | XMS_ITS | Clinical Summary ---
Author Organization [facility] Address [address] [place] [address] Care Team Providers Care [employer] Director Name Role Phone Adela Kwan Primary Care Provider [phone] Allergies Active Allergy Reactions Criticality Noted Date [...] (2 - 2023-2 5 season) 2024 12/29/2020 Alcohol/Substance Use Screening 05/21/2024 Depression Screening and Follow-Up 05/21/2024 Social Drivers of Health Joann ual Screening 05/21/2024 Influenza Vaccine (Season Ended) 2025 Colon Cancer Screening 01/13/2026 Colonoscopy 01/13/2026 01/14/2016, 01/14/2016 RSV Vaccine (60+ years old a nd patients) (1 - 1-dose 75+ series) 2040 Hepatitis C Screening Completed 07/31/2016 Procedures * Due to [place] state law, this organization might not be sharing negative HIV tests. Procedure Name Priority Date/Time Associated Diagnosis Comments HEPATITIS PANEL, ACUTE Routine 07/31/2016 3:25 PM EDT from Last 3 Months or Most Recently Relevant to Health Maintenance Results * Due to [place] [employer] law, this organization might not be sharing negative HIV tests. * (ABNORMAL) Hepatitis Panel, Acute (07/31/2016 3:25 PM EDT) Hepatitis A IgM NON-REACT MARLEN NON-REACT MARLEN [facility] [place] Hepatitis B Surface Antigen NON-REACT MARLEN NON-REACT MARLEN [facility] [place] Hepatitis B Core Antibody NON-REACT MARLEN NON-REACT [facility]LEN [facility] [place] Hepatitis C Antibody REACTIVE( H) NON-REACT MARLEN [facility] [place] Signal To Cut-Off 2.08(H) <1.00 QU EST [place] Comment: Following CDC recommendations (MMWR No. 62, 2013), this patient's HCV Antibody Reactive sample will be tested for the presence of HCV RNA by a Nucleic Acid Amplification Test (NAAT) to determine if the patient has an active HCV infection. 07/31/2016 3:25 PM EDT 07/31/2016 5:12 PM EDT Kelli Rojas MD LAB BLOOD ORDERABLES Final Re sult [facility] [address] [facility] 3rd Floor, [place] [address], [place] [phone] from Last 3 Months or Most Recently Relevant to Health Maintenance Insurance [facility] Care Teams [employer] Director Relationship Specialty Start Date End Date Adela Kwan [address] [place] [address] PCP - General 12/07/16
== END 2024-08-26 16:11 | disposition home or self-care (01) ==
LOC: HO.HMCH 15:09
PROVIDERS: PCP Internal Medicine; Visit Provider Internal Medicine
DX: Z00.00 Encounter for general adult medical examination without abnormal findings (principal); F33.0 Major depressive disorder, recurrent, mild; Z23 Encounter for immunization

== ENCOUNTER → 2024-08-26 15:09 | Outpatient (BNVA) | payer OTHER, SELFPAY | PROVIDERS: PCP Internal Medicine; Visit Provider Internal Medicine | DX: Z00.00 Encounter for general adult medical examination without abnormal findings (principal); F33.0 Major depressive disorder, recurrent, mild; E78.5 Hyperlipidemia, unspecified; E55.9 Vitamin D deficiency, unspecified; R51.9 Headache, unspecified; M54.9 Dorsalgia, unspecified; Z23 Encounter for immunization | CPT/HCPCS: 90471; 90715; 96127; 99396 ==

== ENCOUNTER 2025-02-27 12:21 | Outpatient (REF) | payer OTHER, SELFPAY | END 2025-02-27 12:22 | disposition home or self-care (01) | LOC: HO.MAMMO 12:21 | PROVIDERS: PCP Internal Medicine; Visit Provider Internal Medicine | DX: Z12.31 Encounter for screening mammogram for malignant neoplasm of breast (principal) | CPT/HCPCS: 77063; 77067 ==

== ENCOUNTER → 2025-02-27 12:30 | Outpatient (BNV) | payer OTHER, SELFPAY | PROVIDERS: PCP Internal Medicine; Visit Provider Radiology Body Imaging | DX: Z12.31 Encounter for screening mammogram for malignant neoplasm of breast (principal) | CPT/HCPCS: 77063; 77067 ==

== ENCOUNTER 2025-04-19 23:23 | Emergency (ER) | payer OTHER, SELFPAY ==
[2025-04-19 23:28] VITALS: BP 185/85; PULSE 81; RESP 18; TEMP 36.8; O2SAT 98; BMI 27.0
--- OUTSIDE RECORDS SUMMARY | 2025-04-20 01:58 | XMS_ITS | Patient Health Record ---
Author Organization [facility] Address [address] [place] [address] Care Team Providers Care Data Specialist Name Role Phone Adela Kwan Primary Care Provider Shine Abbott Jr Unavailable Allergies Allergen (clinical drug ingredient) Drug/Non Drug Allergy documented on EMR Reaction Allergy Type Onset Date Status aspirin Aspirin Unknown Drug Allergy Active ciprofloxacin Cipro Unknown Drug Allergy Act oleksandr Penicillin Unknown Drug Allergy Active Sulfa Unknown Drug Allergy Active Reason For Referral No Information Medications Medication SIG (Take, Route, Frequency, Duration) Notes Start Date End Date Status Vitamin C 500 MG Capsule as directed Orally Active Fluocinolone Oint & Emollient 0.025 % Kit as directed Externally Active Adderall 10 MG Tablet 1 tablet in the morning Orally Once a day/as needed Active Zinc 50 MG Tablet 1 tablet Orally Once a day; Duration: 30 day(s) Active Wellbutrin SR 200 MG Tablet Extended Release 12 Hour 1 tablet Orally Twice a day Active Ambien 10 MG Tablet 1 tablet at bedtime as needed Orally Once a day Active Golytely 236 GM Solution Reconstituted as directed before colonoscopy Orally every 15 minutes; Duration: 1 day(s) 04/09/2019 Active Cymbalta 30 MG Capsule Delayed Release Particles 1 capsule Orally Once a day; Duration: 30 day(s) Active Dicyclomine HCl 20 MG Tablet TAKE 1 TABLET BY MOUTH 2-4 TIMES DAILY; Duration: 90 Ivet needs to call and schedule a followup office visit. Active Betamethasone Dipropionate 0.05 % Cream 1 application Externally Once a day Active Tranexamic Acid 650 MG Tablet 2 tablets Orally Three times a day/ as needed Active amLODIPine Besy-Benazepril HCl 2.5-10 MG Capsule as directed Orally Acti ve Cholestyramine Activ e ZzzQuil 25 MG Capsule 1 capsule at bedtime as needed Orally Once a day; Duration: 30 day(s) Active Albuterol Sulfate (2.5 MG/3ML) 0.083% Nebulization Solution 3 ml Inhalation Three times a day/as needed Active tylenol 1 tab Oral; Duration: 14 days Active Stimate 1.5 MG/ML Solution as directed Nasally as needed Active Vitamin D-3 125 MCG (5000 UT) Tablet as directed Orally Activ e clonazePAM 2 MG Tablet Disintegrating 1 tablet Orally Twice a day Active Vitamin B-1 250 MG Tablet as directed Orally Active Relpax 40 MG Tablet 1 tablet as needed one time Orally Once a day Active Metoprolol Succinate ER 50 MG Tablet Extended Release 24 Hour 1 tablet Orally Once a day Active Immunizations Vaccine Route Administration Date Status Comme nts Influenza Unknown 02/02/2022 Refused Social History Social History Additional Details Category Social Info Options Details Miscellaneous: Marital status: 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 Problems Problem Type SNOMED Code ICD Code Onset Dates Problem Status W/U Status Risk Notes Problem Colon cancer screening (716493952) Colon cancer screening (Z12.11) Active confirmed Problem Rectal bleeding (59718375) Rectal bleeding (K62.5) Active confirmed Problem Irritable bowel syndrome with diarrhea (364132166) Irritable bowel syndrome with diarrhea (K58.0) Active confirmed Problem Irritable bowel syndrome (49846090) Irritable bowel syndrome with both constipation and diarrhea (K58.2) Active confirmed Problem von Willebrand disorder (677585830) Von Willebrands disease (D68.0) Active confirmed Plan Of Treatment Future Test Test Name Order Date COLONOSCOPY 10/07/2015 COLONOSCOPY 04/09/2019 Insurance Providers Payer Name Payer Address Payer Phone Subscriber Number Group Number Insured Name Patient Relationship to Insured Coverage Start Date Coverage End Date MEDICARE OF [place] [address] [place] [id number] IVET LAUREANO Self - patient is the insured MEDICAID OF [facility] [address] [place] [address] [id number] IVET LAUREANO Self - patient is the insured Medical (General) History Medical History History ICD Code allergic disease (SCIT) hypertension Anxiety/depression lupus von willebrands disease IBS, diarrhea predominant Fibromyalgia migraines Surgical History Surgery Date(Month/Year) breast reduction 2000 gallbladder right hand/ Two places cyst 2007 right ovary 2009
--- OUTSIDE RECORDS SUMMARY | 2025-04-20 01:58 | XMS_ITS | Clinical Summary ---
Author Organization [facility] Address [address] [place] [address] Care Team Providers Care Superintendent Drilling And Production Name Role Phone Adela Kwan Primary Care Provider [phone] Allergies Active Allergy Reactions Criticality Noted Date [...] (2 - Td or Tdap) 06/19/2021 06/19/2011 Alcohol/Substance Use Screening 05/21/2024 Depression Screening and Follow-Up 05/21/2024 Social Drivers of Health Joann ual Screening 05/21/2024 Influenza Vaccine (#1) 2024 COVID-19 Vaccine (2 - 2024-2 6 season) 2025 12/29/2020 Colon Cancer Screening 01/13/2026 Colonoscopy 01/13/2026 01/14/2016, 01/14/2016 Hepatitis C Screening Completed 07/31/2016 Procedures * Due to [place] state law, this organization might not be sharing negative HIV tests. Procedure Name Priority Date/Time Associated Diagnosis Comments HEPATITIS PANEL, ACUTE Routine 07/31/2016 3:25 PM EDT from Last 3 Months or Most Recently Relevant to Health Maintenance Results * Due to [place] state law, this organization might not be sharing negative HIV tests. * (ABNORMAL) Hepatitis Panel, Acute (07/31/2016 3:25 PM EDT) Hepatitis A IgM NON-REACT MARLEN NON-REACT MARLEN [facility] [place] Hepatitis B Surface Antigen NON-REACT MARLEN NON-REACT MARLEN [facility] [place] Hepatitis B Core Antibody NON-REACT MARLEN NON-REACT MARLEN [facility] [place] Hepatitis C Antibody REACTIVE( H) NON-REACT MARLEN [facility] [place] Signal To Cut-Off 2.08(H) <1.00 QU [facility] [place] Comment: Following CDC recommendations (MMWR No. 62, 2013), this patient's HCV Antibody Reactive sample will be tested for the presence of HCV RNA by a Nucleic Acid Amplification Test (NAAT) to determine if the patient has an active HCV infection. 07/31/2016 3:25 PM EDT 07/31/2016 5:12 PM EDT Kelli Rojas MD LAB BLOOD ORDERABLES Final Re sult [facility]IM[facility]RIG[facility] [address], [place] [address], [place] [phone] from Last 3 Months or Most Recently Relevant to Health Maintenance Insurance [facility] Care Teams Superintendent Drilling And Production Relationship Specialty Start Date End Date Adela Kwan [address] [place] [address] [place] [address] PCP - General 12/07/16
--- NOTE | 2025-04-20 03:27 | ED_ITS ---
HPI - Skin/Abscess/Foreign Bdy General Chief complaint: Skin/Abscess/Foreign Body Stated complaint: General Medical Time Seen by Provider: 04/20/25 02:24 Source: patient Mode of arrival: ambulatory Limitations: no limitations History of Present Illness ED Provider: Dr. Belia Quiñones HPI narrative: Patient comes to the emergency room complaining of multiple perianal lesions that are very painful and itchy. Patient states it has been present for about 3 weeks. Patient has been applying topical cortisone news point with the relief. Patient is known to have discoid lupus. Patient denies any previous history of herpes. Patient denies being sexually active. Patient denies fever or chills. Patient states that she has been scratching the area through her clothes quite a bit to the point that the blisters popped and now she has open sores in the perianal area Related Data Home Medications ?Medication ?Instructions ?Recorded ?Confirmed clonazepam 2 mg tablet 2 mg PO BID 11/23/20 5 dextroamphetamine-amphetamine 10 10 mg PO DAILY 08/26/24 mg tablet (Adderall) ascorbic acid (vitamin C) 500 mg 500 mg PO DAILY 02/0808/26/24 chewable tablet (Vitamin C) zinc 50 mg capsule 50 mg PO DAILY 02/08/2201/12 dicyclomine 20 mg tablet 20 mg PO QID 04/24/23 duloxetine 60 mg capsule,delayed 60 mg PO DAILY 08/26/24 release vilazodone 10 mg tablet 10 mg PO DAILY 07/25/2401/12 Previous Rx's ?Medication ?Instructions ?Recorded polyethylene glycol 3350 17 17 g PO DAILY #119 grams 0 11/17/22 gram/dose oral powder (Miralax) cetirizine 10 mg capsule (Zyrtec) 10 mg PO DAILY PRN a llergy 01/01/23 symptoms #14 caps albuterol sulfate 90 mcg/actuation 1 inh inhalation QI D PRN shortness 08/27/23 aerosol inhaler (Ventolin HFA) of breath or wheezing # 8.5 grams betamethasone dipropionate 0.05 % 1 appl topical DAILY 30 days #60 mL 11/18/23 lotion cyclobenzaprine 5 mg tablet 5 mg PO BEDTIME #14 tabs 1 doxycycline hyclate 100 mg tablet 100 mg PO BID 7 days #14 tabs 08/26/24 amlodipine 2.5 mg tablet 2.5 mg PO DAILY 90 days #90 tabs 11/05/24 cholestyramine (with sugar) 4 gram 4 g PO BID PRN diar lyn 30 days 11/05/24 powder for susp in a packet #180 packets (Questran) wipes #240 ea 02/01/25 cholecalciferol (vitamin D3) 25 25 mcg PO DAILY #90 ta bs 02/02/25 mcg (1,000 unit) tablet metoprolol succinate 50 mg 50 mg PO DAILY #90 tabs 10/12 tablet,extended release 24 hr Resusable bed pads #3 ea 03/04/25 betamethasone, augmented 0.05 % 1 appl topical BID #45 grams 04/20/25 topical ointment lidocaine 5 % topical ointment 1 appl topical QID PRN pain #30 04/20/25 grams Allergies Allergy/AdvReac Type Severity Reaction Status Date / Time ciprofloxacin (From CIPRO) Allergy Intermediate RASH Verified 04/19/25 23:33 penicillin G (Penicillin G) Allergy Mild RASH Verified 04/19/25 23:33 Sulfa (Sulfonamide Allergy Mild RASH Verified 04/19/25 23:33 Antibiotics) (Sulfa (Sulfonamides)) aspirin (Aspirin) AdvReac Mild BLEEDING Verified 04/19/25 23:33 Review of Systems Review of Systems: Constitutional : No Weight loss, No Fever, No Chills, No Night Sweats, No Fatigue, No Malaise ENT/Mouth : No Hearing loss, No Ear Pain, No Nasal Congestion, No Sinus Pain, No Hoarseness, No sore throat, No Rhinorrhea, No Swallowing Difficulty Eyes: No Eye Pain, No Swelling, No Redness, No Foreign Body, No Discharge, No Vision Changes Cardiovascular : No Chest Pain, No SOB, No Dyspnea on Exertion, No Orthopnea, No Edema, No Palpitations Respiratory : No Cough, No Sputum, No Wheezing, No Smoke Exposure, No Dyspnea Gastrointestinal : No Nausea, No Vomiting, No Diarrhea, No Constipation, No abdominal Pain, No Hematochezia, No Melena Genitourinary : no irregular bleeding, No Dysuria, No Urinary Frequency, No Hematuria, No Urinary Incontinence, No Urgency, No Flank Pain, No Urinary Flow Changes, No Hesitancy Musculoskeletal : No joint pain, No Myalgias, No Joint Swelling Skin : Complaining of itchy and painful lesions in the perianal area Neuro : No Weakness, No Numbness, No Paresthesias, No Loss of Consciousness, No Dizziness, No Headache Psych : No Anxiety/Panic, No Depression, No SI/HI/AH/VH, No Social Issues, Heme/Lymph: No Bruising, No Bleeding,No Lymphadenopathy Endocrine : No Polyuria, No Polydipsia, No Temperature Intolerance [facility] Past Medical History Medical History Osteoarthritis involving multiple joints on both sides of body Fibromyalgia Von Willebrand disease Trochanteric bursitis, right hip Elbow pain, left Polyarthralgia Diarrhea following gastrointestinal surgery Discoid lupus Foot callus Essential hypertension Joint pain Thoracic spine pain Breast pain, left Physical exam Diarrhea Screen for colon cancer Mild recurrent major depression DANII (generalized anxiety disorder) IBS (irritable bowel syndrome) Hordeolum externum left upper eyelid Right elbow pain Cholecystectomy planned Insomnia Depression Attention deficit Anxiety Hypertension Surgical History Tubal ligation status History of left salpingo-oophorectomy History of episiotomy Hx laparoscopic cholecystectomy H/O wrist surgery Hx of breast reduction, elective Family History Family History Father Depressed Family history of thyroid problem Stroke Mother High blood pressure Kidney problem Arthritis Social History Social History Household Members: Family Housing: House Alcohol intake: current Alcohol intake frequency: holidays/special occasions only Alcohol type: wine and hard liquor Patient Tobacco Use Status: Never used Tobacco e-Cigarette/Vaping Use: Never Used Second Hand Smoke Exposure: Yes Advance Directives: No Advance Directives Information Provided: No service: No Current occupational status: employed Current occupational exposures/hazards: No Cognitive needs: No Hearing needs: No Vision needs: Yes Physical Exam Exam: Exam: Appearance: Alert. Oriented X3. No acute distress. Eyes: Pupils equal, round and reactive to light. ENT: Pharynx normal. Neck: Normal inspection. Neck supple. No lymph nodes noted. No crepitus CVS: Normal heart rate and rhythm. Pulses normal. Normal S1 and S2 Respiratory: No respiratory distress. Breath sounds normal. No Wheezing. No rales Abdomen: Soft and nontender. No rigidity. No distention. In the perineal area, patient has a combination multiple scratches and skin tears from scratching so much Skin: Skin warm and dry. Normal skin color. Normal skin turgor. Extremities: No lower extremity edema. No Lacerations. No Rash Neuro: Oriented X 3. No motor deficit. No sensory deficit. Moving all extremities. No slurred speech. CN 2 through 12 grossly intact Psych: calm, cooperative, normal affect Vital Signs: Vital Signs: Last Vital Signs Temp 98.2 F 04/19/25 23:28 Pulse 81 04/19/25 23:28 Resp 18 04/19/25 23:28 BP 185/85 H 04/19/25 23:28 Pulse Ox 98 04/19/25 23:28 O2 Del Method Room Air 04/19/25 23:28 BMI result Body Mass Index 27.0 Medical Decision Making Medical Decision Making MDM Narrative: Given the area in the history of previous vesicles that were itchy another painful because she has been scratching so much, herpes was suspected. However, patient states that she has never had herpes in her life and she has not been sexually active for years. There are no signs of cellulitis, drainage or bleeding. Patient known to have discoid lupus. Open skin lesions likely secondary from scratching so much. Patient was given a prescription for dexamethasone and also topical lidocaine to help with the pain. Patient needs close follow-up with her PCP and customer technical services manager. Also, I discussed with the patient to do Sitz bath and had to keep the area clean to prevent any infection Differential Diagnosis Differential Diagnoses: The differential diagnosis associated with the presentation includes (Herpes simplex, discoid lupus, bullous pemphigoid, pemphigoid vulgaris) Discharge Plan Discharge Clinical Impression: Rash Patient Disposition: Home, Self-Care Additional Instructions: Please follow-up with your customer technical services manager and primary care physician tomorrow. If you have any worsening or new symptoms, please return to the emergency room or call 911 Prescriptions: New betamethasone, augmented 0.05 % ointment 1 appl topical BID Qty: 45 0RF lidocaine 5 % ointment 1 appl topical QID PRN (Reason: pain) Qty: 30 0RF No Action polyethylene glycol 3350 [Miralax] 17 gram/dose powder 17 g PO DAILY Qty: 119 0RF betamethasone dipropionate 0.05 % lotion 1 appl topical DAILY 30 Days Qty: 60 0RF amlodipine 2.5 mg tablet 2.5 mg PO DAILY 90 Days Qty: 90 1RF cholestyramine (with sugar) [Questran] 4 gram powder in packet 4 g PO BID PRN (Reason: diarrhea) 30 Days Qty: 180 1RF Rx Instructions: administer w/meal; avoid other meds within 1hr before or 4-6hr after dose (DME) wipes See Rx Instructions .Route .MEDSUPPLY Qty: 240 11RF Rx Instructions: As directed cholecalciferol (vitamin D3) 25 mcg (1,000 unit) tablet 25 mcg PO DAILY Qty: 90 0RF metoprolol succinate 50 mg tablet extended release 24 hr 50 mg PO DAILY Qty: 90 0RF (DME) Resusable bed pads See Rx Instructions .Route .MEDSUPPLY Qty: 3 0RF Rx Instructions: As directed ascorbic acid (vitamin C) [Vitamin C] 500 mg Tablet,Chewable 500 mg PO DAILY zinc 50 mg Capsule 50 mg PO DAILY Zyrtec 10 mg capsule 10 mg PO DAILY PRN (Reason: allergy symptoms) Qty: 14 0RF albuterol sulfate [Ventolin HFA] 90 mcg/actuation HFA aerosol inhaler 1 inh inhalation QID PRN (Reason: shortness of breath or wheezing) Qty: 8.5 1RF clonazepam 2 mg tablet 2 mg PO BID dextroamphetamine-amphetamine [Adderall] 10 mg tablet 10 mg PO DAILY dicyclomine 20 mg tablet 20 mg PO QID duloxetine 60 mg capsule,delayed release(DR/EC) 60 mg PO DAILY vilazodone 10 mg tablet 10 mg PO DAILY cyclobenzaprine 5 mg tablet 5 mg PO BEDTIME Qty: 14 0RF doxycycline hyclate 100 mg tablet 100 mg PO BID 7 Days Qty: 14 0RF Print Language: Hebrew
[2025-04-20 03:38] VITALS: BP 143/60; PULSE 62; RESP 16; TEMP 36.8; O2SAT 96
[2025-04-20 03:43] VITALS: BP 143/60; PULSE 62; RESP 16; TEMP 36.8; O2SAT 96
--- NOTE | 2025-04-20 03:43 | PC.NURSE ---
reviewed discharge instructions with pt. pt verbalized understanding, no sign of distress upon discharge.
== END 2025-04-20 03:44 | disposition home or self-care (01) ==
PROVIDERS: Emergency Provider Emergency Medicine; PCP Internal Medicine
DX: R21 Rash and other nonspecific skin eruption (principal); L93.0 Discoid lupus erythematosus; I10 Essential (primary) hypertension; Z88.0 Allergy status to penicillin; Z88.1 Allergy status to other antibiotic agents; Z88.2 Allergy status to sulfonamides
CPT/HCPCS: 99283; 99284

== ENCOUNTER 2025-04-24 13:55 | Outpatient (AMB) | payer OTHER, SELFPAY ==
--- NOTE | 2025-04-24 14:31 | A.OFFVIS_ITS ---
Vital Signs 04/24/25 14:38 Height 5 ft 4 in Weight 157 lb 10.088 oz BMI 27.1 BP 134/82 Blood Pressure Location Lt brachial Position Sitting Pulse 63 Pulse Source Pulse Oximeter Pulse Oximetry (%) 98 Oxygen Delivery Method Room Air Intake Visit Reasons: follow up Intake Note: Patient presents for Lupus follow up. Slope Hoist Operator Required: No Information Interpreted: non-clinical & clinical Accompanied by: Self / Same As Patient Allergies ciprofloxacin (From CIPRO) Allergy (Intermediate, Verified 04/24/25 14:38) RASH penicillin G (Penicillin G) Allergy (Mild, Verified 04/24/25 14:38) RASH Sulfa (Sulfonamide Antibiotics) (Sulfa (Sulfonamides)) Allergy (Mild, Verified 04/24/25 14:38) RASH aspirin (Aspirin) Adverse Reaction (Mild, Verified 04/24/25 14:38) BLEEDING HPI Comments Details: Patient is a 59-year-old female with hypertension, biopsy-proven discoid lupus (2016), polyarticular OA and fibromyalgia presents today for follow up Interval History: Patient last seen 07/15/2024 with me - On gabapentin 100mg at night - Trochanteric bursitis improved post injection. But starting to have return of pain - Still complaining of whole body pain - Gabapentin does not help and makes her sleepy - gabapentin discontinued and started on cyclobenzaprine Today - on cyclobenzaprine 5 mg at night - evaluation of a new rash. - She reports that she went to the emergency room for a vaginal cyst, and sometime after that, she developed a rash on her buttocks, which is the primary reason for today's visit. - Her vaginal cyst has since resolved - In the emergency room, it was suggested that the rash might be a lupus flare. - The patient denied the possibility of herpes, stating she has not been sexually active for a long time. - She has been applying alcohol to the area, which may have exacerbated the condition. Rheumatologic History: Patient initially presented for evaluation 11/08/2021 with Jerrica Dennison. At that time she was referred for worsening polyarthralgia in the setting of biopsy proven discoid lupus. Serologies done showed negative LUIS DANIEL, rheumatoid factor, CCP, anti DNA and anti LEENA. She had widespread tenderness and multiple fibromyalgia tender points. There was no active synovitis noted. She then followed up 04/24/2023 with Lizzie Vaca complaining of hand pain, elbow pain, and right hip pain. She was given a right trochanteric bursa injection for right trochanteric bursitis. She was also found to have elbow tendonitis which was managed conservatively. With respect to her discoid lupus she was diagnosed 2015 after biopsy. Currently follows with dermatology and uses topical medications. No evidence of systemic involvement. LUIS DANIEL negative. Current Rheumatology Meds: cyclobenzaprine 5 mg at night PFSH Medical History Osteoarthritis involving multiple joints on both sides of body Fibromyalgia Von Willebrand disease Trochanteric bursitis, right hip Elbow pain, left Polyarthralgia Diarrhea following gastrointestinal surgery Discoid lupus Foot callus Essential hypertension Joint pain Thoracic spine pain Breast pain, left Physical exam Diarrhea Screen for colon cancer Mild recurrent major depression DANII (generalized anxiety disorder) IBS (irritable bowel syndrome) Hordeolum externum left upper eyelid Right elbow pain Cholecystectomy planned Insomnia Depression Attention deficit Anxiety Hypertension Surgical History Tubal ligation status History of left salpingo-oophorectomy History of episiotomy Hx laparoscopic cholecystectomy H/O wrist surgery Hx of breast reduction, elective Family History Father Depressed Family history of thyroid problem Stroke Mother High blood pressure Kidney problem Arthritis Social History Household Members: Family Housing: House Alcohol intake: current Alcohol intake frequency: does not drink Alcohol type: wine and hard liquor Patient Tobacco Use Status: Never used Tobacco e-Cigarette/Vaping Use: Never Used Second Hand Smoke Exposure: Yes service: No Current occupational status: employed Current occupational exposures/hazards: No Cognitive needs: No Hearing needs: No Vision needs: Yes Review of Systems Narrative Review of Systems Constitutional: Denies fever, chills, weight loss ENT: Denies vision changes, eye pain or eye redness, dental caries, dry mouth GI: Denies nausea, vomiting, diarrhea, abdominal pain, change in BM Pulm: Denies SOB, KIRBY, hemoptysis, wheezing Cards: Denies chest pain, palpitations MAGNETIC OBSERVER: Denies headaches, weakness, paresthesias, recurrent falls MSK: as per HPI All other systems reviewed and are unremarkable except noted above Physical Exam Exam Exam: Vital signs reviewed Physical Examination CONSTITUITIONAL Patient alert and cooperative. Well appearing and in no apparent painful distress MSK Hands * Right Hand: Able to make a fist. No swelling or tenderness to palpation of the MCPs, PIPs or DIPs. No deformities noted. * Left Hand: Able to make a fist. No swelling or tenderness to palpation of the MCPs, PIPs or DIPs. No deformities noted. Wrists * Right Wrist: Full ROM to flexion and extension. No swelling or TTP * Left Wrist: Full ROM to flexion and extension. No swelling or TTP Elbows * Right Elbow: Full ROM. No swelling or TTP. No TTP of the medial epicondyle. No TTP of the lateral epicondyle * Left Elbow: Full ROM. No swelling or TTP. No TTP of the medial epicondyle. No TTP of the lateral epicondyle Shoulders * Right shoulder: Full ROM. No swelling noted. No TTP of the AC joint. No TTP of the subacromial bursa. No TTP of the posterior shoulder * Left shoulder: Full ROM. No swelling noted. No TTP of the AC joint. No TTP of the subacromial bursa. No TTP of the posterior shoulder Hip bursa: TTP on the right SKIN erythematous rash with irregular borders and satellite lesions. Tender to touch Vital Signs: Last Vital Signs Pulse 63 04/24/25 14:38 BP 134/82 04/24/25 14:38 Pulse Ox 98 04/24/25 14:38 Oxygen Delivery Method Room Air 04/24/25 14:38 BMI result Body Mass Index 27.1 Results Reviewed Results Reviewed: Laboratory Tests 02/21/24 14:46 Double Strand DNA Ab 1 Complement C3 157 Complement C4 29 Assessment & Plan Assessment & Plan (1) Intertriginous candidiasis: Code(s): B37.2 - Candidiasis of skin and nail Plan: #Intertriginous candidiasis Patient is a 59-year-old female here today for evaluation of painful skin rash The patient's rash on her buttocks is not a manifestation of her lupus but is instead clinically diagnosed as intertriginous candidiasis, a fungal infection likely exacerbated by moisture and irritation from alcohol application. The plan includes treatment with oral fluconazole once a week for four weeks and a topical antifungal cream to be applied twice daily. She was advised to discontinue the use of other products on the affected area. Plan - Fluconazole 150mg weekly x 4 - Topical clotrimazole 1% and betamethasone bid - RTC 4 weeks (2) Discoid lupus: Comment: scalp involvement Code(s): L93.0 - Discoid lupus erythematosus Category: Medical Plan: #Discoid Lupus Patient with discoid lupus without evidence of systemic involvement. LUIS DANIEL negative. Currently in remission. (3) Trochanteric bursitis, right hip: Code(s): M70.61 - Trochanteric bursitis, right hip Category: Medical Plan: #Right greater trochanteric bursitis received steroid injection 02/2024 with good results. Has tenderness to palpation on exam today however given her current candidal infection we will hold off on doing any steroids. We will see patient again in 4 weeks and re- evaluate if she has persistent pain we will do steroid injection then Plan I spent 20 minutes reviewing the record and labs, seeing the patient, discussing the treatment plan and documenting in the medical record Medications: New fluconazole 150 mg PO QWEEK 4 tabs 0RF 4 weeks B37.2 - Candidiasis of skin and nail clotrimazole-betamethasone 1-0.05 % 1 appl topical BID 15 grams 0RF 2 weeks B37.2 - Candidiasis of skin and nail Discontinued betamethasone dipropionate 0.05% Discontinued Reason: Doctor's Order 1 appl topical BID 45 grams 0RF betamethasone dipropionate 0.05% Discontinued Reason: Doctor's Order 1 appl topical DAILY 30 days 60 mL 0RF Coding Level of Care Code Est Pt Level 3 (45004) Diagnoses Intertriginous candidiasis B37.2 Discoid lupus L93.0 Trochanteric bursitis, right hip M70.61
[2025-04-24 14:38] VITALS: BP 134/82; PULSE 63; O2SAT 98; BMI 27.1
--- OUTSIDE RECORDS SUMMARY | 2025-04-24 18:12 | XMS_ITS | Clinical Summary ---
Author Organization [facility] Address [address] [place] [address] Care Team Providers Care Radio Disc Jockey Name Role Phone Adela Kwan Primary Care Provider [phone] Allergies Active Allergy Reactions Criticality Noted Date [...] Screening Completed 07/31/2016 Procedures * Due to [place] state law, this organization might not be sharing negative HIV tests. Procedure Name Priority Date/Time Associated Diagnosis Comments HEPATITIS PANEL, ACUTE Routine 07/31/2016 3:25 PM EDT from Last 3 Months or Most Recently Relevant to Health Maintenance Results * Due to [place] state law, this organization might not be sharing negative HIV tests. * (ABNORMAL) Hepatitis Panel, Acute (07/31/2016 3:25 PM EDT) Hepatitis A IgM NON-REACT MARLEN NON-REACT MARLEN [facility] Hepatitis B Surface Antigen NON-REACT MARLEN NON-REACT MARLEN [facility] Hepatitis B Core Antibody NON-REACT MARLEN NON-REACT [facility] Hepatitis C Antibody REACTIVE( H) NON-REACT MARLEN [facility] Signal To Cut-Off 2.08(H) <1.00 QU [facility] Comment: Following CDC recommendations (MMWR No. 62, 2013), this patient's HCV Antibody Reactive sample will be tested for the presence of HCV RNA by a Nucleic Acid Amplification Test (NAAT) to determine if the patient has an active HCV infection. 07/31/2016 3:25 PM EDT 07/31/2016 5:12 PM EDT Kelli Rojas MD LAB BLOOD ORDERABLES Final Re sult KIMANI RODRIGUEZ [address] [facility] 3[address] Floor, [place] [address], [place] [phone] from Last 3 Months or Most Recently Relevant to Health Maintenance Insurance [facility] Care Teams Radio Disc Jockey Relationship Specialty Start Date End Date Adela Kwan [address] [place] [address] [place] [address] PCP - General 12/07/16
== END 2025-04-24 15:07 | disposition home or self-care (01) ==
LOC: HO.RHES 13:56
PROVIDERS: PCP Internal Medicine; Visit Provider Student in an Organized Health Care Education/Training Program
DX: B37.2 Candidiasis of skin and nail (principal); L93.0 Discoid lupus erythematosus; M70.61 Trochanteric bursitis, right hip
CPT/HCPCS: 99213

== ENCOUNTER → 2025-04-24 13:55 | Outpatient (BNVA) | payer OTHER, SELFPAY | PROVIDERS: PCP Internal Medicine; Visit Provider Student in an Organized Health Care Education/Training Program | DX: B37.2 Candidiasis of skin and nail (principal); M70.61 Trochanteric bursitis, right hip; L93.0 Discoid lupus erythematosus | CPT/HCPCS: 99212 ==

== ENCOUNTER 2025-04-27 13:53 | Outpatient (REF) | payer OTHER, SELFPAY ==
[2025-04-27 15:16] LABS: MANUAL DIFF FLAG NO
[2025-04-27 15:31] LABS: Hematocrit 44.2 % (37.0-47.0); Hemoglobin 14.0 g/dl (12.0-16.0); Imm Gran Abs Auto 0.03 X10*3/uL (0.00-0.03); Imm Gran Pct Auto 0.4 % (0.0-0.4); Lymphocytes Absolute Auto 1.9 X10*3/uL (1.2-4.9); Mean Corpuscular HGB Conc 31.7 g/dl (31.0-35.0); Mean Corpuscular Hemoglobin 26.9 pg (27.0-33.0); Mean Corpuscular Volume 84.8 fL (80.0-98.0); NRBC Abs Auto 0.000 X10*3/uL (0.0-0.012); NRBC Pct Auto 0.0 /100WBC (0.0-0.2); Platelet Count 279 X10*3/uL (160-400); Red Blood Count 5.21 X10*6/uL (4.20-5.50); White Blood Count 6.7 X10*3/uL (4.8-10.8)
[2025-04-27 17:24] LABS: Alanine Aminotransferase 18 U/L (0-31); Albumin Level 4.6 g/dL (3.5-5.0); Alkaline Phosphatase 165 U/L (39-117); Anion Gap 11 (12-20); Aspartate Amino Transferase 23 U/L (5-31); Blood Urea Nitrogen 16 mg/dL (9-16); Calcium 9.8 mg/dL (8.4-10.2); Carbon Dioxide 28 mmol/L (22-29); Chloride 110 mmol/L (96-108); Cholesterol 197 mg/dL (<200); Estimated Glomerular Filt Rate 53; HDL Cholesterol 49 mg/dL (>40); Iron 84 mcg/dL (30-160); Percent Iron Saturation 26 % (15-50); Potassium 4.5 mmol/L (3.3-5.1); Sodium 144 mmol/L (135-145); Total Iron Binding Capacity 324 mcg/dL (228-428); Total Protein 8.0 g/dL (6.5-8.0); Triglycerides 163 mg/dL (<150); Unsaturated Iron Binding 240 ug/dL
[2025-04-27 18:00] LABS: Folate 8.6 ng/mL (> or = 4.0); Vitamin B12 1242 pg/mL (200-900)
[2025-04-30 22:29] LABS: Immunoglobulin A 415 mg/dL (47-310); Transglutaminase Ab IgG <1.0 U/mL
== END 2025-04-27 13:54 | disposition home or self-care (01) ==
LOC: HO.LAB 13:53
PROVIDERS: PCP Internal Medicine; Visit Provider Internal Medicine
DX: R21 Rash and other nonspecific skin eruption (principal); R19.7 Diarrhea, unspecified; E78.5 Hyperlipidemia, unspecified; E55.9 Vitamin D deficiency, unspecified; D64.9 Anemia, unspecified; E53.8 Deficiency of other specified B group vitamins; I10 Essential (primary) hypertension; B37.9 Candidiasis, unspecified; Z13.39 Encounter for screening examination for other mental health and behavioral disorders; K58.0 Irritable bowel syndrome with diarrhea; L93.0 Discoid lupus erythematosus
CPT/HCPCS: 36415; 80053; 80061; 82306; 82607; 82746; 82784; 83540; 85025; 86258; 86364; 96127; 99212

== ENCOUNTER 2025-04-27 13:53 | Outpatient (AMB) | payer OTHER, SELFPAY ==
[2025-04-27 13:59] VITALS: BP 128/80; PULSE 67; TEMP 36.6; O2SAT 99; BMI 26.4
--- NOTE | 2025-04-27 13:59 | A.OFFPC_ITS ---
Vital Signs 04/27/25 13:59 Height 5 ft 4 in Weight 154 lb BMI 26.4 BP 128/80 Blood Pressure Location Lt brachial Position Sitting Pulse 67 Pulse Source Pulse Oximeter Temp 97.9 F Temp Source Temporal Artery Scan Pulse Oximetry (%) 99 Oxygen Delivery Method Room Air Intake Visit Reasons: [facility] 04/20 private area rash Radio Personality Required: No Accompanied by: Self / Same As Patient Allergies ciprofloxacin (From CIPRO) Allergy (Intermediate, Verified 04/27/25 14:34) RASH penicillin G (Penicillin G) Allergy (Mild, Verified 04/27/25 14:34) RASH Sulfa (Sulfonamide Antibiotics) (Sulfa (Sulfonamides)) Allergy (Mild, Verified 04/27/25 14:34) RASH aspirin (Aspirin) Adverse Reaction (Mild, Verified 04/27/25 14:34) BLEEDING Medication List - Last Reconciled 04/27/25 by Adela Lopez MD amlodipine 2.5 mg PO DAILY 90 days ascorbic acid (vitamin C) (Vitamin C) 500 mg PO DAILY cetirizine (Zyrtec) 10 mg PO DAILY PRN cholecalciferol (vitamin D3) 25 mcg PO DAILY cholestyramine (with sugar) 4 gram (Questran) 4 grams PO BID PRN 30 days clonazepam 2 mg PO BID clotrimazole-betamethasone 1-0.05 % 1 appl topical BID 2 weeks cyclobenzaprine 5 mg PO BEDTIME dicyclomine 20 mg PO QID duloxetine 60 mg PO DAILY fluconazole 150 mg PO QWEEK 4 weeks lidocaine 5% 1 appl topical QID PRN metoprolol succinate ER 50 mg PO DAILY polyethylene glycol 3350 (Miralax) 17 grams PO DAILY [Resusable bed pads As directed] vilazodone 10 mg PO DAILY [wipes As directed] zinc 50 mg PO DAILY Tobacco use date assessed: 04/27/25 Dental Screening Dental Screen Date: 04/27/25 Did you have a dental visit in the last 12 months?: Yes Did you have a dental problem in the last 6 months where you did not have access to dental care?: No HPI HPI Comments History of Present Illness Details The patient is a 59-year-old female presenting for evaluation of a rash and associated gastrointestinal symptoms. She has a history of discoid lupus, which a vp of digital marketing has stated is in remission, and she is not on hormonal medications or creams for it. The patient reports a rash in the perianal area, which was previously evaluated and thought to be a fungal infection, for which she was prescribed a pill. She describes a sensation of burning with wiping the area. She admits to irritating the area with alcohol, which caused a burn. Associated with this, the patient has experienced clear, scant mucous-like anal discharge that does not soil her underwear. She also reports sometimes passing what appears to be fat in her stool. She has a history of irritable bowel syndrome with constipation, and it is noted that this can be associated with stress and mucus production. The patient's medication list includes amlodipine for blood pressure, which is well-controlled, dicyclomine, and vitamins A, B, and C. She has known allergies to Cipro, penicillin, sulfa, and aspirin, with the latter causing bleeding. Past lab work has shown a consistently normal hemoglobin, with the last reading at 14. [facility] Medical History (Updated 04/27/25 @ 20:20 by Adela Lopez MD) Osteoarthritis involving multiple joints on both sides of body Fibromyalgia Von Willebrand disease Trochanteric bursitis, right hip Elbow pain, left Polyarthralgia Diarrhea following gastrointestinal surgery Discoid lupus Foot callus Essential hypertension Joint pain Thoracic spine pain Breast pain, left Physical exam Diarrhea Screen for colon cancer Mild recurrent major depression DANII (generalized anxiety disorder) IBS (irritable bowel syndrome) Hordeolum externum left upper eyelid Right elbow pain Cholecystectomy planned Insomnia Depression Attention deficit Anxiety Hypertension Surgical History Tubal ligation status History of left salpingo-oophorectomy History of episiotomy Hx laparoscopic cholecystectomy H/O wrist surgery Hx of breast reduction, elective Family History Father Depressed Family history of thyroid problem Stroke Mother High blood pressure Kidney problem Arthritis Social History Household Members: Family Housing: House Alcohol intake: current Alcohol intake frequency: does not drink Alcohol type: wine and hard liquor Patient Tobacco Use Status: Never used Tobacco e-Cigarette/Vaping Use: Never Used Second Hand Smoke Exposure: Yes service: No Current occupational status: employed Current occupational exposures/hazards: No Cognitive needs: No Hearing needs: No Vision needs: Yes Questionnaire Thrive Questionnaire Date Thrive assessed: 04/26/25 I am a: Patient What is your living situation today?: I have a steady place to live Within the past 12 months, did the food you bought not last and you didn't have the money to get more?: Sometimes True Within the past 12 months, did you worry whether your food would run out before you got money to buy more?: Sometimes True Do you have trouble paying for medicines?: No Do you have trouble getting transportation to medical appointments?: Yes Do you have trouble paying your heating and electricity bill?: Yes Do you have trouble taking care of your child, family member or friend?: I choose not to answer this question Do you have trouble with day-to-day activities such as bathing, preparing meals, shopping, managing finances, etc.?: Yes Are you currently unemployed and looking for a job?: I choose not to answer this question Are you interested in more education?: No Please select the resources that you would like help with: Food Currently or been in a relationship where the following occur: No concerns reported THRIVE Score: 4 AUDIT C Alcohol Use Questionnaire (AUDIT-C) 1. How often do you have a drink containing alcohol?: Monthly or less 2. How many drinks containing alcohol do you have on a typical day when you are drinking?: 1 or 2 3. How often do you have six or more drinks on one occasion?: Never Total Score: 1 DANII-7 AMB Questionnaire DANII-7 Date DANII - 7 assessed: 08/26/24 Feeling nervous, anxious, or on edge: 1 = Several days Not being able to stop or control worryin = More than half the days Worrying too much about different things: 3 = Nearly every day Becoming easily annoyed or irritable: 1 = Several days Feeling afraid as if something awful might happen: 1 = Several days Source: Developed by Drs. Tray Sood, Safia Sy, Pardeep Egan and colleagues, with an educational elsie from [employer] DANII-7 Assessment Billing DANII-7 Assessment Tool: DANII-7 Assessment 47050 Review of Systems Const All systems reviewed & are unremarkable except as noted in HPI and below Card Denies chest pain at rest, Denies chest pain with activity, Denies edema, Denies irregular heart rhythm, Denies claudication, Denies dyspnea, Denies dyspnea on exertion, Denies orthopnea, Denies paroxysmal nocturnal dyspnea and Denies slow heart rate Resp Denies cough, Denies dyspnea and Denies dyspnea on exertion GI Denies abdominal pain, Denies change in bowel habits, Denies excessive flatus, Denies nausea and Denies vomiting Denies urinary incontinence, Denies urinary hesitancy and Denies urinary urgency Musc Denies atrophy, Denies deformity and Denies limited range of motion Skin/Breast Denies bleeding lesions, Denies changing lesions and Denies rash Physical exam (Primary Care) Vital Signs: Last Vital Signs Temp 97.9 F 04/27/25 13:59 Pulse 67 04/27/25 13:59 BP 128/80 04/27/25 13:59 Pulse Ox 99 04/27/25 13:59 Oxygen Delivery Method Room Air 04/27/25 13:59 BMI result Body Mass Index 26.4 Tobacco/Smoking Status: Tobacco use Status Tobacco use date assessed 04/27/25 04/27/25 14:02 Patient Tobacco Use Status Never used Tobacco 04/27/25 14:00 e-Cigarette/Vaping Use Never Used 04/27/25 14:00 Thrive Assessment: Date of Thrive Assessment Date Thrive assessed 04/26/25 04/27/25 14:00 Currently or been in a relationship where the following occur: No concerns reported Resp Effort & Inspection: normal respiratory effort Auscultation: clear to auscultation bilaterally Cardio Jugular venous distension: no JVD Rate: regular rate Rhythm: regular rhythm Heart sounds: S1 normal heart sound present and S2 normal heart sound present Extrem General: Yes full ROM Coding Level of Care Code Complex visit Add On G2211 Diagnoses Essential hypertension I10 Irritable bowel syndrome with diarrhea K58.0 Irritable bowel syndrome type: with diarrhea Discoid lupus L93.0 Candidiasis B37.9 Additional Codes DANII-7 Assessment Billing - DANII-7 Assessment Tool: DANII-7 Assessment 26816 ([id number]) Time Spent (min) 21 Assessment & Plan Assessment & Plan (1) Essential hypertension: Code(s): I10 - Essential (primary) hypertension Category: Medical (2) IBS (irritable bowel syndrome): Code(s): K58.9 - Irritable bowel syndrome, unspecified Category: Medical Qualifiers: Irritable bowel syndrome type: with diarrhea Qualified Code(s): K58.0 - Irritable bowel syndrome with diarrhea (3) Discoid lupus: Comment: scalp involvement Code(s): L93.0 - Discoid lupus erythematosus Category: Medical (4) Candidiasis: Code(s): B37.9 - Candidiasis, unspecified Category: Medical Plan Plan 1. Perianal Rash (Fungal Infection And Irritation) The physical exam confirms a fungal infection is present in the perianal area, which has become irritated. The patient's symptoms are consistent with this diagnosis. She has been advised not to apply any more alcohol to the area. A follow-up appointment will be scheduled to re-evaluate the area. 2. Steatorrhea The patient reports passing fat in her stool, which may indicate malabsorption. While malabsorption syndromes like celiac disease are often associated with anemia, the patient has never been anemic. Laboratory tests will be ordered to investigate for malabsorption, though the test may be negative. 3. Irritable Bowel Syndrome The patient has a history of IBS with constipation, and her reported symptom of mucus in the stool can be a manifestation of this condition, particularly when there is associated inflammation. The plan is to manage this in conjunction with her other symptoms. 4. Hypertension Continue AMlodipine. BP goal is equal or less than 130/80. 5. Discoid lupus Follow with rheumatology. Orders: Orders Celiac Diagnostic Gliadin TTG Today R19.7 - Diarrhea, unspecified Lipid Panel Today E78.5 - Hyperlipidemia, unspecified Vitamin B12 and Folate Today E53.8 - Deficiency of other specified B group vitamins Vitamin D 25-OH Total Today E55.9 - Vitamin D deficiency, unspecified Complete Blood Count Auto Diff Today D64.9 - Anemia, unspecified IRON PROFILE Today D64.9 - Anemia, unspecified Comprehensive [place]. Panel Fast Today I10 - Essential (primary) hypertension
--- OUTSIDE RECORDS SUMMARY | 2025-04-27 22:40 | XMS_ITS | Clinical Summary ---
Author Organization [facility] Address [address] [place] [address] Care Team Providers Care Biology Department Chair Name Role Phone Adela Kwan Primary Care Provider [phone] Allergies Active Allergy Reactions Criticality Noted Date [...] Screening Completed 07/31/2016 Procedures * Due to [place] state law, this organization might not be sharing negative HIV tests. Procedure Name Priority Date/Time Associated Diagnosis Comments HEPATITIS PANEL, ACUTE Routine 07/31/2016 3:25 PM EDT from Last 3 Months or Most Recently Relevant to Health Maintenance Results * Due to [place] state law, this organization might not be sharing negative HIV tests. * (ABNORMAL) Hepatitis Panel, Acute (07/31/2016 3:25 PM EDT) Hepatitis A IgM NON-REACT MARLEN NON-REACT MARLEN [facility] Hepatitis B Surface Antigen NON-REACT MARLEN NON-REACT MARLEN [facility] Hepatitis B Core Antibody NON-REACT MARLEN NON-REACT MARLEN [facility] Hepatitis C Antibody REACTIVE( H) NON-REACT MARLEN [facility] Signal To Cut-Off 2.08(H) <1.00 QU [facility] Comment: Following CDC recommendations (MMWR No. 62, 2013), this patient's HCV Antibody Reactive sample will be tested for the presence of HCV RNA by a Nucleic Acid Amplification Test (NAAT) to determine if the patient has an active HCV infection. 07/31/2016 3:25 PM EDT 07/31/2016 5:12 PM EDT Kelli Rojas MD LAB BLOOD ORDERABLES Final Re sult [facility]IM[facility] RODRIGUE[facility] [address] [facility] 3rd Floor, [place] [address], [place] [phone] from Last 3 Months or Most Recently Relevant to Health Maintenance Insurance [facility] Care Teams Biology Department Chair Relationship Specialty Start Date End Date Adela Kwan [address] [place] [address] [place] [id number] PCP - General 12/07/16
== END 2025-04-27 14:51 | disposition home or self-care (01) ==
LOC: HO.HMCH 13:54
PROVIDERS: PCP Internal Medicine; Visit Provider Internal Medicine
DX: I10 Essential (primary) hypertension (principal); K58.0 Irritable bowel syndrome with diarrhea; L93.0 Discoid lupus erythematosus; B37.9 Candidiasis, unspecified